=== PATIENT | male | born 1960 | race Caucasian/White ===

== ENCOUNTER 2024-06-28 21:35 | Emergency (ER) | payer MEDICARE, SELFPAY ==
--- NOTE | ~2024-06-28 | CT_ITS ---
EXAMINATION: CT brain wo con DATE: 06/28/2024 21:59 INDICATION: cva . TECHNIQUE: Computed tomography (CT) of the head was performed without intravenous contrast. The mA wa s adjusted according to patient size. Iterative reconstruction technique was employed. The dose-lengt h product was 681.00 mGy-cm. COMPARISON: 09/06/2015. FINDINGS: No acute intracranial hemorrhage or extra-axial fluid collection. No hydrocephalus, mass, or herniation. No acute ischemic infarct. Unremarkable dural venous sinus attenuation. No acute osseous abnormality. Old nasal bone fractures. Bilateral maxillary, frontal, and ethmoid mucosal thickening, small air-fluid level in the right sphe noid sinus, the remaining aerated spaces are clear. Mild atrophy and chronic white matter change. Atherosclerotic intracranial calcification. Focal calci fication in the right posterior frontal parenchyma. IMPRESSION: No acute intracranial process. Small air-fluid level in the right sphenoid sinus, may represent acute sinusitis in the appropriate c linical context. Results reported telephonically to Dr. De Leon by Dr. Cheng at 10:05 PM on 06/28/2024. Reviewed, dictated and finalized at location K. IMPRESSION: No acute intracranial process. Small air-fluid level in the right sphenoid sinus, may represent acute sinusiti s in the appropriate clinical context. Results reported telephonically to Dr. De Leon by Dr. Cheng at 10:05 PM on .
--- NOTE | ~2024-06-28 | CT_ITS ---
EXAMINATION: CTA brain carotid DATE: 06/28/2024 22:19 INDICATION: CVA TECHNIQUE: Computed tomographic angiography (CTA) of the head and neck was performed with 100 mL Omni paque-350 intravenous contrast. Automated exposure control and iterative reconstruction technique wer e employed. The dose-length product was 1313.87 mGy-cm. Maximum intensity projection and volume rend ered 3D-reconstructions were created by the technologist on a separate workstation. COMPARISON: CT brain, same date. FINDINGS: CTA HEAD: No large vessel occlusion, aneurysm, high flow vascular malformation, nidus or extravasation. Patent cerebral veins. Symmetric parenchymal enhancement. CTA NECK: Aortic arch and proximal great vessels: Mild arch calcification. Normal arch anatomy. Right common carotid, carotid bifurcation, and internal carotid artery: Moderate calcified and noncal cified plaque at the bifurcation.There is 30% stenosis of the proximal right internal carotid artery relative to normal distal artery lumen diameter (NASCET criteria). Left common carotid, carotid bifurcation, and internal carotid artery: Heavy calcified and noncalcifi ed plaque at the bifurcation.There is 32% stenosis of the proximal left internal carotid artery relat neisha to normal distal artery lumen diameter (NASCET criteria). Vertebral arteries: Severe left and moderate right short segment stenosis at the vertebral artery osbaldo gins with associated calcified plaque. Vertebral arteries co-dominant. Other findings: Focal scarring in the peripheral left lower lobe degenerative changes in the cervical spine. Multiple old rib fractures. IMPRESSION: No large vessel intracranial occlusion, high-grade intracranial stenosis, or aneurysm. No carotid or vertebral artery occlusion or dissection. Severe left and moderate right vertebral artery origin stenoses. Reviewed, dictated and finalized at location K. IMPRESSION: No large vessel intracranial occlusion, high-grade intracranial stenosis, or an eurysm. No carotid or vertebral artery occlusion or dissection. Severe left and moderate right vertebral artery origin stenoses.
--- NOTE | ~2024-06-28 | XR_ITS ---
EXAMINATION: XR chest 1V Exam Date/Time: 06/28/2024 22:03 CDT HISTORY: cva Comparison: 08/11/2016. RESULT: Lines, tubes, and devices: None. Lungs and pleura: Clear. Cardiomediastinal silhouette: Stable. Other: No acute osseous or upper abdominal finding. IMPRESSION: No acute cardiopulmonary process. Reviewed, dictated and finalized at location K.
[2024-06-28 21:44] LABS: Glucose Point of Care 174 mg/dl (65-105)
--- NOTE | 2024-06-28 21:53 | ECG_ITS ---
Test Date: 2024-06-28 22:24:53 Measurements Intervals [place] Rate: 76 P: 74 AR: 163 QRS: 68 QRSD: 112 T: 71 QT: 429 QTc: 484 Interpretive Statements SINUS RHYTHM INCOMPLETE LEFT BUNDLE BRANCH BLOCK BORDERLINE ST-T WAVE ABNORMALITY- HIGH LATERAL LEADS BASELINE ARTIFACT- I, II, III, AVR, AVL, AVF BORDERLINE ECG No previous ECG available for comparison Electronically Signed On 06-29-2024 09:07:05 CDT by Warren Faith D.O.
[2024-06-28 22:06] LABS: Basophils Absolute Auto 0.1 K/mm3 (0.0-0.1); Basophils Percent Auto 0.8 % (0.2-1.2); Eosinophils Absolute Auto 0.3 K/mm3 (0-0.3); Eosinophils Percent Auto 3.8 % (0-4.4); Hematocrit 41.4 % (42.0-52.0); Hemoglobin 13.8 g/dL (14.0-18.0); Immature Granulocyte Absolute 0.02 K/mm3 (0.00-0.031); Immature Granulocyte Percent A 0.3 % (0-0.5); Lymphocytes Absolute Auto 2.82 K/mm3 (0.9-3.2); Lymphocytes Percent Auto 38.7 % (18.3-44.2); Mean Corpuscular HGB Conc 33.3 g/dl (32-36); Mean Corpuscular Hemoglobin 30.6 pg (26-34); Mean Corpuscular Volume 91.8 fl (80-100); Monocytes Absolute Auto 0.4 K/mm3 (0.1-0.6); Monocytes Percent Auto 5.6 % (2.6-8.5); Neutrophils Absolute Auto 3.7 K/mm3 (1.3-6.7); Neutrophils Percent Auto 50.8 % (45.5-73.1); Platelet Count Result 202 k/mm3 (150-375); Red Blood Count 4.51 M/mm3 (4.6-6.20); Red Cell Distribution Width 13.2 % (11.5-14.5); White Blood Count 7.3 K/mm3 (4.5-10.0)
[2024-06-28 22:11] VITALS: BP 111/66; PULSE 80; RESP 19; TEMP 36.9; O2SAT 97
[2024-06-28 22:16] VITALS: BP 106/73; PULSE 79; RESP 18; O2SAT 96
[2024-06-28 22:16] LABS: INR 0.9; Prothrombin Time 13.1 Seconds (11.1-14.7)
[2024-06-28 22:18] LABS: Alanine Aminotransferase 19 U/L (6-50); Albumin Level 4.3 g/dL (3.5-5.1); Alkaline Phosphatase 58 U/L (38-126); Anion Gap 15 mmol/L (4-12); Aspartate Amino Transferase 28 U/L (17-59); Bilirubin,Total 0.3 mg/dL (0.2-1.3); Blood Urea Nitrogen 14 mg/dL (9-20); Calcium 8.3 mg/dL (8.4-10.2); Carbon Dioxide 18 mmol/L (22-30); Chloride 106 mmol/L (98-107); Estimated CRCL calculation 83 ml/min; Estimated Glomerular Filt Rate > 60; Glucose 155 mg/dL (65-110); Potassium 3.9 mmol/L (3.4-5.0); Sodium 139 mmol/L (137-145)
[2024-06-28 22:21] LABS: Partial Thromboplastin Time 26.8 Seconds (22.3-36.8)
[2024-06-28 22:22] VITALS: BP 106/73; PULSE 78; PULSE 79; RESP 20; O2SAT 98
[2024-06-28 22:27] LABS: Glucose Point of Care 177 mg/dl (65-105)
[2024-06-28 22:29] LABS: Troponin I 0.015 ng/mL (0.000-0.034)
[2024-06-28] MEDS: ASPIRIN 325 MG TABLET PO (23:06)
[2024-06-28] MEDS: CLOPIDOGREL BISULFATE 300 MG TABLET PO (23:07)
[2024-06-28] MEDS: MORPHINE SULFATE (*CRX) 4 MG/ML INJ IV PUSH (23:11)
[2024-06-28 23:12] VITALS: BP 116/59; PULSE 84; RESP 19; O2SAT 96
[2024-06-28 23:13] VITALS: BP 116/59; PULSE 80; PULSE 81; RESP 16; TEMP 36.6; O2SAT 96
[2024-06-28 23:18] LABS: Ethanol 106 mg/dL (<10)
--- NOTE | 2024-06-28 23:58 | ED.NEUROSD ---
HPI - Neuro Symptoms/Deficit General Chief Complaint: Suspected CVA Stated Complaint: Choking episode, drooling, possible L droop? Time Seen by Provider: 06/28/24 21:53 History of Present Illness HPI Narrative: 63-year-old male with a past medical history significant for diabetes, hypertension, obstructive sleep apnea, atrial fibrillation not on Eliquis. Presents today with left-sided facial symptoms including facial droop, slurring of speech and dropping food of his mouth and now onset left upper extremity left lower extremity weakness. EMS was initially called to scene at approximately noon for the patient's symptoms that were onset however he refused transport at that time. noted that he had worsening symptoms throughout the day and now developing profound left-sided dysarthria, facial droop, arm and leg weakness. She called EMS a 2nd time with transport him to the hospital. Patient is awake alert oriented able answer all my questions although he has severe speech deficits with dysarthria and left-sided facial droop. Left-sided arm drift is 4/5, leg drift 3/5 against gravity. No ataxia. Not any blood thinner medications aside from a baby aspirin confirmed by the at bedside. Was otherwise in his normal state of health without any trauma, accidents, injuries or infections. Related Data Allergies Allergy/AdvReac Type Severity Reaction Status Date / Time No Known Allergies Allergy Verified 10/31/16 09:03 Review of Systems Review of Systems: All systems reviewed & are unremarkable except as noted in HPI and below Exam Narrative: GENERAL: Slurring his speech, left-sided facial droop, not in any acute distress and answering questions to the best of his abilities HEAD: [Normocephalic, atraumatic.] EYES: [PERRLA and EOMI.] ENT: Nares clear, no rhinorrhea or epistaxis. Mucous membranes moist. NECK: Supple. CHEST: [Clear to auscultation. No respiratory distress.] HEART: [Regular rate and rhythm]. No murmur heard. [Normal peripheral pulses.] ABDOMEN: [Soft, nondistended], [nontender], [No rigidity or guarding] EXTREMITIES: Normal range of motion. [No edema.] SKIN: Warm, dry, no rash. NEURO: Left-sided arm and leg drift worsening left lower extremity. No ataxia, dysarthria and left-sided facial droop. Alert and oriented [x3.] PSYCH: [Normal mood and affect.] Course Vital Signs Vital signs: Vital Signs Temperature 36.9 C 06/28/24 22:11 Pulse Rate 80 06/28/24 22:11 Respiratory Rate 19 06/28/24 22:11 Blood Pressure 111/66 06/28/24 22:11 Pulse Oximetry 97 06/28/24 22:11 Oxygen Delivery Room Air 06/28/24 22:11 Temperature 36.6 C 06/28/24 23:13 Pulse Rate 80 06/28/24 23:13 Respiratory Rate 16 06/28/24 23:13 Blood Pressure 116/59 L 06/28/24 23:13 Pulse Oximetry 96 06/28/24 23:13 Oxygen Delivery Room Air 06/28/24 22:11 MDM - Neuro Symptoms/Deficit MDM Narrative Medical decision making narrative: 63-year-old male presenting for concerns of acute ischemic stroke. He has left-sided arm and leg drift worse in the left lower extremity. Left-sided facial droop and slurring of his speech with dysarthria. Onset of symptoms approximately noon according to the family members providing collateral. Patient of self is able to answer questions albeit difficult to understand given his level of dysarthria. He has normal reassuring vital signs with any significant blood pressure concerns, he is afebrile, saturating well on room air without any tachycardia. Left-sided arm and leg drift, left-sided facial droop and dysarthria without any ataxia or confusion. Stroke was activated given his symptoms onset within 24 hours and concerns for potential LVO. He is outside the window for TNK. CT head, CT head and neck angiography was ordered as well as a cardiac workup with troponin, EKG, chest x-ray, PT, PTT, CBC and CMP. Point of care glucose was normal. Workup revealed no leukocytosis or
[2024-06-29 01:04] VITALS: BP 122/68; PULSE 76; RESP 16; TEMP 36.6; O2SAT 96
[2024-06-29 01:24] VITALS: BP 124/76; PULSE 77; RESP 16; TEMP 36.6; O2SAT 99
[2024-06-29 02:00] VITALS: BP 124/76; PULSE 77; RESP 16; O2SAT 97
[2024-06-29 23:40] LABS: Estimated CRCL calculation 70 ml/min; Estimated Glomerular Filt Rate > 60
== END 2024-06-29 02:17 | disposition short-term general hospital (02) ==
PROVIDERS: Emergency Provider Student in an Organized Health Care Education/Training Program; PCP Physician Assistant
DX: I63.213 Cerebral infarction due to unspecified occlusion or stenosis of bilateral vertebral arteries (principal); I10 Essential (primary) hypertension; I48.91 Unspecified atrial fibrillation; E11.9 Type 2 diabetes mellitus without complications; G47.33 Obstructive sleep apnea (adult) (pediatric); R29.702 NIHSS score 2; Z79.82 Long term (current) use of aspirin; I44.7 Left bundle-branch block, unspecified; R94.31 Abnormal electrocardiogram [ECG] [EKG]
CPT/HCPCS: 36415; 70450; 70496; 70498; 71045; 80053; 80307; 82948; 84484; 85025; 85610; 85730; 93005; 96374; 99285; A9270; J2270; Q9967

== ENCOUNTER 2024-08-13 19:48 | Emergency (ER) | payer MEDICARE, SELFPAY ==
--- NOTE | ~2024-08-13 | XR_ITS ---
CHEST RADIOGRAPH, PA AND LATERAL CLINICAL HISTORY: lightheaded . COMPARISON: 06/28/2024 TECHNIQUE: PA and lateral views of the chest. FINDINGS The cardiomediastinal silhouette is unremarkable. The lungs are clear. Visualized osseous structures and soft tissues are unremarkable. IMPRESSION: No focal infiltrate or effusion. Reviewed, dictated and finalized at location A. ORY FOCUS TECHNICIAN
[2024-08-13 19:50] VITALS: BP 140/77; PULSE 75; RESP 16; TEMP 36.4; O2SAT 99
--- NOTE | 2024-08-13 19:53 | ECG_ITS ---
Test Date: 2024-08-13 19:55:18 Measurements Intervals [place] Rate: 72 P: 57 VA: 170 QRS: 57 QRSD: 120 T: 73 QT: 418 QTc: 457 Interpretive Statements SINUS RHYTHM INCOMPLETE LEFT BUNDLE BRANCH BLOCK BORDERLINE ST-T WAVE ABNORMALITY- INF/HIGH LAT LEADS BASELINE ARTIFACT- V4-V6 BORDERLINE ECG Compared to ECG 06/28/2024 22:24:53 NO SIGNIFICANT CHANGE Electronically Signed On 08-13-2024 20:30:57 BUSINESS DEVELOPMENT EXECUTIVE by Warren Faith D.O.
--- NOTE | 2024-08-13 21:20 | ED.GENADULT ---
HPI - General Adult General Chief complaint: Recheck/Abnormal Lab/Rx <Phil Vela MD - Last Filed: 08/13/24 21:27> Stated complaint: DIABETIC ISSUES, RECENT HEART STENT <Phil Vela MD - Last Filed: 08/13/24 21:27> Time Seen by Provider: 08/13/24 20:03 <Phil Vela MD - Last Filed: 08/13/24 21:27> History of Present Illness HPI narrative: patient is a 63-year-old male who presents ER after having an episode of feeling lightheaded and diaphoretic. Sudden onset this evening about 45 minutes prior to arrival. He was at rest when it occurred. It was not associated with any chest pain or vomiting. Patient was dizzy and nauseous. EMS arrived and patient's blood sugar was 60. After receiving D10 IV symptoms abated. He is resting comfortably at this time. Reports he recently had a CVA. He then underwent additional testing at [facility] where they performed a PAULA which showed a hole in his heart. He also underwent a stress test that was abnormal. He then had a stent placed in a blood vessel. He reports since then he has had some achiness to his right side that is been unchanged. He also reports since the stroke he has had some drooling from his left mouth but that his face is less droopy than had been before. He is supposed to start speech therapy here. <Phil Vela MD - Last Filed: 08/13/24 21:27> Related Data Allergies/adverse reactions: Allergies Allergy/AdvReac Type Severity Reaction Status Date / Time No Known Allergies Allergy Verified 08/13/24 19:57 <Phil Vela MD - Last Filed: 08/13/24 21:27> Review of Systems Review of Systems: All systems reviewed & are unremarkable except as noted in HPI and below <Phil Vela MD - Last Filed: 08/13/24 21:27> Constitutional: Constitutional: Reports no additional constitutional complaints <Phil Vela MD - Last Filed: 08/13/24 21:27> ENT: Reports dizziness, Denies nasal congestion and Denies sore throat <Phil Vela MD - Last Filed: 08/13/24 21:27> Cardiovascular: Cardiovascular: Reports no additional cardiovascular complaints <Phil Vela MD - Last Filed: 08/13/24 21:27> Respiratory: Respiratory: Reports no additional respiratory complaints <Phil Vela MD - Last Filed: 08/13/24 21:27> Gastrointestinal: Gastrointestinal: Reports no additional gastrointestinal complaints <Phil Vela MD - Last Filed: 08/13/24 21:27> Integumentary/Breasts: Skin/Breast: Reports system reviewed and no additional complaints, except as docu <Phil Vela MD - Last Filed: 08/13/24 21:27> PMFSH Past Medical History Medical History: Medical History (Updated 08/13/24 @ 21:27 by Phil Vela MD) CAD (coronary atherosclerotic disease) COPD (chronic obstructive pulmonary disease) CVA (cerebral vascular accident) Diabetes Hyperlipidemia <Phil Vela MD - Last Filed: 08/13/24 21:27> Surgical History Surgical History: Surgical History (Updated 08/13/24 @ 21:24 by Phil Vela MD) History of percutaneous coronary intervention <Phil Vela MD - Last Filed: 08/13/24 21:27> Exam Narrative: GENERAL: Well-appearing, well-nourished, and in no acute distress. HEAD: Normocephalic, atraumatic. ENT: Mucous membranes moist. CHEST: Clear to auscultation. No respiratory distress. HEART: Regular rate and rhythm. Normal peripheral pulses. ABDOMEN: Soft, nontender, nondistended. EXTREMITIES: Normal range of motion. No edema. SKIN: Warm, dry, no rash. NEURO: Alert and oriented x3. PSYCH: Normal mood and affect. <Phil Vela MD - Last Filed: 08/13/24 21:27> Course Course Emergency Course: Patient signed out to me pending 2nd troponin. He did successfully p.o. challenge without incident and his repeat blood sugar was 200 mg/dL. 2nd troponin within normal limits. Stable for discharge and advised follow up with PCP as well as his specialists given his history and recent history. <Carole Hensley MD - Last Filed: 08/14/24 17:45> Vital Signs Vital signs: Vital Signs Temperature 97.5 F L 08/13/24 19:50 Pulse Rate 75 08/13/24 19:50 Respiratory Rate 16 08/13/24 19:50 Blood Pressure 140/77 08/13/24 19:50 Pulse Oximetry 99 08/13/24 19:50 Oxygen Delivery Room Air 08/13/24 19:50 Temperature 97.5 F L 08/13/24 19:50 Pulse Rate 81 08/14/24 01:30 Respiratory Rate 18 08/14/24 01:30 Blood Pressure 151/83 H 08/14/24 01:30 Pulse Oximetry 97 08/14/24 01:30 Oxygen Delivery Room Air 08/13/24 19:50 <Phil Vela MD - Last Filed: 08/13/24 21:27> Vital Signs Temperature 97.5 F L 08/13/24 19:50 Pulse Rate 75 08/13/24 19:50 Respiratory Rate 16 08/13/24 19:50 Blood Pressure 140/77 08/13/24 19:50 Pulse Oximetry 99 08/13/24 19:50 Oxygen Delivery Room Air 08/13/24 19:50 Temperature 97.5 F L 08/13/24 19:50 Pulse Rate 81 08/14/24 01:30 Respiratory Rate 18 08/14/24 01:30 Blood Pressure 151/83 H 08/14/24 01:30 Pulse Oximetry 97 08/14/24 01:30 Oxygen Delivery Room Air 08/13/24 19:50 <Carole Hensley MD - Last Filed: 08/14/24 17:45> Medical Decision Making Vital Signs Vital Signs: Vital Signs Temperature 97.5 F L 08/13/24 19:50 Pulse Rate 75 08/13/24 19:50 Respiratory Rate 16 08/13/24 19:50 Blood Pressure 140/77 08/13/24 19:50 Pulse Oximetry 99 08/13/24 19:50 Oxygen Delivery Room Air 08/13/24 19:50 Temperature 97.5 F L 08/13/24 19:50 Pulse Rate 81 08/14/24 01:30 Respiratory Rate 18 08/14/24 01:30 Blood Pressure 151/83 H 08/14/24 01:30 Pulse Oximetry 97 08/14/24 01:30 Oxygen Delivery Room Air 08/13/24 19:50 <Phil Vela MD - Last Filed: 08/13/24 21:27> Vital Signs Temperature 97.5 F L 08/13/24 19:50 Pulse Rate 75 08/13/24 19:50 Respiratory Rate 16 08/13/24 19:50 Blood Pressure 140/77 08/13/24 19:50 Pulse Oximetry 99 08/13/24 19:50 Oxygen Delivery Room Air 08/13/24 19:50 Temperature 97.5 F L 08/13/24 19:50 Pulse Rate 81 08/14/24 01:30 Respiratory Rate 18 08/14/24 01:30 Blood Pressure 151/83 H 08/14/24 01:30 Pulse Oximetry 97 08/14/24 01:30 Oxygen Delivery Room Air 08/13/24 19:50 <Carole Hensley MD - Last Filed: 08/14/24 17:45> Lab Data Result diagrams: 08/13/24 21:26 08/13/24 21:26 <Phil Vela MD - Last Filed: 08/13/24 21:27> Labs: Lab Results 08/13/24 08/13/24 08/14/24 Range/Units 21:26 22:01 00:23 WBC 10.0 (4.5-10.0) K/mm3 RBC 4.34 L (4.6-6.20) M/mm3 Hgb 13.2 L (14.0-18.0) g/dL Hct 39.0 L (42.0-52.0) % MCV 89.9 (80-100) fl MCH 30.4 (26-34) pg MCHC 33.8 (32-36) g/dl RDW 12.7 (11.5-14.5) % Plt Count 187 (150-375) k/mm3 MPV 10.0 (7.4-10.4) fl Immature Gran % (Auto) 0.3 (0-0.5) % Neut % (Auto) 68.5 (45.5-73.1) % Lymph % (Auto) 20.8 (18.3-44.2) % [place] % (Auto) 7.0 (2.6-8.5) % Eos % (Auto) 2.6 (0-4.4) % Baso % (Auto) 0.8 (0.2-1.2) % Lymph # (Auto) 2.07 (0.9-3.2) K/mm3 [place] # (Auto) 0.7 H (0.1-0.6) K/mm3 Eos # (Auto) 0.3 (0-0.3) K/mm3 Baso # (Auto) 0.1 (0.0-0.1) K/mm3 Abs Immat Gran (auto) 0.03 (0.00-0.031) K/mm3 Absolute Neuts (auto) 6.8 H (1.3-6.7) K/mm3 Absolute Nucleated RBC 0.000 (0.0-0.012) K/mm3 Nucleated RBC % 0.0 (0.0-0.2) % PT 15.9 H (11.1-14.7) Seconds INR 1.2 APTT 30.9 (22.3-36.8) Seconds Sodium 137 (137-145) mmol/L Potassium 3.6 (3.4-5.0) mmol/L Chloride 105 (98-107) mmol/L Carbon Dioxide 22 (22-30) mmol/L Anion Gap 10 (4-12) mmol/L BUN 15 (9-20) mg/dL Creatinine 0.70 (0.7-1.3) mg/dL Estim Creat Clear Calc 116 ml/min Estimated GFR > 60 (59 - ) Glucose 140 H (65-110) mg/dL POC Capillary Glucose 272 H (65-105) mg/dl Calcium 8.6 (8.4-10.2) mg/dL Total Bilirubin 0.5 (0.2-1.3) mg/dL AST 24 (17-59) U/L ALT 21 (6-50) U/L Alkaline Phosphatase 46 (38-126) U/L Troponin I < 0.012 (0.000-0.034) ng/mL Total Protein 7.0 (6.3-8.2) g/dL Albumin 4.3 (3.5-5.1) g/dL Urine Color Yellow (Yellow) Urine Appearance Clear (Clear) Urine pH 5.5 (5.0-9.0) Ur Specific [place] 1.039 H (1.001-1.035) Urine Protein Negative (Negative) mg/dL Urine Glucose (UA) 3+ H (Negative) mg/dL Urine Ketones Negative (Negative) mg/dL Ur Blood (Man) Negative (Negative) Urine Nitrate Negative (Negative) Urine Bilirubin Negative (Negative) Urine Urobilinogen 1.0 (<2.0) mg/dL Leukocyte Esterase Rfl Negative (Negative) KARON/UL 08/14/24 Range/Units 00:25 WBC (4.5-10.0) K/mm3 RBC (4.6-6.20) M/mm3 Hgb (14.0-18.0) g/dL Hct (42.0-52.0) % MCV (80-100) fl MCH (26-34) pg MCHC (32-36) g/dl RDW (11.5-14.5) % Plt Count (150-375) k/mm3 MPV (7.4-10.4) fl Immature Gran % (Auto) (0-0.5) % Neut % (Auto) (45.5-73.1) % Lymph % (Auto) (18.3-44.2) % [place] % (Auto) (2.6-8.5) % Eos % (Auto) (0-4.4) % Baso % (Auto) (0.2-1.2) % Lymph # (Auto) (0.9-3.2) K/mm3 [place] # (Auto) (0.1-0.6) K/mm3 Eos # (Auto) (0-0.3) K/mm3 Baso # (Auto) (0.0-0.1) K/mm3 Abs Immat Gran (auto) (0.00-0.031) K/mm3 Absolute Neuts (auto) (1.3-6.7) K/mm3 Absolute Nucleated RBC (0.0-0.012) K/mm3 Nucleated RBC % (0.0-0.2) % PT (11.1-14.7) Seconds INR APTT (22.3-36.8) Seconds Sodium (137-145) mmol/L Potassium (3.4-5.0) mmol/L Chloride (98-107) mmol/L Carbon Dioxide (22-30) mmol/L Anion Gap (4-12) mmol/L BUN (9-20) mg/dL Creatinine (0.7-1.3) mg/dL Estim Creat Clear Calc ml/min Estimated GFR (59 - ) Glucose (65-110) mg/dL POC Capillary Glucose (65-105) mg/dl Calcium (8.4-10.2) mg/dL Total Bilirubin (0.2-1.3) mg/dL AST (17-59) U/L ALT (6-50) U/L Alkaline Phosphatase (38-126) U/L Troponin I < 0.012 (0.000-0.034) ng/mL Total Protein (6.3-8.2) g/dL Albumin (3.5-5.1) g/dL Urine Color (Yellow) Urine Appearance (Clear) Urine pH (5.0-9.0) Ur Specific [place] (1.001-1.035) Urine Protein (Negative) mg/dL Urine Glucose (UA) (Negative) mg/dL Urine Ketones (Negative) mg/dL Ur Blood (Man) (Negative) Urine Nitrate (Negative) Urine Bilirubin (Negative) Urine Urobilinogen (<2.0) mg/dL Leukocyte Esterase Rfl (Negative) KARON/UL <Phil Vela MD - Last Filed: 08/13/24 21:27> Lab Results 08/13/24 08/13/24 08/14/24 Range/Units 21:26 22:01 00:23 WBC 10.0 (4.5-10.0) K/mm3 RBC 4.34 L (4.6-6.20) M/mm3 Hgb 13.2 L (14.0-18.0) g/dL Hct 39.0 L (42.0-52.0) % MCV 89.9 (80-100) fl MCH 30.4 (26-34) pg MCHC 33.8 (32-36) g/dl RDW 12.7 (11.5-14.5) % Plt Count 187 (150-375) k/mm3 MPV 10.0 (7.4-10.4) fl Immature Gran % (Auto) 0.3 (0-0.5) % Neut % (Auto) 68.5 (45.5-73.1) % Lymph % (Auto) 20.8 (18.3-44.2) % [place] % (Auto) 7.0 (2.6-8.5) % Eos % (Auto) 2.6 (0-4.4) % Baso % (Auto) 0.8 (0.2-1.2) % Lymph # (Auto) 2.07 (0.9-3.2) K/mm3 [place] # (Auto) 0.7 H (0.1-0.6) K/mm3 Eos # (Auto) 0.3 (0-0.3) K/mm3 Baso # (Auto) 0.1 (0.0-0.1) K/mm3 Abs Immat Gran (auto) 0.03 (0.00-0.031) K/mm3 Absolute Neuts (auto) 6.8 H (1.3-6.7) K/mm3 Absolute Nucleated RBC 0.000 (0.0-0.012) K/mm3 Nucleated RBC % 0.0 (0.0-0.2) % PT 15.9 H (11.1-14.7) Seconds INR 1.2 APTT 30.9 (22.3-36.8) Seconds Sodium 137 (137-145) mmol/L Potassium 3.6 (3.4-5.0) mmol/L Chloride 105 (98-107) mmol/L Carbon Dioxide 22 (22-30) mmol/L Anion Gap 10 (4-12) mmol/L BUN 15 (9-20) mg/dL Creatinine 0.70 (0.7-1.3) mg/dL Estim Creat Clear Calc 116 ml/min Estimated GFR > 60 (59 - ) Glucose 140 H (65-110) mg/dL POC Capillary Glucose 272 H (65-105) mg/dl Calcium 8.6 (8.4-10.2) mg/dL Total Bilirubin 0.5 (0.2-1.3) mg/dL AST 24 (17-59) U/L ALT 21 (6-50) U/L Alkaline Phosphatase 46 (38-126) U/L Troponin I < 0.012 (0.000-0.034) ng/mL Total Protein 7.0 (6.3-8.2) g/dL Albumin 4.3 (3.5-5.1) g/dL Urine Color Yellow (Yellow) Urine Appearance Clear (Clear) Urine pH 5.5 (5.0-9.0) Ur Specific [place] 1.039 H (1.001-1.035) Urine Protein Negative (Negative) mg/dL Urine Glucose (UA) 3+ H (Negative) mg/dL Urine Ketones Negative (Negative) mg/dL Ur Blood (Man) Negative (Negative) Urine Nitrate Negative (Negative) Urine Bilirubin Negative (Negative) Urine Urobilinogen 1.0 (<2.0) mg/dL Leukocyte Esterase Rfl Negative (Negative) KARON/UL 08/14/24 Range/Units 00:25 WBC (4.5-10.0) K/mm3 RBC (4.6-6.20) M/mm3 Hgb (14.0-18.0) g/dL Hct (42.0-52.0) % MCV (80-100) fl MCH (26-34) pg MCHC (32-36) g/dl RDW (11.5-14.5) % Plt Count (150-375) k/mm3 MPV (7.4-10.4) fl Immature Gran % (Auto) (0-0.5) % Neut % (Auto) (45.5-73.1) % Lymph % (Auto) (18.3-44.2) % [place] % (Auto) (2.6-8.5) % Eos % (Auto) (0-4.4) % Baso % (Auto) (0.2-1.2) % Lymph # (Auto) (0.9-3.2) K/mm3 [place] # (Auto) (0.1-0.6) K/mm3 Eos # (Auto) (0-0.3) K/mm3 Baso # (Auto) (0.0-0.1) K/mm3 Abs Immat Gran (auto) (0.00-0.031) K/mm3 Absolute Neuts (auto) (1.3-6.7) K/mm3 Absolute Nucleated RBC (0.0-0.012) K/mm3 Nucleated RBC % (0.0-0.2) % PT (11.1-14.7) Seconds INR APTT (22.3-36.8) Seconds Sodium (137-145) mmol/L Potassium (3.4-5.0) mmol/L Chloride (98-107) mmol/L Carbon Dioxide (22-30) mmol/L Anion Gap (4-12) mmol/L BUN (9-20) mg/dL Creatinine (0.7-1.3) mg/dL Estim Creat Clear Calc ml/min Estimated GFR (59 - ) Glucose (65-110) mg/dL POC Capillary Glucose (65-105) mg/dl Calcium (8.4-10.2) mg/dL Total Bilirubin (0.2-1.3) mg/dL AST (17-59) U/L ALT (6-50) U/L Alkaline Phosphatase (38-126) U/L Troponin I < 0.012 (0.000-0.034) ng/mL Total Protein (6.3-8.2) g/dL Albumin (3.5-5.1) g/dL Urine Color (Yellow) Urine Appearance (Clear) Urine pH (5.0-9.0) Ur Specific [place] (1.001-1.035) Urine Protein (Negative) mg/dL Urine Glucose (UA) (Negative) mg/dL Urine Ketones (Negative) mg/dL Ur Blood (Man) (Negative) Urine Nitrate (Negative) Urine Bilirubin (Negative) Urine Urobilinogen (<2.0) mg/dL Leukocyte Esterase Rfl (Negative) KARON/UL <Carole Hensley MD - Last Filed: 08/14/24 17:45> Imaging Data Radiologist's impression: ITS Impressions Chest X-Ray 08/13/24 20:35 IMPRESSION: No focal infiltrate or effusion. <Phil Vela MD - Last Filed: 08/13/24 21:27> ECG Data EKG #1: ECG completion date: 08/13/24 <Phil Vela MD - Last Filed: 08/13/24 21:27> ECG completion time: 19:55 <Phil Vela MD - Last Filed: 08/13/24 21:27> EKG Interpretation: normal rate (72), sinus rhythm, non-specific ST changes, widened QRS, normal QT and NL axis <Phil Vela MD - Last Filed: 08/13/24 21:27> Discharge Plan Discharge Clinical Impression: Hypoglycemia <Phil Vela MD - Last Filed: 08/13/24 21:27> Patient Disposition: Home, Self-Care <Phil Vela MD - Last Filed: 08/13/24 21:27> Condition: Stable <Phil Vela MD - Last Filed: 08/13/24 21:27> Instructions: Antibiotic Form, Hypoglycemia in a Person with Diabetes (DC) <Phil Vela MD - Last Filed: 08/13/24 21:27> Additional Instructions: Continue taking your medications as prescribed. Follow-up with your primary care physician as well as the rest of your care team/specialists. Return to the emergency department with any new or worsening symptoms. <Phil Vela MD - Last Filed: 08/13/24 21:27> Follow-up/Referrals: Lee,MIC Zamora [Primary Care Provider] - <Phil Vela MD - Last Filed: 08/13/24 21:27> Stand Alone Forms: Work/School Release IP <Phil Vela MD - Last Filed: 08/13/24 21:27> Time of Disposition: 01:11 <Phil Vela MD - Last Filed: 08/13/24 21:27> 01:11 <Carole Hensley MD - Last Filed: 08/14/24 17:45>
[2024-08-13 21:30] LABS: Basophils Absolute Auto 0.1 K/mm3 (0.0-0.1); Basophils Percent Auto 0.8 % (0.2-1.2); Eosinophils Absolute Auto 0.3 K/mm3 (0-0.3); Eosinophils Percent Auto 2.6 % (0-4.4); Hemoglobin 13.2 g/dL (14.0-18.0); Immature Granulocyte Absolute 0.03 K/mm3 (0.00-0.031); Immature Granulocyte Percent A 0.3 % (0-0.5); Lymphocytes Absolute Auto 2.07 K/mm3 (0.9-3.2); Lymphocytes Percent Auto 20.8 % (18.3-44.2); Mean Corpuscular HGB Conc 33.8 g/dl (32-36); Mean Corpuscular Hemoglobin 30.4 pg (26-34); Mean Corpuscular Volume 89.9 fl (80-100); Monocytes Absolute Auto 0.7 K/mm3 (0.1-0.6); Neutrophils Absolute Auto 6.8 K/mm3 (1.3-6.7); Neutrophils Percent Auto 68.5 % (45.5-73.1); Platelet Count Result 187 k/mm3 (150-375); Red Blood Count 4.34 M/mm3 (4.6-6.20); Red Cell Distribution Width 12.7 % (11.5-14.5)
[2024-08-13 21:42] LABS: Alanine Aminotransferase 21 U/L (6-50); Albumin Level 4.3 g/dL (3.5-5.1); Alkaline Phosphatase 46 U/L (38-126); Anion Gap 10 mmol/L (4-12); Aspartate Amino Transferase 24 U/L (17-59); Bilirubin,Total 0.5 mg/dL (0.2-1.3); Blood Urea Nitrogen 15 mg/dL (9-20); Calcium 8.6 mg/dL (8.4-10.2); Carbon Dioxide 22 mmol/L (22-30); Chloride 105 mmol/L (98-107); Estimated CRCL calculation 116 ml/min; Estimated Glomerular Filt Rate > 60; Glucose 140 mg/dL (65-110); Potassium 3.6 mmol/L (3.4-5.0); Sodium 137 mmol/L (137-145)
[2024-08-13 21:45] LABS: INR 1.2; Prothrombin Time 15.9 Seconds (11.1-14.7)
[2024-08-13 21:46] LABS: Partial Thromboplastin Time 30.9 Seconds (22.3-36.8)
--- NOTE | 2024-08-13 21:51 | PC.NURSE ---
- Luisa - leaving to go home. She can be phone if pt. is d/c or for any update [phone].
[2024-08-13 21:54] LABS: Troponin I < 0.012 ng/mL (0.000-0.034)
--- NOTE | 2024-08-13 21:59 | PC.NURSE ---
Pt able to stand at bedside independently with no difficulty.
[2024-08-13 22:04] VITALS: BP 138/70; PULSE 78; RESP 16; O2SAT 98
[2024-08-13 22:14] LABS: Add Urine Microscopic? NO; Appearance Urine Clear (Clear); Bilirubin Urine Negative (Negative); Blood Urine Negative (Negative); Color Urine Yellow (Yellow); Glucose Urine UA 3+ mg/dL (Negative); Ketones Urine Negative (Negative); Leukocyte Esterase Ur Negative LEU/UL (Negative); Nitrate Urine Negative (Negative); Protein Urine Negative (Negative); Specific Grav Ur 1.039 (1.001-1.035); pH Urine 5.5 (5.0-9.0)
--- NOTE | 2024-08-13 22:18 | PC.NURSE ---
Pt c/o of a 03/11 headache and requesting medication. Md Vela notified. verbal order given for tylenol.
[2024-08-13] MEDS: ACETAMINOPHEN 325 MG TABLET 650 MG PO (22:40)
--- NOTE | 2024-08-14 00:19 | ECG_ITS ---
Test Date: 2024-08-14 00:19:25 Measurements Intervals [place] Rate: 81 P: 54 LA: 170 QRS: 54 QRSD: 114 T: 59 QT: 395 QTc: 460 Interpretive Statements SINUS RHYTHM INCOMPLETE LEFT BUNDLE BRANCH BLOCK DELAYED PRECORDIAL R/S TRANSITION ABNORMAL ECG Compared to ECG 08/13/2024 19:55:18 NO SIGNIFICANT CHANGE Electronically Signed On 08-14-2024 08:05:17 STEVEDORING SUPERVISOR by Warren Faith D.O.
[2024-08-14 00:27] LABS: Glucose Point of Care 272 mg/dl (65-105)
[2024-08-14 00:34] VITALS: RESP 16; O2SAT 97
--- NOTE | 2024-08-14 00:35 | PC.NURSE ---
pt states he feels fine after eating
[2024-08-14 00:51] LABS: Troponin I < 0.012 ng/mL (0.000-0.034)
[2024-08-14 01:03] VITALS: BP 173/66; PULSE 77; RESP 16; O2SAT 96
[2024-08-14 01:30] VITALS: BP 151/83; PULSE 81; RESP 18; O2SAT 97
== END 2024-08-14 01:32 | disposition home or self-care (01) ==
PROVIDERS: Emergency Medicine; Emergency Provider Student in an Organized Health Care Education/Training Program; PCP Physician Assistant
DX: E11.649 Type 2 diabetes mellitus with hypoglycemia without coma (principal); I25.10 Atherosclerotic heart disease of native coronary artery without angina pectoris; J44.9 Chronic obstructive pulmonary disease, unspecified; E78.5 Hyperlipidemia, unspecified; Z86.73 Personal history of transient ischemic attack (TIA), and cerebral infarction without residual deficits; I44.7 Left bundle-branch block, unspecified
CPT/HCPCS: 36415; 71046; 80053; 81003; 82948; 84484; 85025; 85610; 85730; 93005; 99284; A9270

== ENCOUNTER 2024-08-18 11:30 | Emergency (ER) | payer MEDICARE, SELFPAY ==
[2024-08-18 11:34] VITALS: BP 136/81; PULSE 85; RESP 20; TEMP 36.6; O2SAT 99
[2024-08-18] MEDS: TETANUS,DIPHTHERIA,AC PERTUSSIS ADULT (0.5 ML) BOOSTRIX IM (12:31)
--- NOTE | 2024-08-18 12:32 | ED_ITS ---
HPI - General Adult General Chief complaint: Wound/Laceration Stated complaint: leg lac Time Seen by Provider: 08/18/24 11:51 History of Present Illness HPI narrative: 63-year-old male presenting with a laceration to his left leg. Patient dropped a carbon fiber cutting device on his left leg sustaining a shallow 4 cm laceration. They were unable to control the bleeding at home he has been losing for the last 1 hour. Patient is on aspirin Plavix and Eliquis. No other injuries. Unknown last tetanus. Related Data Allergies Allergy/AdvReac Type Severity Reaction Status Date / Time No Known Allergies Allergy Verified 08/13/24 19:57 [facility] Past Medical History Medical History CAD (coronary atherosclerotic disease) COPD (chronic obstructive pulmonary disease) CVA (cerebral vascular accident) Diabetes Hyperlipidemia Surgical History Surgical History History of percutaneous coronary intervention Exam Narrative: APPEARANCE: No apparent distress. Head: atraumatic. EYES: EOMI, NOSE: Atraumatic NECK: Trachea midline RESPIRATORY: No increased rate of breathing CARDIOVASCULAR: RRR, ABDOMINAL: Non-distended MUSCULOSKELETAl: No obvious deformities NEURO: Alert. Moving 4/4 extremities SKIN:: 4 cm linear laceration to the inside of the left thigh, minor oozing PSYCHIATRIC: Normal affect Course Vital Signs Vital signs: Vital Signs Temperature 97.8 F 08/18/24 11:34 Pulse Rate 85 08/18/24 11:34 Respiratory Rate 20 08/18/24 11:34 Blood Pressure 136/81 08/18/24 11:34 Pulse Oximetry 99 08/18/24 11:34 Temperature 97.8 F 08/18/24 11:34 Pulse Rate 85 08/18/24 11:34 Respiratory Rate 20 08/18/24 11:34 Blood Pressure 136/81 08/18/24 11:34 Pulse Oximetry 99 08/18/24 11:34 Medical Decision Making [facility] Narrative Medical decision making narrative: -Course: 63-year-old male presenting with a leg laceration minor bleeding. Bleeding was controlled with direct pressure. Wound was explored with no foreign bodies and irrigated profusely. Wound was repaired using x5 4-0 Prolene sutures in a simple interrupted pattern. Bleeding was controlled. Patient placed on Keflex as he is high risk for infection (DM.) Given return precautions. Suture removal in 14 days. -Procedures: 4 cm simple laceration repair to the left thigh using Prolene sutures times -Interventions: Tdap -Shared decision making / Disposition: Discharge -RX Keflex 5 mg b.i.d. Vital Signs Vital Signs: Vital Signs Temperature 97.8 F 08/18/24 11:34 Pulse Rate 85 08/18/24 11:34 Respiratory Rate 20 08/18/24 11:34 Blood Pressure 136/81 08/18/24 11:34 Pulse Oximetry 99 08/18/24 11:34 Temperature 97.8 F 08/18/24 11:34 Pulse Rate 85 08/18/24 11:34 Respiratory Rate 20 08/18/24 11:34 Blood Pressure 136/81 08/18/24 11:34 Pulse Oximetry 99 08/18/24 11:34 Discharge Plan Discharge Clinical Impression: Laceration Patient Disposition: Home, Self-Care Condition: Stable Instructions: Antibiotic Form, Care For Your Stitches (ED) Additional Instructions: You wereseen in the emergency department for a laceration to her leg. Please complete the antibiotics as instructed. Please see medical professional in 14 days for suture removal. If you develop signs of infection such as redness, swelling, increased pain, or purulent discharge please return emergency department immediately. Prescriptions: New cephalexin 500 mg capsule 500 mg PO Q12H Qty: 10 0RF Follow-up/Referrals: Lee,MIC Zamora [Primary Care Provider] -
== END 2024-08-18 13:50 | disposition home or self-care (01) ==
PROVIDERS: Emergency Provider Emergency Medicine; PCP Physician Assistant
DX: S71.112A Laceration without foreign body, left thigh, initial encounter (principal); W45.8XXA Other foreign body or object entering through skin, initial encounter; I25.10 Atherosclerotic heart disease of native coronary artery without angina pectoris; J44.9 Chronic obstructive pulmonary disease, unspecified; E11.9 Type 2 diabetes mellitus without complications; E78.5 Hyperlipidemia, unspecified; Z86.73 Personal history of transient ischemic attack (TIA), and cerebral infarction without residual deficits; Z23 Encounter for immunization
CPT/HCPCS: 12001; 90471; 90715; 99283

== ENCOUNTER 2025-02-16 14:21 | Emergency (ER) | payer MEDICARE, SELFPAY ==
[2025-02-16 14:25] VITALS: BP 143/95; PULSE 69; RESP 20; TEMP 36.6; O2SAT 100
--- OUTSIDE RECORDS SUMMARY | 2025-02-16 14:36 | XMS_ITS | Encounter Summary ---
Author Organization [facility] Address [address] [place] [address] Care Team Providers Care Relief Manager Name Role Phone Sera Howard Primary Care Provider [phone] Rikki Romero MD Unavailable [phone] Sultan Maria Luisa Teran MD Unavailable [phone] Keenan Mckoy RN Unavailable Emmy Barragan [facility] Unavailable Cary Pena MD Unavailable [phone] Shyann Mijares MA Unavailable Rigoberto Rodriguez MD Unavailable [phone] Ching Chun LPN Unavailable [phone] Encounter Details Date Type Department Care Team (Late st Contact Info) Description 07/06/2015 Orders Only [facility] Health Information Management [address] [place] [address] Scanning, Provider Social History Tobacco Use Types Packs/Day Years Used Date Smoking Tobacco: Never Assessed Sex and Gender Information Value Date Recorded Sex Assigned at Not on file Legal Sex Male 6:48 AM SUPERVISOR 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 difficile Comment:2012 01/08/2015 01/06/2015 04/18/2022 7:55 AM C DT COVID: Suspected 10/25/2021 10/27/2021 10/27/2021 8:01 PM SUPERVISOR FIREWORKS ASSEMBLY COVID: Suspected 04/15/2022 04/15/2022 04/15/2022 4:54 PM CDT COVID: Suspected 11/05/2024 11/05/2024 11/05/2024 9:48 AM SUPERVISOR FIREWORKS ASSEMBLY COVID: Suspected 12/23/2024 12/23/2024 12/23/2024 9:13 AM CDT documented as of this encounter Care Teams Relief Manager Relationship Specialty Start Date End Date Sera Howard PA [address] [facility] [address] [facility] [address] [place] [address] PCP - General Internal Medicine 01/03/19 Rikki Romero MD [address] [facility] [address] [place] [address] Consulting Physician Pulmonary Disease 01/30/19 Sultan Maria Luisa Teran MD [address] [facility] [address] [address] Line Service Person Cardiovascular Disease 01/30/19 Keenan Mckoy, GABO [address] [facility] [address] [place] [address] Outpatient Dietitian 07/04/24 09/12/24 Emmy Barragan RPh [address] [facility] [address] [place] [address] Pharmacist Pharmacy 07/31/24 08/01/24 [place] [address] [address] [facility] [address] [place] [address] Consulting Physician Cardiovascular Disease 08/27/24 Shyann Mijares MA [address] [place] [address] [address] [place] [address] ACO Care Heating Worker 11/06/24 11/07/24 Rigoberto Rodriguez MD [address] [place] [address] [address] [place] [address] Surgeon Thoracic Surgery 01/06/25 Ching Chun LPN [address] [place] [address] [address] [place] [address] Outpatient Dietitian 01/07/25 01/07/25 documented as of this encounter
--- OUTSIDE RECORDS SUMMARY | 2025-02-16 14:37 | XMS_ITS | Clinical Summary ---
Author Organization [facility] Address [address] [place] [address] Care Team Providers Care Railroad Repairer Name Role Phone Unavailable Primary Care Provider Unavailabl e Social History Tobacco Use Types Packs/Day Years Used Date Smoking Tobacco: Never Assessed Sex and Gender Information Value Date Recorded Sex Assigned at Not on file Legal Sex Male 6:39 PM CDT Gender Identity Not on file Sexual Orientation Not on file Plan of Treatment Health Maintenance Due Date Last Done Comments Colorectal Cancer Screening Colonoscopy (10 Years) 1962 Annual Physical 1965 Hepatitis C 1980 DTaP, Tdap and Td Vaccines ( 1 - Tdap) 1981 Pneumococcal Vaccine: 50+ Ye ars (1 of 1 - PCV) 2012 Zoster Vaccines (1 of 2) 2012 COVID-19 Vaccine ( - 2023-2 5 season) 2024 RSV Immunization or 60+ Years (1 - 1-dose 75+ series) 2037 Meningococcal B Vaccine Aged Out No l onger eligible based on patient's age to complete this topic Meningococcal Vaccine Aged Out No vinicius cindy eligible based on patient's age to complete this topic RSV Immunizations Under 20 Months Aged Out No longer eligible based on patient's age to complete this topic
--- OUTSIDE RECORDS SUMMARY | 2025-02-16 14:37 | XMS_ITS | Encounter Summary ---
Author Organization [facility] Care Team Providers Care Academic Support Assistant Name Role Phone Sera Howard Primary Care Provider [phone]- [phone] Rikki Romero MD Unavailable [phone] Sultan Maria Luisa Teran MD Unavailable [phone] Keenan Mckoy RN Unavailable [phone] Emmy Barragan [facility] Unavailable Cary Pena MD Unavailable [phone] Shyann Mijares MA Unavailable Rigoberto Rodriguez MD Unavailable [phone] Ching Chun LPN Unavailable [phone] Encounter Details Date Type Department Care Team (Latest Contact Info) Description 01/08/2015 Orders Only [facility] ProviderKumar MD [address] [place] [address] Social History Tobacco Use Types Packs/Day Years Used Date Smoking Tobacco: Never Assessed Sex and Gender Information Value Date Recorded Sex Assigned at Not on file Legal Sex Male 6:48 AM INTAKE SPECIALIST Gender Identity Not on file Sexual Orientation Not on file documented as of this encounter Plan of Treatment Not on file documented as of this encounter Procedures Procedure Name Priority Date/Time Associated Diagnosis Comments SCAN - LABS 10/28/2016 12:00 AM INTAKE SPECIALIST CARDIOLOGY REPORT 10/26/2016 12: 00 AM INTAKE SPECIALIST CARDIOLOGY REPORT 10/26/2016 12: 00 AM INTAKE SPECIALIST CARDIOLOGY REPORT 10/26/2016 12: 00 AM INTAKE SPECIALIST documented in this encounter Results * SCAN - LABS (10/28/2016 12:00 AM INTAKE SPECIALIST) Narrative 10/28/2016 12:00 AM INTAKE SPECIALIST Ordered by an unspecified provider. [facility] Provider Final Res ult * CARDIOLOGY REPORT (10/26/2016 12:00 AM INTAKE SPECIALIST) Anatomical Region Laterality Modality Other Narrative 10/26/2016 12:00 AM INTAKE SPECIALIST Ordered by an unspecified provider. [facility] Provider CV CARDIAC SERVICES PROCE DURES Final Result * CARDIOLOGY REPORT (10/26/2016 12:00 AM INTAKE SPECIALIST) Anatomical Region Laterality Modality Other Narrative 10/26/2016 12:00 AM INTAKE SPECIALIST Ordered by an unspecified provider. [facility] Provider CV CARDIAC SERVICES PROCE DURES Final Result * CARDIOLOGY REPORT (10/26/2016 12:00 AM INTAKE SPECIALIST) Anatomical Region Laterality Modality Other Narrative 10/26/2016 12:00 AM INTAKE SPECIALIST Ordered by an unspecified provider. [facility] Provider CV CARDIAC SERVICES PROCE DURES Final Result documented in this encounter Visit Diagnoses Not on filedocumented in this encounter Additional Health Concerns Infection Onset Date Last Indicated Resolved Time C. difficile Comment:2012 01/08/2015 01/06/2015 04/18/2022 7:55 AM C DT COVID: Suspected 10/25/2021 10/27/2021 10/27/2021 8:01 PM INTAKE SPECIALIST COVID: Suspected 04/15/2022 04/15/2022 04/15/2022 4:54 PM CDT COVID: Suspected 11/05/2024 11/05/2024 11/05/2024 9:48 AM INTAKE SPECIALIST COVID: Suspected 12/23/2024 12/23/2024 12/23/2024 9:13 AM CDT documented as of this encounter Care Teams Academic Support Assistant Relationship Specialty Start Date End Date Sera Howard PA [address] [facility] [address] [facility] [address] [place] [address] PCP - General Internal Medicine 01/03/19 Rikki Romero MD [address] [facility] [address] [facility] [address] [place] [address] Consulting Physician Pulmonary Disease 01/30/19 Sultan Maria Luisa Teran MD [address] [facility] [facility] [address] [place] [address] Supervisor [place] Cardiovascular Disease 01/30/19 Keenan Mckoy, GABO [address] [place] [address] [address] [place] [address] Trencher Driver 07/04/24 09/12/24 Emmy Barragan, [address] [place] [address] Pharmacist Pharmacy 07/31/24 08/01/24 [place] [address] [address] [facility] [address] [place] [address] Consulting Physician Cardiovascular Disease 08/27/24 Shyann Mijares MA [address] [place] [address] [address] [place] [address] ACO Care Academic Advising Director 11/06/24 11/07/24 Rigoberto Rodriguez MD [address] [place] [address] [address] [place] [address] Surgeon Thoracic Surgery 01/06/25 Ching Chun LPN [address] [place] [address] [address] [place] [address] Trencher Driver 01/07/25 01/07/25 documented as of this encounter
--- OUTSIDE RECORDS SUMMARY | 2025-02-16 14:37 | XMS_ITS | Encounter Summary ---
Author Organization [facility] Healthcare Address [address] [place] [address] Care Team Providers Care Mass Spectrometry Manager Name Role Phone eSra Howard Primary Care Provider [phone]- [phone] Rikki Romero MD Unavailable [phone] Sultan Maria Luisa Teran MD Unavailable [phone] Keenan Mckoy RN Unavailable Emmy Barragan [facility] Unavailable Cary Pena MD Unavailable Shyann Mijares MA Unavailable Rigoberto Rodriguez MD Unavailable [phone] Ching Chun LPN Unavailable [phone] Encounter Details Date Type Department Care Team (Late st Contact Info) Description 06/28/2024 Orders Only [facility] Health Information Management [address] [place] [address] Scanning, Provider Social History Tobacco Use Types Packs/Day Years Used Date Smoking Tobacco: Former Cigarettes 0.2 42 0 01/30/1979 - 01/30/2021 Cigars Smokeless Tobacco: Never Alcohol Use Standard Drinks/Week Comments Yes 0 (1 standard drink = 0.6 oz pur e alcohol) AUDIT-C Answer Date Recorded Q1: How often do you have a drink containing alcohol? Never 06/13/2024 Q2: How many drinks containi ng alcohol do you have on a typical day when you are drinking? Patient does not drink Q3: How often do you have si x or more drinks on one occasion? Never 06/13/2024 PHQ-2 Answer Date Recorded PHQ-2 Total Score 0 11/02/2023 Personal Safety Answer Date Recorded Have you ever been in or are you currently in a harmful physical or emotional relationship or is someone making you feel afraid or unsafe? 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 DIRECTOR Gender Identity Not on file Sexual Orientation Not on file Occupation Industry Job Start Date Job End Date Disablilty Not on file Not on file Not on file documented as of this encounter Plan of Treatment Not on file documented as of this encounter Procedures Procedure Name Priority Date/Time Associated Diagnosis Comments SCAN - RADIOLOGY/IMAGING 06/28/2024 documented in this encounter Results * SCAN - RADIOLOGY/IMAGING (06/28/2024) Anatomical Region Laterality Modality Other Provider Scanning Final Result documented in this encounter Visit Diagnoses Not on filedocumented in this encounter Additional Health Concerns Infection Onset Date Last Indicated Resolved Time COVID: Suspected 11/05/2024 11/05/2024 11/05/2024 9:48 AM WORKDAY DIRECTOR COVID: Suspected 12/23/2024 12/23/2024 12/23/2024 9:13 AM CDT documented as of this encounter Care Teams Mass Spectrometry Manager Relationship Specialty Start Date End Date Sera Howard PA [address] [facility] [address] [place] [address] PCP - General Internal Medicine 01/03/19 Rikki Romero MD [address] [facility] [address] [place] [address] Consulting Physician Pulmonary Disease 01/30/19 Sultan Maria Luisa Teran MD [address] [facility] [address] [address] Railroad Operator Cardiovascular Disease 01/30/19 Keenan Mckoy, RN [address] [place] [address] [address] [place] [address] Hereditary Cancer Program Coordinator 07/04/24 09/12/24 Emmy Barragan, [address] [place] [address] Pharmacist Pharmacy 07/31/24 08/01/24 [place] [address] [address] [facility] [address] [place] [address] Consulting Physician Cardiovascular Disease 08/27/24 Shyann Mijares MA [address] [place] [address] [address] [place] [address] ACO Care Planting Supervisor 11/06/24 11/07/24 Rigoberto Rodriguez MD [address] [place] [address] [address] [place] [address] Surgeon Thoracic Surgery 01/06/25 Ching Chun LPN [address] [place] [address] [address] [place] [address] Hereditary Cancer Program Coordinator 01/07/25 01/07/25 documented as of this encounter
--- OUTSIDE RECORDS SUMMARY | 2025-02-16 14:37 | XMS_ITS | Clinical Summary ---
[place] [facility] [place] [address] [facility] Address [address] [place] [address] Care Team Providers Care Design Printing Machine Setter Name Role Phone Sera Howard Primary Care Provider [phone] Rikki Romero MD Unavailable [phone] Sultan Maria Luisa Teran MD Unavailable [phone] Cary Pena MD Unavailable [phone] Rigoberto Rodriguez MD Unavailable [phone] Allergies No known active allergies Medications empagliflozin (Jardiance) 25 mg tabletIndication s:type 2 diabetes mellitus Take 1 tablet (25 mg total) by mouth daily E11.65 90 tablet 4 02/07/20 24 Active acetaminophen (TYLENOL) 325 mg tablet Take 2 tablets (650 mg total) by mouth every 8 (eight) hours as needed 07/02/20 24 Active OneTouch Delica Plus Lancet 33 gauge misc USE 1 LANCETS TO CHECK GLUCOSE TWICE DAILY BEFORE BREAKFAST AND DINNER 05/14/20 24 Active pen needle, diabetic 32 gauge x 5/32 needleIndication s:Type 2 diabetes mellitus with diabetic polyneuropathy, without long-term current use of insulin (HCC) Use to inject insulin up to 4times/day. E11.65 100 each 3 07/08/20 24 Active lancets misc 1 each by other route daily Use to monitor blood sugar daily. E11.65 100 each 3 07/08/20 24 Active blood-glucose meter kit Use daily as directed for monitoring of blood sugar for diabetes. E11.65 1 kit 1 07/08/20 24 Active blood glucose diagnostic (glucose blood) strip Check blood sugar daily or as directed. E11.65 100 each 4 07/08/20 24 Active buPROPion XL (WELLBUTRIN XL) 300 mg 24 hr tablet Take 1 tablet (300 mg total) by mouth every morning 90 tablet 1 08/27/20 24 Active Brilinta 90 mg tablet Take 1 tablet (90 mg total) by mouth 2 (two) times a day Active melatonin tablet Take 1 tablet (3 mg total) by mouth nightly as needed for sleep Active UNABLE TO FIND Take 1 each by mouth nightly as needed (sleep) Med Name: Jayden PM Active apixaban (Eliquis) 5 mg tablet Take 1 tablet by mouth twice daily 200 tablet 1 11/15/19 25 Active losartan (COZAAR) 100 mg tablet Take 1 tablet by mouth once daily 90 tablet 11/15/19 25 Active nitroglycerin (NITROSTAT) 0.4 mg SL tablet DISSOLVE ONE TABLET UNDER THE TONGUE EVERY 5 MINUTES NEEDED FOR CHEST PAIN. DO NOT EXCEED A TOTAL OF 3 DOSES IN 15 MINUTES 12/05/19 25 Active albuterol 2.5 mg /3 mL (0.083 %) nebulizer solutionIndicati ons:Moderate persistent asthma without complication,Chr onic obstructive pulmonary disease, unspecified COPD type (HCC),Seasonal allergic rhinitis due to pollen Take 3 mL (2.5 mg total) by nebulization 3 (three) times a day For treatment of COPD, J44.9 270 mL 3 12/11/19 25 Active tiotropium bromide (Spiriva Respimat) 2.5 mcg/actuation inhaler Inhale 2 puffs daily 1 each 12/11/19 25 Active fluticasone propion-salmeter oL (Advair Diskus) 500-50 mcg/dose diskus inhalerIndicatio ns:Moderate persistent asthma without complication Inhale 1 puff 2 (two) times a day Rinse mouth with water after use. Do not swallow. 3 each 12/11/19 25 025 Active dupilumab (Dupixent Pen) pen injector Inject 2 mL (300 mg total) under the skin every 14 (fourteen) days 2 mL 12/19/19 25 Active benzonatate (TESSALON) 200 mg capsuleIndicatio ns:Cough Take 1 capsule (200 mg total) by mouth 3 (three) times a day as needed for cough 45 capsule 1 01/07/20 25 Active busPIRone (BUSPAR) 15 mg tabletIndication s:Generalized Anxiety Disorder Take 1 tablet (15 mg total) by mouth 3 (three) times a day 90 tablet 3 01/07/20 25 025 Active polyethylene glycol (MIRALAX) 17 gram/dose bulk powderIndication s:constipation Take 17 g by mouth daily as needed (Constipation) 01/07/20 25 Active senna-docusate (PERICOLACE) 8.6-50 mgIndications:co nstipation Take 1 tablet by mouth 2 (two) times a day as needed for constipation 01/07/20 25 Active gabapentin (NEURONTIN) 300 mg capsuleIndicatio ns:Postoperative Acute Pain Take 1 capsule (300 mg total) by mouth 3 (three) times a day 90 capsule 01/16/20 25 Active albuterol HFA (PROVENTIL HFA,VENTOLIN HFA,PROAIR HFA) 90 mcg/actuation inhalerIndicatio ns:Chronic obstructive pulmonary disease, unspecified COPD type (HCC),Seasonal allergic rhinitis due to pollen Inhale 2 puffs every 6 (six) hours as needed for wheezing or shortness of breath 8.5 g 2 01/21/[address] (CYMBALTA) 60 mg capsuleIndicatio ns:Moderate episode of recurrent major depressive disorder (HCC) Take 1 capsule (60 mg total) by mouth 2 (two) times a day 180 capsule 1 01/21/20 25 Active rosuvastatin (CRESTOR) 40 mg tabletIndication s:Hypercholester emia Take 1 tablet (40 mg total) by mouth daily 90 tablet 01/28/20 25 Active isosorbide mononitrate ER (IMDUR) 30 mg 24 hr tablet Take 1 tablet (30 mg total) by mouth daily Active Soliqua 100/33 100 unit-33 mcg/mL insulin penIndications:t ype 2 diabetes mellitus Inject 50 Units under the skin daily Take 50 units daily. E11.65 45 mL 4 01/30/20 25 Active acetone, urine, test strip Test first AM urine and as directed 100 strip 11 01/30/20 25 Active insulin lispro (HumaLOG, ADMELOG) 100 unit/mL pen for injectionIndicat ions:type 2 diabetes mellitus Use lispro insulin only for sliding scale before meals. No sliding scale at bedtime. Do not take any insulin if blood sugar less than 200, - take 5 units between 201-250, take 7 units between 251-300, take 9 units between 301-350, take 11 units between 351-400, take 14 units between 401-450. Maximum 42 units daily as needed e11.65 15 mL 2 01/30/20 25 Active aspirin 81 mg enteric coated tablet Take 1 tablet (81 mg total) by mouth nightly Discontinu ed(Therapy completed) rosuvastatin (CRESTOR) 40 mg tablet Take 1 tablet by mouth once daily 90 tablet 10/25/19 Discontinu ed(Reorder ) albuterol HFA (PROVENTIL HFA,VENTOLIN HFA,PROAIR HFA) 90 mcg/actuation inhalerIndicatio ns:Moderate persistent asthma without complication,Chr onic obstructive pulmonary disease, unspecified COPD type (HCC),Seasonal allergic rhinitis due to pollen Inhale 2 puffs every 6 (six) hours as needed for wheezing or shortness of breath 8.5 g 12/11/19 Discontinu ed(Reorder ) montelukast (SINGULAIR) 10 mg tabletIndication s:Moderate persistent asthma without complication,Chr onic obstructive pulmonary disease, unspecified COPD type (HCC),Seasonal allergic rhinitis due to pollen Take 1 tablet (10 mg total) by mouth nightly 90 tablet 12/11/19 Discontinu ed(Therapy completed) DULoxetine DR (CYMBALTA) 60 mg capsuleIndicatio ns:Moderate episode of recurrent major depressive disorder (HCC) Take 1 capsule by mouth once daily 90 capsule 12/28/19 025 Discontinu ed(Reorder ) Soliqua 100/33 100 unit-33 mcg/mL insulin penIndications:t ype 2 diabetes mellitus Take 25 units twice a day 9:00 a.m. and 9:00 p.m. 30 mL 2 01/07/20 25 025 Discontinu ed(Reorder ) oxyCODONE (ROXICODONE) 15 mg immediate release tabletIndication s:Pain,Left lateral chest wall pain at the site of chest tube Take 1 tablet (15 mg total) by mouth every 8 (eight) hours as needed for pain 20 tablet 01/07/20 25 025 Discontinu ed(Therapy completed) insulin lispro (HumaLOG, ADMELOG) 100 unit/mL pen for injectionIndicat ions:type 2 diabetes mellitus Use lispro insulin only for sliding scale before meals. No sliding scale at bedtime. Do not take any insulin if blood sugar less than 140, take 2 units between 141-160, take 3 units between 161-200, take 5 units between 201-250, take 7 units between 251-300, take 9 units between 301-350, take 11 units between 351-400, take 14 units between 401-450. Maximum 42 units daily as needed 15 mL 2 01/07/20 25 025 Discontinu ed(Reorder ) traMADoL (ULTRAM) 50 mg tabletIndication s:Acute post-operative pain Take 1 tablet (50 mg total) by mouth every 6 (six) hours as needed for pain (For severe pain not relieved by over the counter medications) for up to 7 days 24 tablet 01/16/20 25 025 Discontinu ed(Therapy completed) levoFLOXacin (LEVAQUIN) 500 mg tabletIndication s:Respiratory tract infection Take 1 tablet (500 mg total) by mouth daily for 7 days 7 tablet 01/18/20 25 025 Active Problems Patient Care Coordination No te Formatting of this note migh t be different from the original. CAD for BIC Problem Noted Date Diagnosed Date Obesity (BMI 30.0-34.9) 02/02/2025 Assessment & Plan (02/02/2025 3:49 PM CDT): Discussed the patient's BMI. The BMI is above average. BMI management plan is completed. BMI Follow-up includes: nutrition counseling, exercise counseling and education provided. Anemia 01/20/2025 Assessment & Plan (01/20/2025 5:11 PM CDT): Hgb has been around 9-10 (baseline is 14) since June of 2024. Colonoscopy in June revealed 2 polyps which were removed, diverticulosis and non-bleeding internal hemorrhoids. Patient denies melena, bloody stools, easy bleeding/bruising or hematuria. Blood loss is less likely to be the cause of his anemia. Will obtain iron panel, CMP and B12 level to evaluate other etiologies. Chronic obstructive pulmonary disease 01/20/2025 Assessment & Plan (01/20/2025 5:27 PM CDT): Shortness of breath is worsening recently. PE ruled out. Patient admits to not having filled his inhalers from Dr. Romero after discharge from hospital. He is currently trying to get Dupixent approved by patient's insurance for his fibrinous pleuritis diagnosis. Has PFTs scheduled next month and follow up with pulm in March. - Keep your scheduled appointments with Dr. Romero - Use your inhalers as prescribed by pulmonology - Wixela is your maintenance inhaler that you use daily and albuterol is your rescue inhaler to use only as needed for extra improvement in breathing - You do not need to continue using your nebulizer since you have an albuterol inhaler - Continue using your incentive spirometer - Continue taking Mucinex or and OTC allergy pill to help with mucus production Seasonal allergic rhinitis due to pollen 025 Assessment & Plan (01/20/2025 5:20 PM CDT): Patient endorses sputum production that he has been taking Mucinex for with some improvement. Seasonal rhinitis is likely contributing to his chronic bronchitis/COPD and sputum production. May continue taking Mucinex as needed to thin out the mucus. Avoid allergy triggers like pollen, pet dander, lint and dust Use a dehumidifier in the home Nasal corticosteroids (Flonase) work best when used daily; may take up to 2 weeks to reach full effect Use OTC antihistamines like Claritin or Krissy Do not use Afrin for longer than 3 days for congestion relief Hypoglycemia due to insulin 01/06/2025 Acute postoperative pain 01/02/2025 Moderate persistent asthma with acute exacerbati on 01/01/2025 Type 2 diabetes mellitus wit h hyperglycemia, with long-term current use of insulin 01/01/2025 Assessment & Plan (01/20/2025 5:18 PM CDT): Keep your appointment with Dr. Boyle. Continue taking your Soliqua twice daily and using your Humalog on a sliding scale until you see endocrinology. - Will have to get your A1c checked every 3-6 months - Reasonable A1c of <7 - Always take your insulin, especially when you are sick - Check the bottoms of your feet - See your eye doctor yearly - Sweating, shaking, hunger and anxiety can indicate hypoglycemia - Weight management - Monitoring carb intake Mixed diabetic hyperlipidemi a associated with type 2 diabetes mellitus 01/01/2025 Hyponatremia 01/01/2025 Hypocalcemia 01/01/2025 Normocytic hypochromic anemia 01/01/2025 Diabetic ketoacidosis withou t coma associated with type 2 diabetes mellitus 12/23/2024 Multifocal pneumonia 12/23/2024 Pleural effusion on left 12/23/2024 Empyema of lung 12/23/2024 History of cardioembolic cerebrovascular acciden t (CVA) 07/21/2024 Overview (07/21/2024): 07/2024: CT showed area in the right frontoparietal lobe suggestive of subacute infarct. Assessment & Plan (07/21/2024 4:09 PM CDT): 07/2024: CT showed area in the right frontoparietal lobe suggestive of subacute infarct. Continue with aspirin Eliquis and statin. Continue tight control of blood pressure. Follow-up with cardiology and vascular surgery. Continue tight control of his diabetes with Chelsie Boyle nurse practitioner. Will plan evaluation by speech Physical therapy and Occupational therapy outpatient at [facility]. Referral given. Await their recommendation Freestyle Yvrose 3 continuous glucose monitoring device 07/08/2024 Assessment & Plan (01/29/2025 8:26 AM CDT): Continuous glucose monitor (cgm) applied from 01/16/2025 to 01/29/2025 This device was placed for monitor and treatment of blood sugar. Interpretation of data- 87% time in range. Average glucose 141. 13% hyperglycemia. 0% hypoglycemia. GMI at 6.7% Assessment & Plan (07/08/2024 9:42 AM CDT): Continuous glucose monitor (cgm) applied from 06/25/2024 to 07/08/2024 This device was placed for monitor and treatment of blood sugar. Interpretation of data- 78% time in range. Average glucose 153. 22% hyperglycemia. 0% hypoglycemia. Increase Soliqua to 34 units daily. Encouraged to call for hypoglycemia Prostate cancer screening 01/09/2023 Assessment & Plan (01/09/2023 9:45 PM CDT): Check PSA Chronic pain syndrome 01/09/2023 Coronary artery disease 04/15/2022 Assessment & Plan (01/20/2025 5:31 PM CDT): Patient has not seen cardiology for follow-up on his possible PFO, afib and carotid stenosis. 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 He says he will make an appointment with cards once his breathing has resolved. Fatigue 06/22/2021 Assessment & Plan (01/09/2023 9:44 PM CDT): Probably multifactorial. Check labs and followup to re-evaluate Assessment & Plan (11/25/2021 10:04 PM PIPING SUPERVISOR): Probably multifactorial. Check labs and followup to re-evaluate Assessment & Plan (06/22/2021 10:25 AM CDT): Probably multifactorial. Check labs and followup to re-evaluate Moderate persistent asthma without complication 08/23/2019 Assessment & Plan (11/25/2023 10:14 PM PIPING SUPERVISOR): Continue per pulmonology. See COPD Assessment & Plan (08/28/2021 12:53 PM PIPING SUPERVISOR): Stop smoking. Continue per Pulmonary Assessment & Plan (06/22/2021 10:24 AM CDT): Continue per Pulmonary He has stopped smoking Cigar smoker 02/01/2019 Overview (02/01/2019): Assessment & Plan (08/28/2021 12:53 PM PIPING SUPERVISOR): Encouraged smoking cessation. Discussed 3 minutes. Reviewed options for assistance with cessation. Reviewed residential sequela associated with smoking. Pt declines assistance at this time but may contact the office at anytime for further help as they desire. Assessment & Plan (02/26/2021 12:02 AM CDT): Stop smoking. Encouraged smoking cessation. Discussed 3 minutes. Reviewed options for assistance with cessation. Reviewed continuous churn buttermaker sequela associated with smoking. Pt declines assistance at this time but may contact the office at anytime for further help as they desire. Assessment & Plan (11/24/2020 11:01 AM PIPING SUPERVISOR): He was strongly advised to stop smoking. Assessment & Plan (11/18/2020 1:49 PM PIPING SUPERVISOR): Stop smoking. Assessment & Plan (10/25/2020 6:31 PM PIPING SUPERVISOR): Encouraged smoking cessation. Discussed 3 minutes. Reviewed options for assistance with cessation. Reviewed residential sequela associated with smoking. Pt declines assistance at this time but may contact the office at anytime for further help as they desire. Assessment & Plan (02/27/2019 8:01 PM CDT): Encouraged smoking cessation. Discussed approx 3 minutes. No desire to stop Assessment & Plan (02/01/2019 12:59 PM CDT): Encouraged smoking cessation. Discussed approx 3 minutes. Not interested in cessation History of DC (myocardial infarction) 02/01/2019 Overview (02/01/2019): 01/2018 . Assessment & Plan (11/24/2020 11:03 AM PIPING SUPERVISOR): No definite history of an DC. . Though he thinks that he had an DC. Assessment & Plan (02/27/2019 8:01 PM CDT): Will probably return to a BB. Encouraged to start ASA Encouraged statin, start today Reviewed with patient that uncontrolled chronic conditions like his afib, dm and alcoholism and smoking all increase his risk of repeat event. Assessment & Plan (02/01/2019 1:29 PM CDT): Non-compliant to followup. Not currently on BB or MARY or statin. Encouraged to followup with Cardio. PIERRE on CPAP 01/30/2019 Assessment & Plan (07/21/2024 4:10 PM CDT): Encouraged to follow-up with sleep medicine. Does see Dr. Romero pulmonary Assessment & Plan (10/25/2020 5:17 PM PIPING SUPERVISOR): Patient has needed supplies but has not been using. Encouraged to restart and followup with Pulmonary. He will set the appointment Assessment & Plan (02/27/2019 8:07 PM CDT): Encoruaged to use qnight. Has needed supplies Assessment & Plan (02/01/2019 12:50 PM CDT): Encoaurged to use to avoid continuous churn buttermaker sequela from untreated PIERRE not limited to , progression of afib/heart damage, pulm HTN etc. A-fib 01/30/2019 Assessment & Plan (07/21/2024 4:09 PM CDT): Continue per Cardiology. He is on Eliquis and currently rate seems well control Assessment & Plan (01/09/2023 9:39 PM CDT): History of AFib. Patient has not followed with cardio in a couple of years. Would prefer to see Dr. Dover as he saw him in the hospital last time he was in. Encouraged him to call the office set the appointment so that he can address his cardiovascular concerns. Assessment & Plan (08/28/2021 12:50 PM PIPING SUPERVISOR): Continue per cardio. He still has not called Dr. dalton it is office to reschedule. Strongly encouraged an appointment. Assessment & Plan (02/26/2021 12:02 AM CDT): Continue per Cardio. Assessment & Plan (11/24/2020 11:01 AM PIPING SUPERVISOR): History of paroxysmal atrial fibrillation. Was on Multaq and Xarelto at 1 time. No more. The EKG today shows a normal sinus rhythm, normal QRS morphology. Assessment & Plan (11/18/2020 1:47 PM PIPING SUPERVISOR): Has followup with Cardio Dr. Teran. Will discuss AC with him. Assessment & Plan (10/25/2020 6:21 PM PIPING SUPERVISOR): This is a significant, separately identifiable problem that was evaluated and managed on the same day as the wellness exam Needs to re-establish with Dr. Watts. Encouraged ASA at this point since he has chosen to be off AC. Will encourage revisiting this as he has stopped drinking. Assessment & Plan (02/27/2019 8:05 PM CDT): Pt choosing to not treat or be on AC> Encouraged ASA. Encouraged him to followup with Cardio He verbalizes risks Assessment & Plan (02/01/2019 1:18 PM CDT): Untreated/Non-compliance. He verbalizes risk of stroke from deciding not to be on AC. Encouraged followup with Cardio to discuss treatment/options. He will set his own appt as he is an established patient Non compliance w medication regimen 01/30/2019 Assessment & Plan (06/22/2021 10:21 AM CDT): Stressed importance of taking his medications daily to manage his conditions and prevent residential sequela Assessment & Plan (10/25/2020 6:28 PM PIPING SUPERVISOR): Stressed importance of taking medication as instructed. He states he is motivated to care for himself now that he is off alcohol. Assessment & Plan (02/01/2019 1:35 PM CDT): Non-compliance continues which increases the complexity of his multiple co-morbidities. Have discussed with him and his multiple times and again today that his choice to not take medication as directed, followup with appointments as instructed and continue to smoke and drink excessive alcohol he is increasing his chance for continued poor outcomes/sequela not limited to , stroke, another DC, renal failure, debility, etc. He voices full understanding. Essential (primary) hypertension 01/30/2019 Assessment & Plan (07/21/2024 4:10 PM CDT): Bp is stable/in acceptable range for any co-morbidities. Encouraged to limit sodium intake and exercise for weight control. Continue per Cardiology. Continue losartan 100 Assessment & Plan (07/08/2024 9:39 AM CDT): This is a chronic condition which is not at goal upon arrival. At goal after rest. Goal is less than 140/90 Continue losartan Encouraged to monitor weight and B/P at home. Assessment & Plan (02/08/2024 5:52 AM CDT): This is a chronic condition which is at goal. Goal is less than 140/90 Personally reviewed labs. Continue losartan Encouraged to monitor weight and B/P at home Encouraged to take medications as prescribed. Assessment & Plan (01/09/2023 9:40 PM CDT): Bp is stable/in acceptable range for any co-morbidities. Encouraged to limit sodium intake and exercise for weight control. Continue losartan 100 hydrochlorothiazide amlodipine. Assessment & Plan (10/28/2022 3:15 PM PIPING SUPERVISOR): This is a chronic condition which is at goal of less than 140/90 Personally reviewed labs. Continue losartan, HCTZ, amlodipine Encouraged to void caffeine and excessive alcohol consumption as this will elevate B/P Encouraged to monitor weight and B/P at home Explained correct way to take blood pressure. - After 5 minutes of sitting calmly with arm supported. Encouraged to take medications as prescribed. Assessment & Plan (12/20/2021 8:23 AM CDT): Bp is stable/in acceptable range for any co-morbidities. Encouraged to limit sodium intake and exercise for weight control. Improved with the addition of amlodipine 5 mg. Continue losartan 100 mg. Encouraged to monitor readings at home and if continue elevate above 140/90 he is to contact the office. Assessment & Plan (11/23/2021 8:12 AM PIPING SUPERVISOR): Bp is stable/in acceptable range for any co-morbidities. Encouraged to limit sodium intake and exercise for weight control. Assessment & Plan (08/28/2021 12:52 PM PIPING SUPERVISOR): Bp is stable/in acceptable range for any co-morbidities. Encouraged to limit sodium intake and exercise for weight control. Continue losartan. Reviewed the importance of taking medication as prescribed. He has missed about a week of his medications which is probably why his blood pressure is so high. Assessment & Plan (06/22/2021 10:22 AM CDT): Bp is stable/in acceptable range for any co-morbidities. Encouraged to limit sodium intake and exercise for weight control. Stressed importance of continued A1c control to minimize the residential effects of diabetes. Bring accuchecks to office when instructed to do so. Check A1c about every 3-6 months. Take medication as prescribed. Get annual eye exam. Encouraged MARY/Statin if able to tolerate. Encouraged weight control and encouraged diabetic diet and exercise. Continue losartan 100 and metformin 1gm bid Assessment & Plan (02/26/2021 12:02 AM CDT): Bp is stable/in acceptable range for any co-morbidities. Encouraged to limit sodium intake and exercise for weight control. Continue per cardio Assessment & Plan (11/24/2020 11:03 AM PIPING SUPERVISOR): Salt restriction. Losartan. Blood pressure 120/80. Assessment & Plan (11/18/2020 1:48 PM PIPING SUPERVISOR): Bp is still elevated acceptable range for any co-morbidities. Encouraged to limit sodium intake and exercise for weight control. Increase the losartan to 100mg daily. Will reassess in 3 months. Has appt with Cardio who will also check his bp. Assessment & Plan (10/25/2020 6:22 PM PIPING SUPERVISOR): This is a significant, separately identifiable problem that was evaluated and managed on the same day as the wellness exam Bp is stable/in acceptable range for any co-morbidities. Encouraged to limit sodium intake and exercise for weight control. Restart losartan 50mg. Will probably have to titrate up. F.u in 2 weeks to reassess with labs prior to visit. Assessment & Plan (02/27/2019 8:05 PM CDT): This is a significant, separately identifiable problem that was evaluated and managed on the same day as the wellness exam Not controlled. Encouraged to limit sodium intake and exercise for weight control. Losartan 100mg. Followup in 1-2 weeks. Will be cautious adding BB due to respiratory issues. May consider Amlodipine next if needed. Assessment & Plan (02/01/2019 12:55 PM CDT): Bp is stable/in acceptable range for any co-morbidities. Encouraged to limit sodium intake and exercise for weight control. He is currently not on any medications and bp is close to normal. Will allow cardio to start up meds. Will add at least Lisinopril 2.5mg at next visit for renal protection with DM COPD exacerbation 01/30/2019 Assessment & Plan (11/25/2023 10:13 PM PIPING SUPERVISOR): Patient has quit smoking. Continue per pulmonology Dr. Romero. Continue Singulair albuterol and Trelegy Assessment & Plan (01/09/2023 9:40 PM CDT): Continue per pulmonology. 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 Romero. Stressed the importance of regular care Assessment & Plan (11/25/2021 10:02 PM PIPING SUPERVISOR): Significant disease. Continue per Dr. Romero. Assessment & Plan (08/28/2021 12:53 PM PIPING SUPERVISOR): Stop smoking. Continue per Pulmonary. Stressed importance of setting follow-up plan keeping them. Assessment & Plan (02/26/2021 12:01 AM CDT): Stop smoking. Continue per pulmonary Assessment & Plan (11/24/2020 11:02 AM PIPING SUPERVISOR): Was told to stop smoking. He has an appointment to see Dr. Romero in pulmonary consultation. Assessment & Plan (11/18/2020 1:47 PM PIPING SUPERVISOR): Restarted inhalers and singulair. Encouraged to make followup appt with Dr. Romero Stop cigars. Assessment & Plan (10/25/2020 5:18 PM PIPING SUPERVISOR): This is a significant, separately identifiable problem that was evaluated and managed on the same day as the wellness exam Restart Symbicort and Albuterol. Encouraged to followup with Pulmonary to re-establish care and complete the ordered tests. Assessment & Plan (02/27/2019 8:06 PM CDT): COPD not well controlled. Continue Symbicort and Albuterol and Sinculair. Await recommendations from Pulmonary Assessment & Plan (02/01/2019 1:17 PM CDT): Untreated. Restart Symbicort and Singulair. proair sent. Pt to followup with Pulmonary for his persistent sxs. He will set his own appt as he is an established patient Moderate episode of recurrent major depressive d isorder 01/30/2019 Assessment & Plan (01/20/2025 5:23 PM CDT): Reports increased stress due to recent hospitalization and worsening shortness of breath. Has trouble staying asleep at night, but this is likely due to long- standing pulmonary issues that are poorly controlled currently. He needs to start using his inhalers regularly for better sleep hygiene. He is already taking duloxetine, bupropion and buspirone with relief in anxiety. We can increase dose of duloxetine to see if there is any improvement. - Take 60 mg of your duloxetine two times a day Assessment & Plan (09/08/2024 10:24 PM PIPING SUPERVISOR): Depression symptoms have been stable with Cymbalta 60 and Wellbutrin XL 300. Refills sent to pharmacy Assessment & Plan (07/21/2024 4:09 PM CDT): Continue Cymbalta and Wellbutrin Assessment & Plan (11/25/2023 10:13 PM PIPING SUPERVISOR): Depression symptoms are stable with Cymbalta 60 and Wellbutrin XL 150 Assessment & Plan (01/09/2023 9:41 PM CDT): This is a significant, separately identifiable problem that was evaluated and managed on the same day as the wellness exam Tolerating Cymbalta is 60 well. States he still having breakthrough depression anxiety symptoms. Just adopted grandson and will have full-time care. Has done well on Wellbutrin in the past with smoking cessation and felt like it did help his mood. Restart Wellbutrin XL 150 q.a.m.. Reviewed risks benefits alternatives side effects and proper use. No history of seizures. Follow-up in 6-8 weeks to reassess Assessment & Plan (05/01/2022 11:25 PM CDT): Continue Cymbalta 60 Assessment & Plan (11/25/2021 10:03 PM PIPING SUPERVISOR): Continue Cymbalta Assessment & Plan (06/22/2021 10:23 AM CDT): Continue cymbalta Assessment & Plan (02/26/2021 12:02 AM CDT): Continue cymbalta Assessment & Plan (11/18/2020 1:50 PM PIPING SUPERVISOR): Increase Cymbalta to 60mg daily. Assessment & Plan (10/25/2020 6:31 PM PIPING SUPERVISOR): This is a significant, separately identifiable problem that was evaluated and managed on the same day as the wellness exam Restart Cymblata 30mg one dialy. Reviewed risks, benefit, alternatives, side effects and proper use. Assessment & Plan (02/27/2019 8:02 PM CDT): This is a significant, separately identifiable problem that was evaluated and managed on the same day as the wellness exam Not fully controlled. Increase the Cymbalta to 60mg. Assessment & Plan (02/01/2019 1:31 PM CDT): Significant depression sxs. Can be secondary to alcohol abuse. Start Cymbalta. Reviewed risks, benefit, alternatives, side effects and proper use. Seasonal allergies 01/30/2019 Assessment & Plan (10/25/2020 6:31 PM PIPING SUPERVISOR): Managed currently without medicatoin Assessment & Plan (02/27/2019 8:02 PM CDT): Continue current regimen Assessment & Plan (02/01/2019 1:08 PM CDT): Restart singulair/otc antihistamines. Gastroesophageal reflux disease without esophagi tis 01/30/2019 Assessment & Plan (08/28/2021 12:53 PM PIPING SUPERVISOR): Continue PPI Assessment & Plan (10/25/2020 6:23 PM PIPING SUPERVISOR): Stable without medication. Sxs are better with stopping alcohol Assessment & Plan (02/27/2019 8:04 PM CDT): Managed without medication. Decrease triggers including tobacco and alcohol. Assessment & Plan (02/01/2019 12:56 PM CDT): Not complaining of sxs. Today. Recommend to stop alcohol as can be a trigger. Recovering alcoholic 01/30/2019 Overview (11/18/2020): Last drink summer 2019 Assessment & Plan (11/25/2023 10:13 PM PIPING SUPERVISOR): Patient states he has not been drinking for quite a few years. He is adopted his grandson and is very motivated to remain off alcohol Assessment & Plan (01/09/2023 9:42 PM CDT): Patient states he continues to refrain from alcohol use Assessment & Plan (11/25/2021 10:04 PM PIPING SUPERVISOR): Patient had gone during free for quite a while but states he has returned to drinking some alcohol at times. States it is difficult to not drink when friends come over. Strongly encouraged him to have full cessation and to join AA or other support group so that he can remain off the alcohol. Assessment & Plan (08/28/2021 12:53 PM PIPING SUPERVISOR): Continue cessation. Assessment & Plan (06/22/2021 10:23 AM CDT): Continue full alcohol cessation Assessment & Plan (02/26/2021 12:00 AM CDT): Continue abstienence. Assessment & Plan (11/24/2020 11:05 AM PIPING SUPERVISOR): Last during summer 2019. Assessment & Plan (11/18/2020 1:46 PM PIPING SUPERVISOR): Still no alcohol use. Assessment & Plan (10/25/2020 5:07 PM PIPING SUPERVISOR): Encouraged to consider abstinence. Discussed AA but he feels like he has enough support. Assessment & Plan (02/27/2019 7:56 PM CDT): Still drinking. Pt with no desire to stop. Offered assistance when he is ready. Assessment & Plan (02/01/2019 12:46 PM CDT): Still drinking at least 3-4 days a week but per more. Encouraged cessation as he is an alcoholic but he is not interested in stopping. Diabetic peripheral neuropat hy associated with type 2 diabetes mellitus 01/30/2019 Assessment & Plan (07/08/2024 9:38 AM CDT): This is a chronic condition which is improving but not at goal . Goal is less than 7-8%. Personally reviewed most recent A1c - labs reviewed from Care everywhere Contains abnormal data HEMOGLOBIN A1C Specimen: Blood Component Ref Range & Units 9 d ago HEMOGLOBIN A1C <=5.6 % 8.7 High EST. AVG GLUCOSE, A1C mg/dL [facility] Lab Results Component Value Date HGBA1C 10.7 02/07/2024 Personally reviewed POC blood sugar- at goal of 80-180 Lab Results Component Value Date POCGLU 133 07/08/2024 Medication- Continues Metformin 1000mg twice daily, continue Jardiance 10mg daily, increase Soliqua 34 units daily at dinner Monitor blood sugar continuously with Yvrose cgm. Monofilament foot exam completed. Protective senses not intact Continue Gabapentin eGFR- greater than 90 Kidney function-normal Urine microalbumin/creatinine ratio - at goal. Goal is <30 Continue losartan Assessment & Plan (02/08/2024 5:51 AM CDT): This is a chronic condition which is not at goal . Goal is less than 7%. Personally reviewed most recent A1c - Lab Results Component Value Date HGBA1C 10.7 02/07/2024 Personally reviewed POC blood sugar- not at goal of 80-180 Lab Results Component Value Date POCGLU 292 02/07/2024 Medication- restart Metformin 1000mg twice daily, Jardiance 10mg daily, Soliqua 30 units daily at dinner and call blood sugars in 4 days for further adjustments Monitor blood sugar 3 times a day or Continuously with cgm. Encouraged annual eye exam. Monofilament foot exam completed. Loss of protective senses Treated with Gabapentin Personally reviewed CMP eGFR- >90 Kidney function-normal Urine microalbumin/creatinine ratio - at goal. Goal is <30 Continue losartan Assessment & Plan (11/25/2023 10:14 PM PIPING SUPERVISOR): Stressed importance of continued A1c control to minimize the continuous churn buttermaker effects of diabetes. Bring accuchecks to office when instructed to do so. Check A1c about every 3-6 months. Take medication as prescribed. Get annual eye exam. Encouraged MARY/Statin if able to tolerate. Encouraged weight control and encouraged diabetic diet and exercise. Was seen nurse practitioner Chelsie Boyle. Has been out of insulin since early 2022. Has been taking metformin 100 b.i.d. and Jardiance 25 daily. Strongly recommend to reestablish with Chelsie Boyle so we can get his diabetes tightly controlled to avoid long-term sequela Assessment & Plan (01/09/2023 9:43 PM CDT): This is a significant, separately identifiable problem that was evaluated and managed on the same day as the wellness exam Stressed importance of continued A1c control to minimize the continuous churn buttermaker effects of diabetes. Bring accuchecks to office when instructed to do so. Check A1c about every [id number]|2025-02-16 14:38:00|2025-02-16 14:37:00|XMS_ITS|BKG DALORON|External Medical Summaries|[id number]|" Referral Summary Created on: February 16, 2025 Daniele Vu Lavern : 1960 Sex: Male Author Organization [facility] [place] [address] [facility] Address [facility] [place] [address] Care Team Providers Care Design Printing Machine Setter Name Role Phone Sera Howard Primary Care Provider [phone] Rikki Romero MD Unavailable [phone] Sultan Maria Luisa Teran MD Unavailable [phone] Cary Pena MD Unavailable [phone] Rigoberto Rodriguez MD Unavailable Encounters Date Type Department Care Team Description 01/31/2025 Results Follow-Up [place] [id number] Sera Howard PA Vitamin B12, Iron profile w/ IBC, Ferritin, Additional followed-up results: 2 01/29/2025 Results Follow-Up [facility] [place] [address] Chelsie Boyle, MARIELA Albumin Creatinine Ratio, Urine 01/29/2025 9:00 AM CDT Lab [facility] at [place] [id number] Type 2 diabetes mellitus with diabetic polyneuropathy, without long-term current use of insulin (HCC) 01/29/2025 8:00 AM CDT Office Visit [facility] at [address] [phone] Chelsie Boyle, MARIELA Type 2 diabetes mellitus with hyperglycemia, with long-term current use of insulin (HCC) (Primary Dx); Diabetic peripheral neuropathy associated with type 2 diabetes mellitus (HCC); Mixed diabetic hyperlipidemia associated with type 2 diabetes mellitus (HCC); Freestyle Yvrose 3 continuous glucose monitoring device; Essential (primary) hypertension; Class 1 obesity due to excess calories with serious comorbidity and body mass index (BMI) of 32.0 to 32.9 in adult; Type 2 diabetes mellitus with diabetic polyneuropathy, without long-term current use of insulin (HCC) 01/28/2025 Orders Only [address] [phone] Kumar Whelan MD 01/27/[address] [place] [phone] Sera Howard PA 01/22/2025 8:50 AM CDT Lab [facility] Lab [address] [place] [address] Anemia, unspecified type 01/22/2025 10:00 AM CDT Office Visit [facility] Surgery [address] [facility] Medical Office [address], [address] [place] [address] Ila Irving NP Follow-up examination following surgery (Primary Dx) 01/20/2025 1:00 PM CDT Office Visit [facility] Family Medicine [address] [facility] [address] [place] [address] Sera Howard PA Chronic obstructive pulmonary disease, unspecified COPD type (HCC) (Primary Dx); Anemia, unspecified type; Seasonal allergic rhinitis due to pollen; Type 2 diabetes mellitus with hyperglycemia, with long-term current use of insulin (HCC); Moderate episode of recurrent major depressive disorder (HCC); Coronary artery disease involving te-moak coronary artery of te-moak heart without angina pectoris; BMI 32.0-32.9,adult; Obesity (BMI 30.0-34.9) 01/17/2025 4:26 PM CDT - 01/17/2025 5:52 PM CDT Emergency [facility] [address] [facility] [place] [address] Clarissa Huber MD Anemia, unspecified type (Primary Dx); Dyspnea, unspecified type Discharge Disposition: Discharge to home or self care 01/17/2025 12:00 PM CDT Office Visit [facility] Pulmonology [address] [facility] [address] [place] [address] Rikki Romero MD Moderate persistent asthma without complication (Primary Dx); Chronic obstructive pulmonary disease, unspecified COPD type (HCC); Seasonal allergic rhinitis due to pollen; Nicotine dependence, cigarettes, in remission; Abnormal CT of the chest; Dyspnea on exertion; Shortness of breath 01/17/2025 7:59 AM CDT - 01/17/2025 11:59 PM CDT Hospital Encounter [facility] [address] [place] [address] Chest x-ray abnormality Discharge Disposition: Discharge to home or self care 01/15/2025 Telephone [facility] Surgery [address] [facility] 8[address] [place] [address] [place] [address] Rigoberto Rodriguez MD 01/15/2025 Orders Only [facility] Surgery [address] [place] [address] [address] [place] [address] Ila Irving, SHIPPING AND RECEIVING ASSISTANT Acute postoperative pain (Primary Dx) 01/15/2025 Telephone [facility] Surgery [address] [place] [address] [address] [place] [address] Ila Irving, SHIPPING AND RECEIVING ASSISTANT Test Results 01/13/2025 Results Follow-Up [facility] Medicine [address] [place] [address] [address] [place] [address] Sera Howard PA Basic metabolic panel, CBC without differential, eGFR 01/13/2025 9:15 AM CDT - 01/13/2025 11:59 PM CDT Hospital Encounter [facility] Diagnostic Imaging [facility] [place] [address] Pleural effusion on left Discharge Disposition: Discharge to home or self care 01/13/2025 9:00 AM CDT Lab [facility] Lab [address] [place] [address] Essential (primary) hypertension; Hyponatremia; Hypocalcemia; Type 2 diabetes mellitus with diabetic polyneuropathy, without long-term current use of insulin (HCC); Normocytic hypochromic anemia 01/07/2025 REX IP Outreach [facility] Accountable Care Organization [address] [place] [id number] Ching Chun LPN 01/07/[address] [place] [address] Sera Howard PA Medical Question/Miscellane ous 01/06/2025 Orders Only [facility] Surgery [address] [facility] 8[address] [place] [address] [place] [address] Ila Irving, SHIPPING AND RECEIVING ASSISTANT Pleural effusion on left (Primary Dx) 12/23/2024 8:31 AM CDT - 01/06/2025 3:23 PM CDT Hospital Encounter [address] [address] Emiliano Osborne DO Ofoma, Uchenna Raphael, MD Shaukat, Bushra, MD Yaganti, Srinivasarao C., MD Diabetic ketoacidosis without coma associated with type 2 diabetes mellitus (HCC) (Primary Dx); Pneumonia of left lower lobe due to infectious organism; Pleural effusion on left; Empyema of lung (HCC); Multifocal pneumonia; COPD exacerbation (HCC); Moderate persistent asthma with acute exacerbation; Type 2 diabetes mellitus with hyperglycemia, with long-term current use of insulin (HCC); Diabetic peripheral neuropathy associated with type 2 diabetes mellitus (HCC); Paroxysmal atrial fibrillation (HCC); Essential (primary) hypertension; Hypercholesteremia; Hyponatremia; Hypocalcemia; Normocytic hypochromic anemia; Acute postoperative pain; Type 2 diabetes mellitus with diabetic polyneuropathy, without long-term current use of insulin (HCC); Hypoglycemia due to insulin Discharge Disposition: Discharge to home, home health skilled care 01/01/2025 12:45 PM CDT - 01/01/2025 3:00 PM CDT Surgery [address] [address] Rigoberto Rodriguez MD VIDEO-ASSISTED THORACIC SURGERY WITH DECORTICATION 01/01/2025 12:48 PM CDT Anesthesia Event [address] [address] Jocelin Melgar MD Sauerwein, Kimberly K., CRNA 12/18/2024 Telephone [facility] Pulmonology [address] [place] [address] [place] [phone] Vesta Cruz, GABO 12/10/2024 4:00 PM CDT Office Visit [facility] Pulmonology [address] [place] [address] [place] [phone] Rikki Romero MD Moderate persistent asthma without complication; Chronic obstructive pulmonary disease, unspecified COPD type (HCC); Seasonal allergic rhinitis due to pollen 12/08/2024 Results Follow-Up [address] [place] [address] Sera Howard PA Comprehensive metabolic panel, Hemoglobin A1c, Albumin Creatinine Ratio, Urine, Additional followed-up results: 3 11/21/2024 Orders Only [address] [address] Sera Howard PA Hypertension associated with diabetes (HCC) (Primary Dx); Type 2 diabetes mellitus with hyperlipidemia (HCC); Prostate cancer screening; Annual physical exam; Other fatigue 11/20/[address] [address] Sera Howard PA Reminder to get labs/urine done prior to Nov visit from Last 3 Months Allergies No known active allergies Medications empagliflozin (Jardiance) 25 mg tabletIndication s:type 2 diabetes mellitus Take 1 tablet (25 mg total) by mouth daily E11.65 90 tablet 4 02/07/20 24 Active acetaminophen (TYLENOL) 325 mg tablet Take 2 tablets (650 mg total) by mouth every 8 (eight) hours as needed 07/02/20 24 Active OneTouch Delica Plus Lancet 33 gauge misc USE 1 LANCETS TO CHECK GLUCOSE TWICE DAILY BEFORE BREAKFAST AND DINNER 05/14/20 24 Active pen needle, diabetic 32 gauge x 5/32 needleIndication s:Type 2 diabetes mellitus with diabetic polyneuropathy, without long-term current use of insulin (HCC) Use to inject insulin up to 4times/day. E11.65 100 each 3 07/08/20 24 Active lancets misc 1 each by other route daily Use to monitor blood sugar daily. E11.65 100 each 3 07/08/20 24 Active blood-glucose meter kit Use daily as directed for monitoring of blood sugar for diabetes. E11.65 1 kit 1 07/08/20 24 Active blood glucose diagnostic (glucose blood) strip Check blood sugar daily or as directed. E11.65 100 each 4 07/08/20 24 Active buPROPion XL (WELLBUTRIN XL) 300 mg 24 hr tablet Take 1 tablet (300 mg total) by mouth every morning 90 tablet 1 08/27/20 24 Active Brilinta 90 mg tablet Take 1 tablet (90 mg total) by mouth 2 (two) times a day Active melatonin tablet Take 1 tablet (3 mg total) by mouth nightly as needed for sleep Active UNABLE TO FIND Take 1 each by mouth nightly as needed (sleep) Med Name: Jayden PM Active apixaban (Eliquis) 5 mg tablet Take 1 tablet by mouth twice daily 200 tablet 1 11/15/19 25 Active losartan (COZAAR) 100 mg tablet Take 1 tablet by mouth once daily 90 tablet 11/15/19 25 Active nitroglycerin (NITROSTAT) 0.4 mg SL tablet DISSOLVE ONE TABLET UNDER THE TONGUE EVERY 5 MINUTES NEEDED FOR CHEST PAIN. DO NOT EXCEED A TOTAL OF 3 DOSES IN 15 MINUTES 12/05/19 25 Active albuterol 2.5 mg /3 mL (0.083 %) nebulizer solutionIndicati ons:Moderate persistent asthma without complication,Chr onic obstructive pulmonary disease, unspecified COPD type (HCC),Seasonal allergic rhinitis due to pollen Take 3 mL (2.5 mg total) by nebulization 3 (three) times a day For treatment of COPD, J44.9 270 mL 3 12/11/19 25 Active tiotropium bromide (Spiriva Respimat) 2.5 mcg/actuation inhaler Inhale 2 puffs daily 1 each 3 12/11/19 25 Active fluticasone propion-salmeter oL (Advair Diskus) 500-50 mcg/dose diskus inhalerIndicatio ns:Moderate persistent asthma without complication Inhale 1 puff 2 (two) times a day Rinse mouth with water after use. Do not swallow. 3 each 12/11/19 25 025 Active dupilumab (Dupixent Pen) pen injector Inject 2 mL (300 mg total) under the skin every 14 (fourteen) days 2 mL 12/19/19 25 Active benzonatate (TESSALON) 200 mg capsuleIndicatio ns:Cough Take 1 capsule (200 mg total) by mouth 3 (three) times a day as needed for cough 45 capsule 1 01/07/20 25 Active busPIRone (BUSPAR) 15 mg tabletIndication s:Generalized Anxiety Disorder Take 1 tablet (15 mg total) by mouth 3 (three) times a day 90 tablet 3 01/07/20 25 025 Active polyethylene glycol (MIRALAX) 17 gram/dose bulk powderIndication s:constipation Take 17 g by mouth daily as needed (Constipation) 01/07/20 25 Active senna-docusate (PERICOLACE) 8.6-50 mgIndications:co nstipation Take 1 tablet by mouth 2 (two) times a day as needed for constipation 01/07/20 25 Active gabapentin (NEURONTIN) 300 mg capsuleIndicatio ns:Postoperative Acute Pain Take 1 capsule (300 mg total) by mouth 3 (three) times a day 90 capsule 01/16/20 25 Active albuterol HFA (PROVENTIL HFA,VENTOLIN HFA,PROAIR HFA) 90 mcg/actuation inhalerIndicatio ns:Chronic obstructive pulmonary disease, unspecified COPD type (HCC),Seasonal allergic rhinitis due to pollen Inhale 2 puffs every 6 (six) hours as needed for wheezing or shortness of breath 8.5 g 2 01/21/[address] (CYMBALTA) 60 mg capsuleIndicatio ns:Moderate episode of recurrent major depressive disorder (HCC) Take 1 capsule (60 mg total) by mouth 2 (two) times a day 180 capsule 1 01/21/20 25 Active rosuvastatin (CRESTOR) 40 mg tabletIndication s:Hypercholester emia Take 1 tablet (40 mg total) by mouth daily 90 tablet 01/28/20 25 Active isosorbide mononitrate ER (IMDUR) 30 mg 24 hr tablet Take 1 tablet (30 mg total) by mouth daily Active Soliqua 100/33 100 unit-33 mcg/mL insulin penIndications:t ype 2 diabetes mellitus Inject 50 Units under the skin daily Take 50 units daily. E11.65 45 mL 4 01/30/20 25 Active acetone, urine, test strip Test first AM urine and as directed 100 strip 11 01/30/20 25 Active insulin lispro (HumaLOG, ADMELOG) 100 unit/mL pen for injectionIndicat ions:type 2 diabetes mellitus Use lispro insulin only for sliding scale before meals. No sliding scale at bedtime. Do not take any insulin if blood sugar less than 200, - take 5 units between 201-250, take 7 units between 251-300, take 9 units between 301-350, take 11 units between 351-400, take 14 units between 401-450. Maximum 42 units daily as needed e11.65 15 mL 2 01/30/20 Active aspirin 81 mg enteric coated tablet Take 1 tablet (81 mg total) by mouth nightly Discontinu ed(Therapy completed) rosuvastatin (CRESTOR) 40 mg tablet Take 1 tablet by mouth once daily 90 tablet 10/25/19 Discontinu ed(Reorder ) albuterol HFA (PROVENTIL HFA,VENTOLIN HFA,PROAIR HFA) 90 mcg/actuation inhalerIndicatio ns:Moderate persistent asthma without complication,Chr onic obstructive pulmonary disease, unspecified COPD type (HCC),Seasonal allergic rhinitis due to pollen Inhale 2 puffs every 6 (six) hours as needed for wheezing or shortness of breath 8.5 g 11 12/11/19 Discontinu ed(Reorder ) montelukast (SINGULAIR) 10 mg tabletIndication s:Moderate persistent asthma without complication,Chr onic obstructive pulmonary disease, unspecified COPD type (HCC),Seasonal allergic rhinitis due to pollen Take 1 tablet (10 mg total) by mouth nightly 90 tablet 11 12/11/19 Discontinu ed(Therapy completed) DULoxetine DR (CYMBALTA) 60 mg capsuleIndicatio ns:Moderate episode of recurrent major depressive disorder (HCC) Take 1 capsule by mouth once daily 90 capsule 12/28/19 Discontinu ed(Reorder ) Soliqua 100/33 100 unit-33 mcg/mL insulin penIndications:t ype 2 diabetes mellitus Take 25 units twice a day 9:00 a.m. and 9:00 p.m. 30 mL 2 01/07/20 25 Discontinu ed(Reorder ) oxyCODONE (ROXICODONE) 15 mg immediate release tabletIndication s:Pain,Left lateral chest wall pain at the site of chest tube Take 1 tablet (15 mg total) by mouth every 8 (eight) hours as needed for pain 20 tablet 01/07/20 25 025 Discontinu ed(Therapy completed) insulin lispro (HumaLOG, ADMELOG) 100 unit/mL pen for injectionIndicat ions:type 2 diabetes mellitus Use lispro insulin only for sliding scale before meals. No sliding scale at bedtime. Do not take any insulin if blood sugar less than 140, take 2 units between 141-160, take 3 units between 161-200, take 5 units between 201-250, take 7 units between 251-300, take 9 units between 301-350, take 11 units between 351-400, take 14 units between 401-450. Maximum 42 units daily as needed 15 mL 2 01/07/20 25 025 Discontinu ed(Reorder ) traMADoL (ULTRAM) 50 mg tabletIndication s:Acute post-operative pain Take 1 tablet (50 mg total) by mouth every 6 (six) hours as needed for pain (For severe pain not relieved by over the counter medications) for up to 7 days 24 tablet 01/16/20 25 025 Discontinu ed(Therapy completed) levoFLOXacin (LEVAQUIN) 500 mg tabletIndication s:Respiratory tract infection Take 1 tablet (500 mg total) by mouth daily for 7 days 7 tablet 01/18/20 25 025 Active Problems Patient Care Coordination No te Formatting of this note migh t be different from the original. CAD for BIC Problem Noted Date Diagnosed Date Obesity (BMI 30.0-34.9) 02/02/2025 Assessment & Plan (02/02/2025 3:49 PM CDT): Discussed the patient's BMI. The BMI is above average. BMI management plan is completed. BMI Follow-up includes: nutrition counseling, exercise counseling and education provided. Anemia 01/20/2025 Assessment & Plan (01/20/2025 5:11 PM CDT): Hgb has been around 9-10 (baseline is 14) since June of 2024. Colonoscopy in June revealed 2 polyps which were removed, diverticulosis and non-bleeding internal hemorrhoids. Patient denies melena, bloody stools, easy bleeding/bruising or hematuria. Blood loss is less likely to be the cause of his anemia. Will obtain iron panel, CMP and B12 level to evaluate other etiologies. Chronic obstructive pulmonary disease 01/20/2025 Assessment & Plan (01/20/2025 5:27 PM CDT): Shortness of breath is worsening recently. PE ruled out. Patient admits to not having filled his inhalers from Dr. Romero after discharge from hospital. He is currently trying to get Dupixent approved by patient's insurance for his fibrinous pleuritis diagnosis. Has PFTs scheduled next month and follow up with pulm in March. - Keep your scheduled appointments with Dr. Romero - Use your inhalers as prescribed by pulmonology - Wixela is your maintenance inhaler that you use daily and albuterol is your rescue inhaler to use only as needed for extra improvement in breathing - You do not need to continue using your nebulizer since you have an albuterol inhaler - Continue using your incentive spirometer - Continue taking Mucinex or and OTC allergy pill to help with mucus production Seasonal allergic rhinitis due to pollen 025 Assessment & Plan (01/20/2025 5:20 PM CDT): Patient endorses sputum production that he has been taking Mucinex for with some improvement. Seasonal rhinitis is likely contributing to his chronic bronchitis/COPD and sputum production. May continue taking Mucinex as needed to thin out the mucus. Avoid allergy triggers like pollen, pet dander, lint and dust Use a dehumidifier in the home Nasal corticosteroids (Flonase) work best when used daily; may take up to 2 weeks to reach full effect Use OTC antihistamines like Claritin or Krissy Do not use Afrin for longer than 3 days for congestion relief Hypoglycemia due to insulin 01/06/2025 Acute postoperative pain 01/02/2025 Moderate persistent asthma with acute exacerbati on 01/01/2025 Type 2 diabetes mellitus wit h hyperglycemia, with long-term current use of insulin 01/01/2025 Assessment & Plan (01/20/2025 5:18 PM CDT): Keep your appointment with Dr. Boyle. Continue taking your Soliqua twice daily and using your Humalog on a sliding scale until you see endocrinology. - Will have to get your A1c checked every 3-6 months - Reasonable A1c of <7 - Always take your insulin, especially when you are sick - Check the bottoms of your feet - See your eye doctor yearly - Sweating, shaking, hunger and anxiety can indicate hypoglycemia - Weight management - Monitoring carb intake Mixed diabetic hyperlipidemi a associated with type 2 diabetes mellitus 01/01/2025 Hyponatremia 01/01/2025 Hypocalcemia 01/01/2025 Normocytic hypochromic anemia 01/01/2025 Diabetic ketoacidosis withou t coma associated with type 2 diabetes mellitus 12/23/2024 Multifocal pneumonia 12/23/2024 Pleural effusion on left 12/23/2024 Empyema of lung 12/23/2024 History of cardioembolic cerebrovascular acciden t (CVA) 07/21/2024 Overview (07/21/2024): 07/2024: CT showed area in the right frontoparietal lobe suggestive of subacute infarct. Assessment & Plan (07/21/2024 4:09 PM CDT): 07/2024: CT showed area in the right frontoparietal lobe suggestive of subacute infarct. Continue with aspirin Eliquis and statin. Continue tight control of blood pressure. Follow-up with cardiology and vascular surgery. Continue tight control of his diabetes with Chelsie Boyle nurse practitioner. Will plan evaluation by speech Physical therapy and Occupational therapy outpatient at [facility]. Referral given. Await their recommendation Freestyle Yvrose 3 continuous glucose monitoring device 07/08/2024 Assessment & Plan (01/29/2025 8:26 AM CDT): Continuous glucose monitor (cgm) applied from 01/16/2025 to 01/29/2025 This device was placed for monitor and treatment of blood sugar. Interpretation of data- 87% time in range. Average glucose 141. 13% hyperglycemia. 0% hypoglycemia. GMI at 6.7% Assessment & Plan (07/08/2024 9:42 AM CDT): Continuous glucose monitor (cgm) applied from 06/25/2024 to 07/08/2024 This device was placed for monitor and treatment of blood sugar. Interpretation of data- 78% time in range. Average glucose 153. 22% hyperglycemia. 0% hypoglycemia. Increase Soliqua to 34 units daily. Encouraged to call for hypoglycemia Prostate cancer screening 01/09/2023 Assessment & Plan (01/09/2023 9:45 PM CDT): Check PSA Chronic pain syndrome 01/09/2023 Coronary artery disease 04/15/2022 Assessment & Plan (01/20/2025 5:31 PM CDT): Patient has not seen cardiology for follow-up on his possible PFO, afib and carotid stenosis. 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 He says he will make an appointment with cards once his breathing has resolved. Fatigue 06/22/2021 Assessment & Plan (01/09/2023 9:44 PM CDT): Probably multifactorial. Check labs and followup to re-evaluate Assessment & Plan (11/25/2021 10:04 PM PIPING SUPERVISOR): Probably multifactorial. Check labs and followup to re-evaluate Assessment & Plan (06/22/2021 10:25 AM CDT): Probably multifactorial. Check labs and followup to re-evaluate Moderate persistent asthma without complication 08/23/2019 Assessment & Plan (11/25/2023 10:14 PM PIPING SUPERVISOR): Continue per pulmonology. See COPD Assessment & Plan (08/28/2021 12:53 PM PIPING SUPERVISOR): Stop smoking. Continue per Pulmonary Assessment & Plan (06/22/2021 10:24 AM CDT): Continue per Pulmonary He has stopped smoking Cigar smoker 02/01/2019 Overview (02/01/2019): Assessment & Plan (08/28/2021 12:53 PM PIPING SUPERVISOR): Encouraged smoking cessation. Discussed 3 minutes. Reviewed options for assistance with cessation. Reviewed residential sequela associated with smoking. Pt declines assistance at this time but may contact the office at anytime for further help as they desire. Assessment & Plan (02/26/2021 12:02 AM CDT): Stop smoking. Encouraged smoking cessation. Discussed 3 minutes. Reviewed options for assistance with cessation. Reviewed residential sequela associated with smoking. Pt declines assistance at this time but may contact the office at anytime for further help as they desire. Assessment & Plan (11/24/2020 11:01 AM PIPING SUPERVISOR): He was strongly advised to stop smoking. Assessment & Plan (11/18/2020 1:49 PM PIPING SUPERVISOR): Stop smoking. Assessment & Plan (10/25/2020 6:31 PM PIPING SUPERVISOR): Encouraged smoking cessation. Discussed 3 minutes. Reviewed options for assistance with cessation. Reviewed residential sequela associated with smoking. Pt declines assistance at this time but may contact the office at anytime for further help as they desire. Assessment & Plan (02/27/2019 8:01 PM CDT): Encouraged smoking cessation. Discussed approx 3 minutes. No desire to stop Assessment & Plan (02/01/2019 12:59 PM CDT): Encouraged smoking cessation. Discussed approx 3 minutes. Not interested in cessation History of DC (myocardial infarction) 02/01/2019 Overview (02/01/2019): 01/2018 . Assessment & Plan (11/24/2020 11:03 AM PIPING SUPERVISOR): No definite history of an DC. . Though he thinks that he had an DC. Assessment & Plan (02/27/2019 8:01 PM CDT): Will probably return to a BB. Encouraged to start ASA Encouraged statin, start today Reviewed with patient that uncontrolled chronic conditions like his afib, dm and alcoholism and smoking all increase his risk of repeat event. Assessment & Plan (02/01/2019 1:29 PM CDT): Non-compliant to followup. Not currently on BB or MARY or statin. Encouraged to followup with Cardio. PIERRE on CPAP 01/30/2019 Assessment & Plan (07/21/2024 4:10 PM CDT): Encouraged to follow-up with sleep medicine. Does see Dr. Romero pulmonary Assessment & Plan (10/25/2020 5:17 PM PIPING SUPERVISOR): Patient has needed supplies but has not been using. Encouraged to restart and followup with Pulmonary. He will set the appointment Assessment & Plan (02/27/2019 8:07 PM CDT): Encoruaged to use qnight. Has needed supplies Assessment & Plan (02/01/2019 12:50 PM CDT): Encoaurged to use to avoid residential sequela from untreated PIERRE not limited to , progression of afib/heart damage, pulm HTN etc. A-fib 01/30/2019 Assessment & Plan (07/21/2024 4:09 PM CDT): Continue per Cardiology. He is on Eliquis and currently rate seems well control Assessment & Plan (01/09/2023 9:39 PM CDT): History of AFib. Patient has not followed with cardio in a couple of years. Would prefer to see Dr. Dover as he saw him in the hospital last time he was in. Encouraged him to call the office set the appointment so that he can address his cardiovascular concerns. Assessment & Plan (08/28/2021 12:50 PM PIPING SUPERVISOR): Continue per cardio. He still has not called Dr. dalton it is office to reschedule. Strongly encouraged an appointment. Assessment & Plan (02/26/2021 12:02 AM CDT): Continue per Cardio. Assessment & Plan (11/24/2020 11:01 AM PIPING SUPERVISOR): History of paroxysmal atrial fibrillation. Was on Multaq and Xarelto at 1 time. No more. The EKG today shows a normal sinus rhythm, normal QRS morphology. Assessment & Plan (11/18/2020 1:47 PM PIPING SUPERVISOR): Has followup with Cardio Dr. Teran. Will discuss AC with him. Assessment & Plan (10/25/2020 6:21 PM PIPING SUPERVISOR): This is a significant, separately identifiable problem that was evaluated and managed on the same day as the wellness exam Needs to re-establish with Dr. Watts. Encouraged ASA at this point since he has chosen to be off AC. Will encourage revisiting this as he has stopped drinking. Assessment & Plan (02/27/2019 8:05 PM CDT): Pt choosing to not treat or be on AC> Encouraged ASA. Encouraged him to followup with Cardio He verbalizes risks Assessment & Plan (02/01/2019 1:18 PM CDT): Untreated/Non-compliance. He verbalizes risk of stroke from deciding not to be on AC. Encouraged followup with Cardio to discuss treatment/options. He will set his own appt as he is an established patient Non compliance w medication regimen 01/30/2019 Assessment & Plan (06/22/2021 10:21 AM CDT): Stressed importance of taking his medications daily to manage his conditions and prevent continuous churn buttermaker sequela Assessment & Plan (10/25/2020 6:28 PM PIPING SUPERVISOR): Stressed importance of taking medication as instructed. He states he is motivated to care for himself now that he is off alcohol. Assessment & Plan (02/01/2019 1:35 PM CDT): Non-compliance continues which increases the complexity of his multiple co-morbidities. Have discussed with him and his multiple times and again today that his choice to not take medication as directed, followup with appointments as instructed and continue to smoke and drink excessive alcohol he is increasing his chance for continued poor outcomes/sequela not limited to , stroke, another DC, renal failure, debility, etc. He voices full understanding. Essential (primary) hypertension 01/30/2019 Assessment & Plan (07/21/2024 4:10 PM CDT): Bp is stable/in acceptable range for any co-morbidities. Encouraged to limit sodium intake and exercise for weight control. Continue per Cardiology. Continue losartan 100 Assessment & Plan (07/08/2024 9:39 AM CDT): This is a chronic condition which is not at goal upon arrival. At goal after rest. Goal is less than 140/90 Continue losartan Encouraged to monitor weight and B/P at home. Assessment & Plan (02/08/2024 5:52 AM CDT): This is a chronic condition which is at goal. Goal is less than 140/90 Personally reviewed labs. Continue losartan Encouraged to monitor weight and B/P at home Encouraged to take medications as prescribed. Assessment & Plan (01/09/2023 9:40 PM CDT): Bp is stable/in acceptable range for any co-morbidities. Encouraged to limit sodium intake and exercise for weight control. Continue losartan 100 hydrochlorothiazide amlodipine. Assessment & Plan (10/28/2022 3:15 PM PIPING SUPERVISOR): This is a chronic condition which is at goal of less than 140/90 Personally reviewed labs. Continue losartan, HCTZ, amlodipine Encouraged to void caffeine and excessive alcohol consumption as this will elevate B/P Encouraged to monitor weight and B/P at home Explained correct way to take blood pressure. - After 5 minutes of sitting calmly with arm supported. Encouraged to take medications as prescribed. Assessment & Plan (12/20/2021 8:23 AM CDT): Bp is stable/in acceptable range for any co-morbidities. Encouraged to limit sodium intake and exercise for weight control. Improved with the addition of amlodipine 5 mg. Continue losartan 100 mg. Encouraged to monitor readings at home and if continue elevate above 140/90 he is to contact the office. Assessment & Plan (11/23/2021 8:12 AM PIPING SUPERVISOR): Bp is stable/in acceptable range for any co-morbidities. Encouraged to limit sodium intake and exercise for weight control. Assessment & Plan (08/28/2021 12:52 PM PIPING SUPERVISOR): Bp is stable/in acceptable range for any co-morbidities. Encouraged to limit sodium intake and exercise for weight control. Continue losartan. Reviewed the importance of taking medication as prescribed. He has missed about a week of his medications which is probably why his blood pressure is so high. Assessment & Plan (06/22/2021 10:22 AM CDT): Bp is stable/in acceptable range for any co-morbidities. Encouraged to limit sodium intake and exercise for weight control. Stressed importance of continued A1c control to minimize the residential effects of diabetes. Bring accuchecks to office when instructed to do so. Check A1c about every 3-6 months. Take medication as prescribed. Get annual eye exam. Encouraged MARY/Statin if able to tolerate. Encouraged weight control and encouraged diabetic diet and exercise. Continue losartan 100 and metformin 1gm bid Assessment & Plan (02/26/2021 12:02 AM CDT): Bp is stable/in acceptable range for any co-morbidities. Encouraged to limit sodium intake and exercise for weight control. Continue per cardio Assessment & Plan (11/24/2020 11:03 AM PIPING SUPERVISOR): Salt restriction. Losartan. Blood pressure 120/80. Assessment & Plan (11/18/2020 1:48 PM PIPING SUPERVISOR): Bp is still elevated acceptable range for any co-morbidities. Encouraged to limit sodium intake and exercise for weight control. Increase the losartan to 100mg daily. Will reassess in 3 months. Has appt with Cardio who will also check his bp. Assessment & Plan (10/25/2020 6:22 PM PIPING SUPERVISOR): This is a significant, separately identifiable problem that was evaluated and managed on the same day as the wellness exam Bp is stable/in acceptable range for any co-morbidities. Encouraged to limit sodium intake and exercise for weight control. Restart losartan 50mg. Will probably have to titrate up. F.u in 2 weeks to reassess with labs prior to visit. Assessment & Plan (02/27/2019 8:05 PM CDT): This is a significant, separately identifiable problem that was evaluated and managed on the same day as the wellness exam Not controlled. Encouraged to limit sodium intake and exercise for weight control. Losartan 100mg. Followup in 1-2 weeks. Will be cautious adding BB due to respiratory issues. May consider Amlodipine next if needed. Assessment & Plan (02/01/2019 12:55 PM CDT): Bp is stable/in acceptable range for any co-morbidities. Encouraged to limit sodium intake and exercise for weight control. He is currently not on any medications and bp is close to normal. Will allow cardio to start up meds. Will add at least Lisinopril 2.5mg at next visit for renal protection with DM COPD exacerbation 01/30/2019 Assessment & Plan (11/25/2023 10:13 PM PIPING SUPERVISOR): Patient has quit smoking. Continue per pulmonology Dr. Romero. Continue Singulair albuterol and Trelegy Assessment & Plan (01/09/2023 9:40 PM CDT): Continue per pulmonology. 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 Romero. Stressed the importance of regular care Assessment & Plan (11/25/2021 10:02 PM PIPING SUPERVISOR): Significant disease. Continue per Dr. Romero. Assessment & Plan (08/28/2021 12:53 PM PIPING SUPERVISOR): Stop smoking. Continue per Pulmonary. Stressed importance of setting follow-up plan verito
--- OUTSIDE RECORDS SUMMARY | 2025-02-16 14:37 | XMS_ITS | Encounter Summary ---
Author Organization [facility] Address [address] [place] [address] Care Team Providers Care Space Control Agent Name Role Phone Unavailable Primary Care Provider Unavailabl e Reason for Visit * Reason Onset Date Comments Acute CVA, small PFO 07/01/2024 SPOKE cara/ [email or web address] Encounter Details Date Type Department Care Team (Late Contact Info) Description 07/01/2024 Telephone [facility] Admitting [address] [place] [address] [place] [id number] [facility] [address] [place] [address] Acute CVA, small PFO (SPOKE [email or web address]) Social History Tobacco Use Types Packs/Day Years Used Date Smoking Tobacco: Every Day Cigarettes Smokeless Tobacco: Never Alcohol Use Standard Drinks/Week Comments Yes 0 (1 standard drink = 0.6 oz pur e alcohol) occasional Feeling Safe Answer Date Recorded Are you in a relationship wi th someone who hurts you emotionally and/or physically? No 06/29/2024 Food Insecurity Answer Date Recorded Social/Environmental Concerns No concerns Transportation Needs Answer Date Record ed Social/Environmental Concerns No concerns Housing Stability Answer Date Recorded Social/Environmental Concerns No concerns Utility Needs Answer Date Recorded Social/Environmental Concerns No concerns Sex and Gender Information Value Date Recorded Sex Assigned at Not on file Legal Sex Male 11:06 PM CDT Gender Identity Not on file Sexual Orientation Not on file documented as of this encounter Plan of Treatment Upcoming Encounters Date Type Department Care Team (Late st Contact Info) Description 08/07/2025 10:15 AM WASTE RECYCLER Appointment [facility] Heart and Vascular Testing [address] [place] [address] Nikki Spence FNP [address] [place] [address] 08/07/2025 11:00 AM WASTE RECYCLER Office Visit [facility] Heart and Vascular Surgery [id number] [facility] [place] [address] [place] [address] Nikki Spence FNP [address] [place] [address] documented as of this encounter Visit Diagnoses Not on filedocumented in this encounter
--- OUTSIDE RECORDS SUMMARY | 2025-02-16 14:37 | XMS_ITS | Encounter Summary ---
Author Organization [facility] Address 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 e xchange Encounter Details Date Type Department Care Team ([facility] Contact Info) Description 06/29/2024 Telephone [facility] Emergency [address] [place] [address] [place] [id number] [address] Severe stenosis in rt & lf side vertebral artery (Spoke cara/Chelsie @ Dr. Arnold's exchange) Social History Tobacco Use Types Packs/Day Years [...] Encounters Date Type Department Care Team (Late Contact Info) Description 08/07/2025 10:15 AM STEWARD/STEWARDESS Appointment [facility] Heart and Vascular Testing [address] [place] [address] Nikki Spence FNP [address] [facility] [address] [place] [address] 08/07/2025 11:00 AM STEWARD/STEWARDESS Office Visit [facility] Heart and Vascular Surgery [address] [address] [facility] [address] [address] [address] [facility] [address] [place] [address] Nikki Spence FNP [address] [facility] [address] [place] [address] documented as of this encounter Visit Diagnoses Not on filedocumented in this encounter
--- OUTSIDE RECORDS SUMMARY | 2025-02-16 14:37 | XMS_ITS | Clinical Summary ---
Author Organization [facility] Address [address] [place] [address] Phone Care Team Providers Care Shoe Patternmaker Name Role Phone Unavailable Primary Care Provider Unavailabl e Allergies No known active allergies Medications albuterol (PROVENTIL,SHEMAR RENATA) 2.5 mg /3 mL (0.083 %) Solution for Nebulization Take 2.5 mg by inhalation every 8 hours as needed for Shortness of Breath. 04/06/20 23 Active albuterol sulfate HFA 90 mcg/actuation aerosol inhaler Take 2 Puffs by inhalation every 6 hours as needed for Shortness of Breath. 11/02/19 24 Active buPROPion HCL (WELLBUTRIN XL) 150 mg Extended Release 24 hour tablet Take 1 Tablet by mouth daily in the morning. 06/24/20 24 Active empagliflozin (JARDIANCE) 25 mg tablet Take 25 mg by mouth daily. 02/07/20 24 Active insulin glargine-lixisen atide (Soliqua 100/33) 100 unit-33 mcg/mL Insulin Pen Inject 30 Units by subcutaneous injection daily with supper. 02/07/20 24 Active losartan (COZAAR) 100 mg tablet Take 100 mg by mouth daily. 06/24/20 24 Active montelukast (SINGULAIR) 10 mg tablet Take 10 mg by mouth daily at bedtime. 12/30/19 23 Active fluticasone-umec lidinium-vilante rol (Trelegy Ellipta) 200-62.5-25 mcg Disk with Device Take 1 Puff by inhalation daily. 11/02/19 24 Active apixaban (ELIQUIS) 5 mg tablet Take 1 Tablet (5 mg) by mouth 2 times daily. 60 Tablet 4 12:57 PM CDT 07/02/20 Active rosuvastatin (CRESTOR) 40 mg tablet Starting 07/03/24, Take 1 Tablet (40 mg) by mouth daily. 30 Tablet 4 12:57 PM CDT 07/03/20 Active traMADol-acetami nophen (ULTRACET) 37.5-325 mg tabletIndication s:Neck pain Take 1 Tablet by mouth every 6 hours as needed for Severe Pain. 20 Tablet 4 12:57 PM CDT 07/02/20 Active DULoxetine (CYMBALTA) 60 mg Capsule, Delayed Release(E.C.) Take 60 mg by mouth 2 times daily. 07/23/20 Active insulin lispro (HumaLOG,ADMELOG ) 100 unit/mL pen syringe USE LISPRO INSULIN ONLY FOR SLIDING SCALE BEFORE MEALS, NO SLIDING SCALE AT BEDTIME. NO INSULIN IF BLOOD SUGAR IS LESS THAN 200. 201-250: 5 UNITS, 251-300: 7 UNITS, 301-350: 9 UNITS, 351-400: 11 UNITS, 401-450: 14 UNITS. MAX 42 UNITS DAILY NEEDED Active aspirin (ECOTRIN EC) 81 mg Tablet, Delayed Release (E.C.) Take 81 mg by mouth daily at bedtime. Discontinu ed(Patient choice) DULoxetine (CYMBALTA) 60 mg Capsule, Delayed Release(E.C.) Take 1 Capsule by mouth daily. 06/24/20 Discontinu ed(Patient choice) gabapentin (NEURONTIN) 100 mg capsule Take 100 mg by mouth daily. 01/02/20 Discontinu ed(Patient choice) metFORMIN (GLUCOPHAGE) 1,000 mg tablet Take 1,000 mg by mouth 2 times daily. 06/24/20 Discontinu ed(Patient choice) acetaminophen (TYLENOL) 325 mg tablet Take 2 Tablets (650 mg) by mouth every 8 hours as needed for Pain, Mild. 07/02/20 24 Discontinu ed(Patient choice) gabapentin (NEURONTIN) 300 mg capsule Take 300 mg by mouth 2 times daily. 09/10/20 Active Problems Problem Noted Date Diagnosed Date PFO (patent foramen ovale) 07/02/2024 Cerebrovascular accident (CV A) due to embolism of right middle cerebral artery 07/02/2024 Bilateral carotid artery stenosis 07/01/2024 Acute CVA (cerebrovascular accident) 06/29/2024 Uncontrolled type 2 diabetes mellitus with hyper glycemia 06/29/2024 Benign hypertension 06/29/2024 Obstructive sleep apnea 06/29/2024 Paroxysmal atrial fibrillation 06/29/2024 Tobacco use disorder 06/29/2024 Hyperlipidemia 06/29/2024 Resolved Problems Problem Noted Date Diagnosed Date Resolved Date Infrarenal abdominal aortic aneurysm (AAA) without rupture 07/01/2024 02/06/2025 Encounters Date Type Department Care Team Description 02/11/2025 External Device Data STL ABSTRACTION Provider, Abstract 02/11/2025 External Device Data STL ABSTRACTION Provider, Abstract 02/11/2025 External Device Data STL ABSTRACTION Provider, Abstract 02/07/2025 Abstract [facility] [address] [facility] 101 [address] [facility] [address] [place] [phone] Nikki Spence FNP 02/06/2025 9:00 AM CDT Office Visit [facility] [address] [facility] 101 [address] [facility] [address] [place] [phone] Nikki Spence FNP Bilateral carotid artery stenosis (Primary Dx); Pure hypercholesterolemia; Paroxysmal atrial fibrillation (CMS/HCC); Cerebrovascular accident (CVA) due to embolism of right middle cerebral artery (CMS/HCC); Uncontrolled type 2 diabetes mellitus with hyperglycemia (CMS/HCC) 02/05/2025 8:15 AM CDT - 02/05/2025 11:59 PM CDT Hospital Encounter [facility] [address] [facility] [address] [place] [address] Nikki Spence FNP Discharge Disposition: Home or Self Care 01/23/2025 Telephone [facility] [address] [facility] 101 [address] [facility] [address] [place] [address] Nikki Spence FNP Needs Appointment 01/14/2025 External Device Data STL ABSTRACTION Provider, Abstract 12/18/2024 External Device Data STL ABSTRACTION Provider, Abstract 12/07/2024 External Device Data STL ABSTRACTION Provider, Abstract 12/07/2024 External Device Data STL ABSTRACTION Provider, Abstract 11/20/2024 External Device Data STL ABSTRACTION Provider, Abstract 11/19/2024 External Device Data STL ABSTRACTION Provider, Abstract from Last 3 Months Family History Medical History Relation Name Comments Other Father black lung dise ase Diabetes Mother Relation Name Status Comments Father Mother Social History Tobacco Use Types Packs/Day Years Used Date Smoking Tobacco: Former Cigarettes Q uit: 2021 Smokeless Tobacco: Never Alcohol Use Standard Drinks/Week Comments Not Currently 0 (1 standard drink = 0.6 oz pur e alcohol) former occasional Feeling Safe Answer Date Recorded Are you in a relationship wi th someone who hurts you emotionally and/or physically? No 06/29/2024 Food Insecurity Answer Date Recorded Patient needs follow up regardin 01/23/2025 Transportation Needs Answer Date Record ed Patient needs follow up regardin 01/23/2025 Housing Stability Answer Date Recorded Social/Environmental Concerns No concerns Utility Needs Answer Date Recorded Patient needs follow up regardin 01/23/2025 Sex and Gender Information Value Date Recorded Sex Assigned at Not on file Legal Sex Male 11:06 PM CDT Gender Identity Not on file Sexual Orientation Not on file Last Filed Vital Signs Vital Sign Reading Time Taken Comments Blood Pressure 142/79 02/06/2025 8:56 AM CDT Pulse 73 02/06/2025 8:56 AM CDT Temperature 36.6 C (97.9 F) 07/02/2024 8:26 AM CDT Respiratory Rate 18 07/02/2024 8:26 AM CDT Oxygen Saturation 97% 02/06/2025 8:56 AM CDT Inhaled Oxygen Concentration - - Weight 105.2 kg (232 lb) 02/06/2025 8:56 AM CDT Height 177.8 cm (5' 10 ) 02/06/2025 8:56 AM CDT Body Mass Index 33.29 02/06/2025 8:56 AM CDT Plan of Treatment Upcoming Encounters Date Type Department Care Team (Late st Contact Info) Description 08/07/2025 10:15 AM THERMAL ENGINEER Appointment [facility] [address] [place] [address] Nikki Spence, JERI [address] [place] [address] 08/07/2025 11:00 AM THERMAL ENGINEER Office Visit [facility] [address] [facility] 101 [address] [address] [place] [address] Nikki Spence, JERI [address] [address] [place] [address] Health Maintenance Due Date Last Done Comments DIABETES ANNUAL RETINAL EXAM 1980 DIABETES MICROALBUMIN ANNUAL SCREEN 1980 ZOSTER VACCINE (1 of 2) 1981 FIT-DNA Q 3 years 2007 FIT/FOBT Q 1 year 2007 Flex Sig/CT Colonography Q 5 years 2007 RSV VACCINE (60+ or ) (1 - Risk 60-74 years 1-dose series) 2022 INFLUENZA VACCINE (#1) 2024 , 07/24/2019, 08/03/2017, Additional history exists COVID-19 Vaccine ( - 2023-2 5 season) 2024 09/21/2021, 01/16/2021, 12/19/2020 DTAP/TDAP/TD VACCINES (3 - T d or Tdap) 02/09/2025 02/09/2015, 02/09/2015 DIABETES HBA1C Q 6 MONTHS 06/25/20252024, 12/06/2024, 06/29/2024, Additional history exists LDL CHOLESTEROL ANNUAL 06/30/2025 06/30/2024 DIABETES ANNUAL FOOT EXAM 07/08/2025 07/08/2024 COLORECTAL SCREENING 06/13/2034 06/13/2024, 06/13/20 Colorectal Cancer Screening 06/13/2034 Abdominal Aortic Aneurysm (A AA) Screening Completed 07/01/2024, 03/05/2018 Procedures Procedure Name Priority Date/Time Associated Diagnosis Comments US CAROTID DOPPLER Routine 02/05/2025 9: 16 AM CDT Bilateral carotid artery stenosis US AORTA Routine 07/01/2024 10:47 AM CDT LIPID PANEL Routine 06/30/2024 2:35 AM CDT HEMOGLOBIN A1C Routine 06/29/2024 5:22 AM CDT from Last 3 Months or Most Recently Relevant to Health Maintenance Results * US CAROTID DOPPLER (02/05/2025 9:16 AM CDT) Anatomical Region Laterality Modality Neck Ultrasound 02/05/2025 8:54 AM CDT Narrative 02/06/2025 4:11 PM CDT [facility] Cerebrovascular Exam Carotid Duplex Patient: Daniele Vu Study ID: [id number] Gender: M : 1960 Age: 64 Race: CAU Height Study Date: 02/05/2025 Weight: 107.8kg Access. #: [id number] *Referring Physician:* Nikki Spence Lesley Maria *Ordering Physician:* Nikki Spence *Automotive Parts Advisor:* Gabbie Pearson RVT, JL Indications: Carotid stenosis. History: PM: Prior study from is available for comparison. Risk factors: The patient is a current tobacco user. Hypertension. Diabetes mellitus. Hyperlipidemia. Study data: Study status: Routine. Procedure: A vascular evaluation was performed. Image quality was adequate. Carotid duplex study was performed using real-time imaging coupled with Doppler flow analysis. Carotid duplex study. Complete study and Doppler flow study including spectral analysis, color and zavala scale imaging. Birthdate: Patient birthdate: 1960. Age: Patient is 64year(s) old. Sex: gender: male. Weight: 107.8kg. : 237.7lb. Study date: Study date: 02/05/2025. Study time: 08:54 AM. Location: Vascular laboratory. Patient status: Outpatient. Impressions 1. The bilateral vertebral arteries are patent with normal antegrade flow. 2. Study suggests mild atherosclerosis involving the right common carotid artery. 3. Study suggests moderate atherosclerosis involving the right carotid artery bifurcation and the right internal carotid artery consistent with a 0-49% stenosis. 4. Appearance of >=50% stenosis involving the right external carotid artery. 5. Study suggests mild atherosclerosis involving the left common carotid artery. 6. Study suggests moderate atherosclerosis involving the left carotid artery bifurcation and the left internal carotid artery consistent with a 50-79% stenosis. 7. Appearance of >=50% stenosis involving the left external carotid artery. Tables: Arterial flow: + +-----+----+ !Location !V sys!V ed! + +-----+----+ !Right CCA - proximal!119 !19.9! + +-----+----+ !Right CCA - distal !80.6 !18.2! + +-----+----+ !Right ICA - proximal!80.7 !24.3! + +-----+----+ !Right ICA - mid !112 !39.2! + +-----+----+ !Right ICA - distal !108 !29 ! + +-----+----+ !Right ECA !-367 !----! + +-----+----+ !Right vertebral !75.5 !----! + +-----+----+ !Left CCA - proximal !126 !24.2! + +-----+----+ !Left CCA - distal !80.7 !22 ! + +-----+----+ !Left ICA - proximal !252 !62.7! + +-----+----+ !Left ICA - mid !94.9 !29.1! + +-----+----+ !Left ICA - distal !93.9 !32 ! + +-----+----+ !Left ECA !151 !----! + +-----+----+ !Left vertebral !41 !----! + +-----+----+ *Velocities are expressed in cm/s, Diameters are expressed in cm Velocity ratios: + +-----+-----+ ! !R PSV!L PSV! + +-----+-----+ !Max ICA/distal CCA!1.39 !3.12 ! + +-----+-----+ Prepared and Electronically Authenticated Louie Arnold [id number] Procedure Note Louie Arnold MD - 02/06/2025 [facility] Cerebrovascular Exam Carotid Duplex Patient: Daniele Vu Study ID: [id number] Gender: M : 1960 Age: 64 Race: [facility] Height Study Date: 02/05/2025 Weight: 107.8kg Access. #: [id number] *Referring Physician:* Nikki Sepnce Lesley Maria *Ordering Physician:* Nikki Spence *Automotive Parts Advisor:* Gabbie Pearson RVT, JL Indications: Carotid stenosis. History: PM: Prior study from is available for comparison.Risk factors: The patient is a current tobacco user. Hypertension. Diabetes mellitus. Hyperlipidemia. Study data: Study status: Routine. Procedure: A vascular evaluationwas performed. Image quality was adequate. Carotid duplex study wasperformed using real-time imaging coupled with Doppler flow analysis. Carotidduplex study. Complete study and Doppler flow study including spectralanalysis, color and zavala scale imaging. Birthdate: Patient birthdate:1960. Age: Patient is 64year(s) old. Sex: gender: male. Weight:107.8kg. : 237.7lb. Study date: Study date: 02/05/2025. Study time: 08:54 AM. Location: Vascular laboratory. Patient status: Outpatient. Impressions 1. The bilateral vertebral arteries are patent with normal antegradeflow. 2. Study suggests mild atherosclerosis involving the right commoncarotid artery. 3. Study suggests moderate atherosclerosis involving the right carotidartery bifurcation and the right internal carotid artery consistent with a0-49% stenosis. 4. Appearance of >=50% stenosis involving the right external carotidartery. 5. Study suggests mild atherosclerosis involving the left common carotid artery. 6. Study suggests moderate atherosclerosis involving the left carotidartery bifurcation and the left internal carotid artery consistent with a50-79% stenosis. 7. Appearance of >=50% stenosis involving the left external carotidartery. Tables: Arterial flow: + +-----+----+ !Location !V sys!V ed! + +-----+----+ !Right CCA - proximal!119 !19.9! + +-----+----+ !Right CCA - distal !80.6 !18.2! + +-----+----+ !Right ICA - proximal!80.7 !24.3! + +-----+----+ !Right ICA - mid !112 !39.2! + +-----+----+ !Right ICA - distal !108 !29 ! + +-----+----+ !Right ECA !-367 !----! + +-----+----+ !Right vertebral !75.5 !----! + +-----+----+ !Left CCA - proximal !126 !24.2! + +-----+----+ !Left CCA - distal !80.7 !22 ! + +-----+----+ !Left ICA - proximal !252 !62.7! + +-----+----+ !Left ICA - mid !94.9 !29.1! + +-----+----+ !Left ICA - distal !93.9 !32 ! + +-----+----+ !Left ECA !151 !----! + +-----+----+ !Left vertebral !41 !----! + +-----+----+ *Velocities are expressed in cm/s, Diameters are expressed in cm Velocity ratios: + +-----+-----+ ! !R PSV!L PSV! + +-----+-----+ !Max ICA/distal CCA!1.39 !3.12 ! + +-----+-----+ Prepared and Electronically Authenticated Louie Arnold [id number]:11:06 us Nikki Spence FILTERATION OPERATOR US ORDERABLES Alison kelly Result * US AORTA (07/01/2024 10:47 AM CDT) Anatomical Region Laterality Modality Abdomen Ultrasound 07/01/2024 10:4 8 AM CDT Impressions 07/01/2024 1:20 PM CDT IMPRESSION: 1. No abdominal aortic aneurysm. DICTATION LOCATION: [facility] Garcia 07/01/2024 1:20 PM CDT Examination: Aorta ultrasound. HISTORY: Abdominal aortic aneurysm. FINDINGS: The proximal aorta measures 2.7 x 2.9 cm. The mid aorta measures 2.5 x 2.4 cm. The distal aorta measures 2.0 x 2.0 cm. The iliac arteries measure up to 1.8 cm on the right and 1.8 cm on the left. Atherosclerotic changes are noted. Procedure Note Zeynep Quesada MD - 07/01/2024 Examination: Aorta ultrasound. HISTORY: Abdominal aortic aneurysm. FINDINGS: The proximal aorta measures 2.7 x 2.9 cm. The mid aorta measures 2.5 x 2.4 cm. The distal aorta measures 2.0 x 2.0 cm. The iliac arteries measure up to 1.8 cm on the right and 1.8 cm on the left. Atherosclerotic changes are noted. IMPRESSION: 1. No abdominal aortic aneurysm. DICTATION LOCATION: [facility] Louie Arnold MD ORDERABLES Final Result * LIPID PANEL (06/30/2024 2:35 AM CDT) [facility] CHOLESTEROL 132 <200 mg/dL 06/30/2024 3:27 AM CDT [facility] TRIGLYCERIDE 133 <150 mg/dL 06/30/2024 3:27 AM CDT [facility] HDL 47 40 - 59 mg/dL 06/30/2024 3:27 AM CDT [facility] LDL CALCULATED 58 <100 mg/dL 06/30/2024 3:27 AM CDT [facility] NON-HDL CHOLESTEROL 85 <130 mg/dL 06/30/2024 3:27 AM CDT [facility] Blood Venipuncture / Unknown 06/30/2024 2:35 AM CDT 06/30/2024 2:57 AM CDT [facility] - 06/30/2024 3:27 AM CDT TOTAL CHOLESTEROL mg/dL Desirable <200 Borderline high 200-239 High >=240 TRIGLYCERIDES mg/dL Normal <150 Borderline high 150-199 High 200-499 Very high >=500 HDL CHOLESTEROL mg/dL Low <40 Normal 40-59 Desirable >=60 NON HDL CHOLESTEROL mg/dL Optimal <130 Near Optimal 130-159 Borderline High 160-189 Very High >=190 CALCULATED LDL mg/dL LDL <70, OPTIMAL if have Atherosclerotic cardiovascular disease (ASCVD) or intermediate or higher (>7.5%) 10 year risk of ASCVD including most adults with diabetes. LDL <100, Optimal in adult patients with low (<7.5%) 10 year ASCVD risk LDL 100-160, Suboptimal LDL >160, High LDL >190, Very high ATPIII Guidelines Reference Ranges for Lipid Panels (NCEP/AMA) . Gina Santiago MD CHEMISTRY ORDERABL ES Final Result [facility] [id number] [place] [address] * (ABNORMAL) HEMOGLOBIN A1C (06/29/2024 5:22 AM CDT) HEMOGLOBIN A1C 8.7(H) <=5.6 % 06/29/2024 5:53 AM CDT [facility] [employer] [facility] EST. AVG GLUCOSE, A1C 203 mg/dL 06/29/2024 5:53 AM CDT [facility] [employer] [facility] Blood Venipuncture / Unknown 06/29/2024 5:22 AM CDT 06/29/2024 5:30 AM CDT Narrative [facility] [employer] [facility] - 06/29/2024 5:53 AM CDT HGB A1C INTERPRETATION NORMAL: <5.7% PRE-DIABETES: 5.7 - 6.4% DIABETES: 6.5% OR GREATER Gina Santiago MD CHEMISTRY ORDERABL ES Final Result [facility] [employer] [facility] [id number] [address] [place] [address] from Last 3 Months or Most Recently Relevant to Health Maintenance Insurance [facility] [id number] RX [employer] RX Member Subscriber Plan / Payer (Ef fective 2024-Present) Name:Daniele Vu Relation to Subscriber:Self Name:Daniele Vu Payer ID:Not on file Group ID:[id number] Type:RX Medicare Part D Address: [address] Advance Directives For more information, please contact: [phone] * Full Code (Latest Code Status on File) Date Activated Date Inactivated Comments 06/29/2024 4:40 AM 07/02/2024 3:34 PM
--- OUTSIDE RECORDS SUMMARY | 2025-02-16 14:37 | XMS_ITS | Encounter Summary ---
Author Organization [facility] Facility Care Team Providers Care Loom Changeover Operator Name Role Phone Sera Howard Primary Care Provider [phone] Rikki Romero MD Unavailable +[phone] Sultan Maria Luisa Teran MD Unavailable [phone] Keenan Mckoy RN Unavailable [phone] Emmy Barragan [facility] Unavailable Cary Pena MD Unavailable [phone] Shyann Mijares MA Unavailable Rigoberto Rodriguez MD Unavailable +[phone] Ching Chun LPN Unavailable +[phone] Encounter Details Date Type Department Care Team (Latest Contact Info) Description 01/16/2015 Orders Only [facility] CLINCON[facility] ProviderKumar MD [address] [place] [id number] Social History Tobacco Use Types Packs/Day Years Used Date Smoking Tobacco: Never Assessed Sex and Gender Information Value Date Recorded Sex Assigned at Not on file Legal Sex Male 6:48 AM HOUSING DIRECTOR Gender Identity Not on file Sexual Orientation Not on file documented as of this encounter Plan of Treatment Not on file documented as of this encounter Procedures Procedure Name Priority Date/Time Associated Diagnosis Comments CARDIOLOGY REPORT 10/26/2016 12: 00 AM HOUSING DIRECTOR documented in this encounter Results * CARDIOLOGY REPORT (10/26/2016 12:00 AM HOUSING DIRECTOR) Anatomical Region Laterality Modality Other Narrative 10/26/2016 12:00 AM HOUSING DIRECTOR Ordered by an unspecified provider. us Historical Provider [facility] Final Result documented in this encounter Visit Diagnoses Not on filedocumented in this encounter Additional Health Concerns Infection Onset Date Last Indicated Resolved Time C. difficile Comment:2012 01/08/2015 01/06/2015 04/18/2022 7:55 AM C DT COVID: Suspected 10/25/2021 10/27/2021 10/27/2021 8:01 PM HOUSING DIRECTOR COVID: Suspected 04/15/2022 04/15/2022 04/15/2022 4:54 PM CDT COVID: Suspected 11/05/2024 11/05/2024 11/05/2024 9:48 AM HOUSING DIRECTOR COVID: Suspected 12/23/2024 12/23/2024 12/23/2024 9:13 AM CDT documented as of this encounter Care Teams Loom Changeover Operator Relationship Specialty Start Date End Date Sera Howard PA [address] [place] [address] PCP - General Internal Medicine 01/03/19 Rikki Romero MD [address] [facility] [address] [place] [address] Consulting Physician Pulmonary Disease 01/30/19 Sultan Maria Luisa Teran MD [address] [facility] [address] [place] [address] Motorcycle Subassembler Cardiovascular Disease 01/30/19 Keenan Mckoy, GABO [address] [facility] [facility] [address] [place] [address] Fermenting Cellars Receiver 07/04/24 09/12/24 Emmy Barragan RPh [address] [facility] [address] [place] [address] Pharmacist Pharmacy 07/31/24 08/01/24 [place] [address] [place] [address] Consulting Physician Cardiovascular Disease 08/27/24 Shyann Mijares MA [address] [place] [address] [address] [place] [address] ACO Care Arch Pad Cementer 11/06/24 11/07/24 Rigoberto Rodriguez MD [address] [place] [address] [address] [place] [address] Surgeon Thoracic Surgery 01/06/25 Ching Chun LPN [address] [place] [address] [address] [place] [address] Fermenting Cellars Receiver 01/07/25 01/07/25 documented as of this encounter
[2025-02-16 14:38] VITALS: O2SAT 100
--- OUTSIDE RECORDS SUMMARY | 2025-02-16 14:38 | XMS_ITS | Encounter Summary ---
Author Organization [facility] Address [address] [place] [address] Phone Care Team Providers Care Assistant Professor Of Philosophy Name Role Phone Sera Howard Primary Care Provider [phone]- [phone] Rikki Romero MD Unavailable [phone] Sultan Maria Luisa Teran MD Unavailable [phone] Cary Pena MD Unavailable Rigoberto Rodriguez MD Unavailable [phone] Encounter Details Date Type Department Care Team (Late st Contact Info) Description 01/15/2025 Orders Only [facility] [address] [place] [address] Ila Irving, MEAT AND SEAFOOD MANAGER [address] [facility] [address] [place] [address] Acute postoperative pain (Primary Dx) Social History Tobacco Use Types Packs/Day Years Used Date Smoking Tobacco: Former Cigarettes 0.2 42 0 01/30/1979 - 01/30/2021 Cigars Smokeless Tobacco: Never Alcohol Use Standard Drinks/Week Comments Yes 0 (1 standard drink = 0.6 oz pur e alcohol) [facility] Utilities Answer Date Recorded In the past 12 months has [employer] electric, gas, oil, or water company threatened to shut off services in your home? No 12/24/2024 Social Connection and Isolation Panel [NHANES] A nswer Date Recorded In a typical week, how many times do you talk on the phone with family, friends, or neighbors? Three times a week 12/24/2024 How often do you get togethe r with friends or relatives? Three times a week 12/24/2024 How often do you attend chur ch or holiness services? Never 12/24/2024 Do you belong to any clubs o r organizations such as buddhist groups, unions, fraternal or athletic groups, or school groups? No 12/24/2024 How often do you attend meet ings of the clubs or organizations you belong to? Never 12/24/2024 Are you , , di vorced, , never , or living with a partner? 12/24/2024 AUDIT-C Answer Date Recorded Q1: How often do you have a drink containing alcohol? Never 06/13/2024 Q2: How many drinks containi ng alcohol do you have on a typical day when you are drinking? Patient does not drink Q3: How often do you have si x or more drinks on one occasion? Never 06/13/2024 Overall Financial Resource Strain (CARDIA) Answe r Date Recorded How hard is it for you to pa y for the very basics like food, housing, medical care, and heating? Somewhat hard 12/24/2024 PHQ-2 Answer Date Recorded PHQ-2 Total Score (If total score is 3 or more points, staff should administer the PHQ-9) 1 08/27/2024 Hunger Vital Sign Answer Date Recorded Within the past 12 months, y ou worried that your food would run out before you got the money to buy more. Never true 12/25/19 Within the past 12 months, t he food you bought just didn't last and you didn't have money to get more. Never true 12/24/2024 PRAPARE - Transportation Answer Date Re corded In the past 12 months, has l ack of transportation kept you from medical appointments or from getting medications? No 12/01 In the past 12 months, has l ack of transportation kept you from meetings, work, or from getting things needed for daily living? No 12/24/2024 Housing Stability Vital Sign Answer Fortino e Recorded In the last 12 months, was t here a time when you were not able to pay the mortgage or rent on time? No 12/24/2024 In the past 12 months, how m any times have you moved where you were living? 0 12/24/2024 At any time in the past 12 m ont, were you homeless or living in a correction (including now)? No 12/24/2024 Personal Safety Answer Date Recorded Have you ever been in or are you currently in a harmful physical or emotional relationship or is someone making you feel afraid or unsafe? Denies 01/17/2025 Sex and Gender Information Value Date Recorded Sex Assigned at Not on file Legal Sex Male 6:48 AM ADDICTION SPECIALIST Gender Identity Not on file Sexual Orientation Not on file Occupation Industry Job Start Date Job End Date Disablilty Not on file Not on file Not on file documented as of this encounter Plan of Treatment Not on file documented as of this encounter Goals Goal Patient Goal Type Associated Problems Recent Progress Patient-Stated? Author REX General Goal - Patient is knowledgeable about condition when worsening and how to respond ACO Care Management On track(2023 4:22 PM ADDICTION SPECIALIST) Keenan Acevedo, GABO Note: Problem: Knowledge deficit related to signs and symptoms of worsening condition Interventions: - Assess patient's level of understanding related to their condition(s), specific medications and self-management of their chronic conditions. - Send educational materials to patient related to their chronic condition, including signs and symptoms, self-management actions, and serious symptoms that require urgent medical intervention. - Assist patient/provider in developing an action plan for symptom management. - Review with patient weekly: s/s worsening condition, self-management actions to take, when to call CM or provider. documented as of this encounter Visit Diagnoses Diagnosis Acute postoperative pain- Primary Other acute postoperative pain documented in this encounter Discontinued Medications Medication Sig Discontinue Reason Start Date End Da te gabapentin (NEURONTIN) 300 mg capsule Take 1 capsule (300 mg total) by mouth 2 (two) times a day Duplicate order 08/27/2024 01/15/2025 documented as of this encounter Care Teams Assistant Professor Of Philosophy Relationship Specialty Start Date End Date Sera Howard PA [address] [facility] [address] [place] [address] PCP - General Internal Medicine 01/03/19 Rikki Romero MD [address] [facility] [address] [place] [address] Consulting Physician Pulmonary Disease 01/30/19 Sultan Maria Luisa Teran MD [address] [facility] [address] [address] Dietetic Tech Cardiovascular Disease 01/30/19 [place] [address] [address] Consulting Physician Cardiovascular Disease 08/27/24 [place] [address] [address] Surgeon Thoracic Surgery 01/06/25 documented as of this encounter
--- OUTSIDE RECORDS SUMMARY | 2025-02-16 14:38 | XMS_ITS | Encounter Summary ---
Author Organization [facility] Address [address] [place] [address] Care Team Providers Care Acetylene Torch Solderer Name Role Phone Sera Howard Primary Care Provider [phone]- [phone] Rikki Romero MD Unavailable [phone] Sultan Maria Luisa Teran MD Unavailable [phone] Cary Pena MD Unavailable [phone] Rigoberto Rodriguez MD Unavailable [phone] Encounter Details Date Type Department Care Team (Late st Contact Info) Description 01/13/2025 Results Follow-Up [facility] Family Medicine [address] [place] [address] Sera Howard PA [address] [place] [address] Basic metabolic panel, CBC without differential, eGFR Social History Tobacco Use Types Packs/Day Years Used Date Smoking Tobacco: Former Cigarettes 0.2 42 0 01/30/1979 - 01/30/2021 Cigars Smokeless Tobacco: Never Alcohol Use Standard Drinks/Week Comments Yes 0 (1 standard drink = 0.6 oz pur e alcohol) [facility] Utilities Answer Date Recorded In the past 12 months has th e electric, gas, oil, or water company threatened [...] any clubs o r organizations such as gnosticism groups, unions, fraternal or athletic groups, or [...] any time in the past 12 m [facility], were you homeless or living in a long-term (including now)? No 12/24/2024 Personal Safety Answer Date Recorded Have you ever been in or are you currently in a harmful physical or emotional relationship or is someone making you feel afraid or unsafe? Denies 01/17/2025 Sex and Gender Information Value Date Recorded Sex Assigned at Not on file Legal Sex Male 6:48 AM INSURANCE INVESTIGATOR Gender Identity Not on file Sexual Orientation [...] ACO Care Management On track(2023 4:22 PM INSURANCE INVESTIGATOR) No Keenan Mckoy, GABO Note: Problem: Knowledge deficit related to [...] Diagnoses Not on filedocumented in this encounter Care Teams Acetylene Torch Solderer Relationship Specialty Start Date End Date Sera Howard PA [address] [facility] [address] [place] [address] PCP - General Internal Medicine 01/03/19 Rikki Romero MD [address] [place] [address] Consulting Physician Pulmonary Disease 01/30/19 Sultan Maria Luisa Teran MD [address] [address] Debeaker Cardiovascular Disease 01/30/19 [place] [address] [address] Consulting Physician Cardiovascular Disease 08/27/24 [place] [address] [address] Surgeon Thoracic Surgery 01/06/25 documented as of this encounter
--- OUTSIDE RECORDS SUMMARY | 2025-02-16 14:38 | XMS_ITS | Encounter Summary ---
Author Organization [facility] Address [address] [facility] [address] [place] [address] Phone Care Team Providers Care Chemical Radiation Technician Name Role Phone Sera Howard Primary Care Provider [phone] Rikki Romero MD Unavailable [phone] Sultan Maria Luisa Teran MD Unavailable [phone] Cary Pena MD Unavailable Rigoberto Rodriguez MD Unavailable [phone] Encounter Details Date Type Department Care Team (Late st Contact Info) Description 01/15/2025 Telephone [facility] Surgery [facility] Advanced Medicine 8th [place] [address] [place] [address] Rigoberto Rodriguez MD [address] [facility] [address] [place] [address] Social History Tobacco Use Types Packs/Day Years Used Date Smoking Tobacco: Former Cigarettes 0.2 42 0 01/30/1979 - 01/30/2021 Cigars Smokeless Tobacco: Never Alcohol Use Standard Drinks/Week Comments Yes 0 (1 standard drink = 0.6 oz pur e alcohol) [facility] Utilities Answer Date Recorded In the past 12 months has e electric, gas, oil, or water company [...] often do you attend chur ch or jehovah's witness services? Never 12/24/2024 Do you belong to any clubs o r organizations such as synagogue groups, unions, fraternal or athletic groups, or school groups? No 12/24/2024 How often do you attend meet ings of the clubs or organizations you belong to? Never 12/24/2024 Are you , , di vorced, , never , or living with a partner? 12/24/2024 AUDIT-C Answer Date Recorded Q1: How often do you have a drink containing alcohol? Never 01/20/2025 Q2: How many drinks containi ng alcohol do you have on a typical day when you are drinking? Patient does not drink Q3: How often do you have si x or more drinks on one occasion? Never 01/20/2025 Overall Financial Resource Strain (CARDIA) Answe r Date Recorded How hard is it for you to pa y for the very basics like food, housing, medical care, and heating? Somewhat hard 12/24/2024 PHQ-2 Answer Date Recorded PHQ-2 Total Score (If total score is 3 or more points, staff should administer the PHQ-9) 2 01/20/2025 Hunger Vital Sign Answer Date Recorded Within [...] any time in the past 12 m [facility], were you homeless or living in a snf (including now)? No 12/24/2024 Personal Safety Answer Date Recorded Have you ever been in or are you currently in a harmful physical or emotional relationship or is someone making you feel afraid or unsafe? Denies 01/17/2025 Sex and Gender Information Value Date Recorded Sex Assigned at Not on file Legal Sex Male 6:48 AM DOOR SLINGER Gender Identity Not on file Sexual Orientation Not on file Occupation Industry Job Start Date Job End Date Disablilty Not on file Not on file Not on file documented as of this encounter Functional Status * Audit-C Score Answer Date of Assessment Author 0 01/20/2025 1:01 PM WALKERT Atul Flor MA * Question Answer Date of Assessment Author Q1: How often do you have a drink containing alcohol? Never 01/20/2025 1:01 PM WALKERT Lilibeth Flor M A Q2: How many drinks containing alcohol do you have on a typical day when you are drinking? Patient does not drink 01/20/2025 1:01 PM WALKERT Lilibeth Flor MA Q3: How often do you have six or more drinks on one occasion? Never 01/20/2025 1:01 PM WALKERT Lilibeth Flor M A documented as of this encounter Miscellaneous Notes * Telephone Encounter - Christie Mccracken CMA - 01/15/2025 11:36 AM CDT Called pt and left a vm to call me back - in regards to getting a ct scheduled and rescheduling hispostop documented in this encounter Plan of Treatment Not on file documented as of this encounter Goals Goal Patient Goal Type Associated Problems Recent Progress Patient-Stated? Author REX General Goal - Patient is knowledgeable about condition when worsening and how to respond ACO Care Management On track(2023 4:22 PM DOOR SLINGER) No Keenan Mckoy, RN Note: Problem: Knowledge deficit related to signs [...] on filedocumented in this encounter Care Teams Chemical Radiation Technician Relationship Specialty Start Date End Date Sera Howard PA [address] [facility] [address] [place] [address] PCP - General Internal Medicine 01/03/19 Rikki Romero MD [address] [facility] [address] [place] [address] Consulting Physician Pulmonary Disease 01/30/19 Sultan Maria Luisa Teran MD [address] [facility] [address] Water Softener Servicer Cardiovascular Disease 01/30/19 [place] [address] [address] Consulting Physician Cardiovascular Disease 08/27/24 [place] [address] [address] Surgeon Thoracic Surgery 01/06/25 documented as of this encounter
--- OUTSIDE RECORDS SUMMARY | 2025-02-16 14:38 | XMS_ITS | Encounter Summary ---
Author Organization [facility] Healthcare Address [address] [place] [address] Care Team Providers Care Medical Translator Name Role Phone Sera Howard Primary Care Provider [phone]- [phone] Rikki Romero MD Unavailable [phone] Sultan Maria Luisa Teran MD Unavailable [phone] Cary Pena MD Unavailable [phone] Rigoberto Rodriguez MD Unavailable [phone] Encounter Details Date Type Department Care Team (Late st Contact Info) Description 01/31/2025 Results Follow-Up [facility] Family Medicine [address] [place] [address] Sera Howard PA [address] [facility] [address] [address] [place] [address] Vitamin B12, Iron profile w/ IBC, Ferritin, Additional followed-up results: 2 Social History Tobacco Use Types Packs/Day Years Used Date Smoking Tobacco: Former Cigarettes 0.2 42 0 01/30/1979 - 01/30/2021 Cigars Smokeless Tobacco: Never Alcohol Use Standard Drinks/Week Comments Yes 0 (1 standard drink = 0.6 oz pur e alcohol) [facility] Utilities Answer Date Recorded In the past [...] often do you attend chur ch or shinto services? Never 12/24/2024 Do you belong to any clubs o r organizations such as evangelical groups, unions, fraternal or athletic groups, or [...] any time in the past 12 m [facility], were you homeless or living in a correction (including now)? No 12/24/2024 Personal Safety Answer Date Recorded Have you ever been in or are you currently in a harmful physical or emotional relationship or is someone making you feel afraid or unsafe? Denies 01/17/2025 Sex and Gender Information Value Date Recorded Sex Assigned at Not on file Legal Sex Male 6:48 AM JOSS HOUSE KEEPER Gender Identity Not on file Sexual Orientation [...] ACO Care Management On track(2023 4:22 PM JOSS HOUSE KEEPER) Keenan Acevedo, GABO Note: Problem: Knowledge deficit [...] on filedocumented in this encounter Care Teams Medical Translator Relationship Specialty Start Date End Date Sera Howard PA [address] [facility] [address] [place] [address] PCP - General Internal Medicine 01/03/19 Rikki Romero MD [address] [facility] [address] [place] [address] Consulting Physician Pulmonary Disease 01/30/19 Sultan Maria Luisa Teran MD [address] [facility] [address] [address] Religion Department Chair Cardiovascular Disease 01/30/19 [place] [address] [address] Consulting Physician Cardiovascular Disease 08/27/24 [place] [address] [address] Surgeon Thoracic Surgery 01/06/25 documented as of this encounter
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
[2025-02-16 14:51] LABS: Glucose Point of Care 218 mg/dl (65-105)
[2025-02-16 15:03] LABS: Alanine Aminotransferase 28 U/L (6-50); Albumin Level 4.5 g/dL (3.5-5.1); Alkaline Phosphatase 43 U/L (38-126); Anion Gap 9 mmol/L (4-12); Aspartate Amino Transferase 34 U/L (17-59); Bilirubin,Total 0.7 mg/dL (0.2-1.3); Blood Urea Nitrogen 14 mg/dL (9-20); Carbon Dioxide 24 mmol/L (22-30); Chloride 104 mmol/L (98-107); Estimated CRCL calculation 120 ml/min; Estimated Glomerular Filt Rate > 60; Glucose 180 mg/dL (65-110); Potassium 3.4 mmol/L (3.4-5.0); Sodium 137 mmol/L (137-145)
[2025-02-16 15:07] LABS: Basophils Absolute Auto 0.1 K/mm3 (0.0-0.1); Basophils Percent Auto 0.7 % (0.2-1.2); Eosinophils Absolute Auto 0.2 K/mm3 (0-0.3); Eosinophils Percent Auto 2.2 % (0-4.4); Hematocrit 42.2 % (42.0-52.0); Hemoglobin 13.1 g/dL (14.0-18.0); Immature Granulocyte Absolute 0.04 K/mm3 (0.00-0.031); Immature Granulocyte Percent A 0.5 % (0-0.5); Lymphocytes Absolute Auto 1.39 K/mm3 (0.9-3.2); Lymphocytes Percent Auto 18.1 % (18.3-44.2); Mean Corpuscular Hemoglobin 28.1 pg (26-34); Mean Corpuscular Volume 90.4 fl (80-100); Monocytes Absolute Auto 0.4 K/mm3 (0.1-0.6); Monocytes Percent Auto 4.8 % (2.6-8.5); Neutrophils Absolute Auto 5.7 K/mm3 (1.3-6.7); Neutrophils Percent Auto 73.7 % (45.5-73.1); Platelet Count Result 183 k/mm3 (150-375); Red Blood Count 4.67 M/mm3 (4.6-6.20); Red Cell Distribution Width 15.9 % (11.5-14.5); White Blood Count 7.7 K/mm3 (4.5-10.0)
--- NOTE | 2025-02-16 15:42 | ED_ITS ---
HPI - General Adult General Chief complaint: Recheck/Abnormal Lab/Rx Stated complaint: low BG Time Seen by Provider: 02/16/25 14:32 History of Present Illness HPI narrative: Patient is a 64-year-old male who presents ER with low blood sugar. He accidentally gave himself 50 units of his short-acting insulin because he has trouble with his eyesight. His blood sugar got down into the 40s. He had consumed multiple cool leads with extra sugar as well as Lauren's without extra sugar in them without being able to get his blood glucose to go up. EMS provided with intramuscular glucagon. Patient now around 250. Related Data Allergies Allergy/AdvReac Type Severity Reaction Status Date / Time No Known Allergies Allergy Verified 02/16/25 14:37 Review of Systems 2 Review of Systems: All systems reviewed & are unremarkable except as noted in HPI and below Constitutional: Constitutional: Reports no additional constitutional complaints ENT: Reports system reviewed and no additional complaints, except as documented Cardiovascular: Cardiovascular: Reports no additional cardiovascular complaints Respiratory: Respiratory: Reports no additional respiratory complaints Gastrointestinal: Gastrointestinal: Reports no additional gastrointestinal complaints [facility] Past Medical History Medical History COPD (chronic obstructive pulmonary disease) Hyperlipidemia Diabetes CAD (coronary atherosclerotic disease) CVA (cerebral vascular accident) Surgical History Surgical History History of percutaneous coronary intervention Exam 2 Narrative: GENERAL: Well-appearing, well-nourished, and in no acute distress. HEAD: Normocephalic, atraumatic. ENT: Mucous membranes moist. CHEST: Clear to auscultation. No respiratory distress. HEART: Regular rate and rhythm. Normal peripheral pulses. ABDOMEN: Soft, nontender, nondistended. EXTREMITIES: Normal range of motion. No edema. SKIN: Warm, dry, no rash. NEURO: Alert and oriented x3. PSYCH: Normal mood and affect. Course Course Emergency Course: Patient resting comfortably. His blood sugar is not in a critical area. He has not eaten since he has been here but does not wish to have any sat is at this time. He has been observed for 2 hours. Discharge. Vital Signs Vital signs: Vital Signs Temperature 97.9 F 02/16/25 14:25 Pulse Rate 69 02/16/25 14:25 Respiratory Rate 20 02/16/25 14:25 Blood Pressure 143/95 H 02/16/25 14:25 Pulse Oximetry 100 02/16/25 14:25 Oxygen Delivery Room Air 02/16/25 14:25 Temperature 97.9 F 02/16/25 14:25 Pulse Rate 69 02/16/25 14:25 Respiratory Rate 20 02/16/25 14:25 Blood Pressure 143/95 H 02/16/25 14:25 Pulse Oximetry 100 02/16/25 14:38 Oxygen Delivery Room Air 02/16/25 14:25 Medical Decision Making Vital Signs Vital Signs: Vital Signs Temperature 97.9 F 02/16/25 14:25 Pulse Rate 69 02/16/25 14:25 Respiratory Rate 02/16/25 14:25 Blood Pressure 143/95 H 02/16/25 14:25 Pulse Oximetry 100 02/16/25 14:25 Oxygen Delivery Room Air 02/16/25 14:25 Temperature 97.9 F 02/16/25 14:25 Pulse Rate 02/16/25 14:25 Respiratory Rate 02/16/25 14:25 Blood Pressure 143/95 H 02/16/25 14:25 Pulse Oximetry 02/16/25 14:38 Oxygen Delivery Room Air 02/16/25 14:25 Lab Data 02/16/25 14:48 02/16/25 14:48 Labs: Lab Results 02/16/25 02/16/25 02/16/25 Range/Units 14:36 14:48 15:42 WBC 7.7 (4.5-10.0) K/mm3 RBC 4.67 (4.6-6.20) M/mm3 Hgb 13.1 L (14.0-18.0) g/dL Hct 42.2 (42.0-52.0) % MCV 90.4 (80-100) fl MCH 28.1 (26-34) pg MCHC 31.0 L (32-36) g/dl RDW 15.9 H (11.5-14.5) % Plt Count 183 (150-375) k/mm3 MPV 10.0 (7.4-10.4) fl Immature Gran % (Auto) 0.5 (0-0.5) % Neut % (Auto) 73.7 H (45.5-73.1) % Lymph % (Auto) 18.1 L (18.3-44.2) % [place] % (Auto) 4.8 (2.6-8.5) % Eos % (Auto) 2.2 (0-4.4) % Baso % (Auto) 0.7 (0.2-1.2) % Lymph # (Auto) 1.39 (0.9-3.2) K/mm3 [place] # (Auto) 0.4 (0.1-0.6) K/mm3 Eos # (Auto) 0.2 (0-0.3) K/mm3 Baso # (Auto) 0.1 (0.0-0.1) K/mm3 Abs Immat Gran (auto) 0.04 H (0.00-0.031) K/mm3 Absolute Neuts (auto) 5.7 (1.3-6.7) K/mm3 Absolute Nucleated RBC 0.000 (0.0-0.012) K/mm3 Nucleated RBC % 0.0 (0.0-0.2) % Sodium 137 (137-145) mmol/L Potassium 3.4 (3.4-5.0) mmol/L Chloride 104 (98-107) mmol/L Carbon Dioxide 24 (22-30) mmol/L Anion Gap 9 (4-12) mmol/L BUN 14 (9-20) mg/dL Creatinine 0.68 L (0.7-1.3) mg/dL Estim Creat Clear Calc 120 ml/min Estimated GFR > 60 (59 - ) Glucose 180 H (65-110) mg/dL POC Capillary Glucose 218 H 158 H (65-105) mg/dl Calcium 9.0 (8.4-10.2) mg/dL Total Bilirubin 0.7 (0.2-1.3) mg/dL AST 34 (17-59) U/L ALT 28 (6-50) U/L Alkaline Phosphatase 43 (38-126) U/L Total Protein 8.0 (6.3-8.2) g/dL Albumin 4.5 (3.5-5.1) g/dL / Range/Units 16:39 WBC (4.5-10.0) K/mm3 RBC (4.6-6.20) M/mm3 Hgb (14.0-18.0) g/dL Hct (42.0-52.0) % MCV (80-100) fl MCH (26-34) pg MCHC (32-36) g/dl RDW (11.5-14.5) % Plt Count (150-375) k/mm3 MPV (7.4-10.4) fl Immature Gran % (Auto) (0-0.5) % Neut % (Auto) (45.5-73.1) % Lymph % (Auto) (18.3-44.2) % [place] % (Auto) (2.6-8.5) % Eos % (Auto) (0-4.4) % Baso % (Auto) (0.2-1.2) % Lymph # (Auto) (0.9-3.2) K/mm3 [place] # (Auto) (0.1-0.6) K/mm3 Eos # (Auto) (0-0.3) K/mm3 Baso # (Auto) (0.0-0.1) K/mm3 Abs Immat Gran (auto) (0.00-0.031) K/mm3 Absolute Neuts (auto) (1.3-6.7) K/mm3 Absolute Nucleated RBC (0.0-0.012) K/mm3 Nucleated RBC % (0.0-0.2) % Sodium (137-145) mmol/L Potassium (3.4-5.0) mmol/L Chloride (98-107) mmol/L Carbon Dioxide (22-30) mmol/L Anion Gap (4-12) mmol/L BUN (9-20) mg/dL Creatinine (0.7-1.3) mg/dL Estim Creat Clear Calc ml/min Estimated GFR (59 - ) Glucose (65-110) mg/dL POC Capillary Glucose 101 (65-105) mg/dl Calcium (8.4-10.2) mg/dL Total Bilirubin (0.2-1.3) mg/dL AST (17-59) U/L ALT (6-50) U/L Alkaline Phosphatase (38-126) U/L Total Protein (6.3-8.2) g/dL Albumin (3.5-5.1) g/dL Discharge Plan Discharge Clinical Impression: Hypoglycemia Patient Disposition: Home Condition: Stable Instructions: Hypoglycemia in a Person with Diabetes (ED) Additional Instructions: Be careful when administering her home medications to herself. Double check the dose and the medication before injecting. Make sure to check her sugars and continue to eat and drink so you do not go low on your blood glucose level. Patient Language: Bengali Prescriptions: No Action cephalexin 500 mg capsule 500 mg PO Q12H Qty: 10 0RF Follow-up/Referrals: Lee,MIC Zamora [Primary Care Provider] - 1 Week
[2025-02-16 15:44] LABS: Glucose Point of Care 158 mg/dl (65-105)
[2025-02-16 16:42] LABS: Glucose Point of Care 101 mg/dl (65-105)
== END 2025-02-16 17:04 | disposition home or self-care (01) ==
PROVIDERS: Emergency Provider Emergency Medicine; PCP Physician Assistant
DX: E11.649 Type 2 diabetes mellitus with hypoglycemia without coma (principal); E78.5 Hyperlipidemia, unspecified; J44.9 Chronic obstructive pulmonary disease, unspecified
CPT/HCPCS: 36415; 80053; 82948; 85025; 99283

== ENCOUNTER 2025-05-19 13:08 | Emergency (ER) | payer MEDICARE, SELFPAY ==
[2025-05-19 13:20] VITALS: BP 187/83; PULSE 89; RESP 20; TEMP 36.7; O2SAT 98
--- NOTE | 2025-05-19 13:23 | PC.NURSE ---
Pt was triaged and then declined to be seen, pt seen exiting the ED w/ his spouse, NAD noted, steady gait.
--- OUTSIDE RECORDS SUMMARY | 2025-05-19 14:01 | XMS_ITS | Encounter Summary ---
Author Organization [facility] Address [address] [place] [address] Care Team Providers Care Greenhouse Superintendent Name Role Phone Sera Howard Primary Care Provider [phone] Rikki Romero MD Unavailable [phone] Sultan Maria Luisa Teran MD Unavailable [phone] Keenan Mckoy RN Unavailable Emmy Barragan [facility] Unavailable Cary Pena MD Unavailable [phone] Shyann Mijares MA Unavailable Rigoberto Rodriguez MD Unavailable [phone] Ching Chun LPN Unavailable [phone] Encounter Details Date Type Department Care Team (Late st Contact Info) Description 07/06/2015 Orders Only [facility] Management [address] [place] [address] Scanning, Provider Social History Tobacco Use Types Packs/Day Years Used Date Smoking Tobacco: Never Assessed Sex and Gender Information Value Date Recorded Sex Assigned at Not on file Legal Sex Male 6:48 AM ASSESSMENT NURSE PRACTITIONER Gender Identity Not on file Sexual Orientation [...] COVID: Suspected 10/25/2021 10/27/2021 10/27/2021 8:01 PM ASSESSMENT NURSE PRACTITIONER COVID: Suspected 04/15/2022 04/15/2022 04/15/2022 4:54 PM CDT COVID: Suspected 11/05/2024 11/05/2024 11/05/2024 9:48 AM ASSESSMENT NURSE PRACTITIONER COVID: Suspected 12/23/2024 12/23/2024 12/23/2024 9:13 AM CDT documented as of this encounter Care Teams Greenhouse Superintendent Relationship Specialty Start Date End Date Sera Howard PA [address] [facility] [address] [facility] [address] [place] [address] PCP - General Internal Medicine 01/03/19 Rikki Romero MD [address] [facility] [address] [place] [address] Consulting Physician Pulmonary Disease 01/30/19 Sultan Maria Luisa Teran MD [address] [facility] [address] [address] [place] Mixer Operator Cardiovascular Disease 01/30/19 Keenan Mckoy, GABO [address] [place] [address] Educational Audiologist 07/04/24 09/12/24 Emmy Barragan RPh [address] [place] [address] Pharmacist Pharmacy 07/31/24 08/01/24 [place] [address] [facility] [address] [place] [address] Consulting Physician Cardiovascular Disease 08/27/24 Shyann Mijares MA [address] [place] [address] [address] [place] [address] ACO Care Mosaic Tile Maker 11/06/24 11/07/24 Rigoberto Rodriguez MD [address] [place] [address] [address] [place] [address] Surgeon Thoracic Surgery 01/06/25 Ching Chun LPN [address] [place] [address] [address] [place] [address] Educational Audiologist 01/07/25 01/07/25 documented as of this encounter
--- OUTSIDE RECORDS SUMMARY | 2025-05-19 14:01 | XMS_ITS | Encounter Summary ---
Author Organization [employer] [facility] Address 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 e xchange Encounter Details Date Type Department Care Team (Late Contact Info) Description 06/29/2024 Telephone [facility] Emergency [address] [place] [address] [place] [address] [address] [place] [address] Severe stenosis in rt & lf side vertebral artery (Spoke cara/Chelsie @ Dr[facility] Arnold's exchange) Social History Tobacco Use Types Packs/Day Years Used Date Smoking Tobacco: Every Day Cigarettes Smokeless Tobacco: Never Alcohol Use Standard Drinks/Week Comments Yes 0 (1 standard drink = 0.6 oz pur e alcohol) occasional Sex and Gender Information Value Date Recorded Sex Assigned at Not on file Legal Sex Male 11:06 PM CDT Gender Identity Not on file Sexual Orientation Not on file documented as of this encounter Plan of Treatment Upcoming Encounters Date Type Department Care Team (Late st Contact Info) Description 08/07/2025 10:15 AM ELEVATOR ERECTOR HELPER Appointment [facility] Heart and Vascular Testing [address] [place] [address] Nikki Spence, JERI [address] [address] [place] [address] 08/07/2025 11:00 AM ELEVATOR ERECTOR HELPER Office Visit [facility] Heart and Vascular Surgery [address] [address] [facility] [address] [address] [address] [facility] [address] [place] [address] Nikki Spence, [facility] [address] [facility] [address] [place] [address] documented as of this encounter Visit Diagnoses Not on filedocumented in this encounter
--- OUTSIDE RECORDS SUMMARY | 2025-05-19 14:01 | XMS_ITS | Encounter Summary ---
Author Organization [facility] Address [address] [place] [address] Care Team Providers Care Coremaker Bench Name Role Phone Unavailable Primary Care Provider Unavailabl e Reason for Visit * Reason Onset Date Comments Acute CVA, small PFO 07/01/2024 SPOKE cara/ MARC ROQUE@ [facility] OFF[facility] Encounter Details Date Type Department Care Team (Late Contact Info) Description 07/01/2024 Telephone [facility] Admitting [address] [place] [address] [place] [address] [address] [place] [address] Acute CVA, small PFO (SPOKE [...] st Contact Info) Description 08/07/2025 10:15 AM SUPERVISOR ASBESTOS TEXTILE Appointment [facility] Heart and Vascular Testing [address] [place] [address] Nikki Spence FNP [address] [address] [place] [address] 08/07/2025 11:00 AM SUPERVISOR ASBESTOS TEXTILE Office Visit [facility] Heart and Vascular Surgery [address] [address] [facility] [address] [address] [address] [facility] [address] [place] [address] Nikki Spence [facility] [address] [address] [facility] [address] [place] [address] documented as of this encounter Visit Diagnoses Not on filedocumented in this encounter
--- OUTSIDE RECORDS SUMMARY | 2025-05-19 14:02 | XMS_ITS | Encounter Summary ---
Author Organization [facility] Healthcare Address [address] [place] [address] Care Team Providers Care Milk Hauler Name Role Phone Sera Howard Primary Care Provider [phone] Rikki Romero MD Unavailable [phone] Sultan Maria Luisa Teran MD Unavailable [phone] Cary Pena MD Unavailable [phone] Rigoberto Rodriguez MD Unavailable [phone] Encounter Details Date Type Department Care Team (Late st Contact Info) Description 05/19/2025 Telephone [facility] Medical Group Diabetes Endocrine Care at [address] [address] Chelsie Boyle, COMMUNITY HEALTH REPRESENTATIVE [address] [address] Social History Tobacco Use Types Packs/Day Years Used Date Smoking Tobacco: Former Cigarettes 0.2 42 0 01/30/1979 - 01/30/2021 Cigars Smokeless Tobacco: Never Alcohol Use Standard Drinks/Week Comments Yes 0 (1 standard drink = 0.6 oz pur e alcohol) [facility] Utilities Answer Date Recorded In the past 12 months has e electric, gas, oil, or water company threatened to shut off services in your home? No 12/24/2024 Social Connection and Isolation Panel Answer Date Recorded In a typical week, how many times do you talk on the phone with family, friends, or neighbors? Three times a week 12/24/2024 How often do you get togethe r with friends or relatives? Three times a week 12/24/2024 How often do you attend chur ch or evangelical services? Never 12/24/2024 Do you belong to any clubs o r organizations such as jehovah's witness groups, unions, fraternal or athletic groups, or school groups? No 12/24/2024 How often do you attend meet ings of the clubs or organizations you belong to? Never 12/24/2024 Are you , , di vorced, , never , or living with a partner? 12/24/2024 AUDIT-C Answer Date Recorded Q1: How often do you have a drink containing alcohol? Never 02/26/2025 Q2: How many drinks containi ng alcohol do you have on a typical day when you are drinking? Patient does not drink Q3: How often do you have si x or more drinks on one occasion? Never 02/26/2025 Overall Financial Resource Strain (CARDIA) Answe r Date Recorded How hard is it for you to pa y for the very basics like food, housing, medical care, and heating? Somewhat hard 12/24/2024 PHQ-2 Answer Date Recorded PHQ-2 Total Score (If total score is 3 or more points, staff should administer the PHQ-9) 2 02/26/2025 Hunger Vital Sign Answer Date Recorded Within [...] any time in the past 12 m [facility], were you homeless or living in a mcc (including now)? No 12/24/2024 Personal Safety Answer Date Recorded Have you ever been in or are you currently in a harmful physical or emotional relationship or is someone making you feel afraid or unsafe? Denies 01/17/2025 Sex and Gender Information Value Date Recorded Sex Assigned at Not on file Legal Sex Male 6:48 AM SUPERVISOR POULTRY HATCHERY Gender Identity Not on file Sexual Orientation Not on file Occupation Industry Job Start Date Job End Date Disablilty Not on file Not on file Not on file documented as of this encounter Miscellaneous Notes * Telephone Encounter - Chelsie Boyle NP - 05/19/2025 12:43 PM CDT Fingerstick blood sugar- batteries were . Unable to see blood sugar. Patient/. state he ate 2 arbys sandwich and vanilla shake, took glucose tablets. will take him to [facility] Emergency room as patient states he can not eat any more. Encouraged to call 911. said it is not far and it was too expensive to call ambulance. States he did not take his insulin this am. * Telephone Encounter - Nani Nicholas MA - 05/19/2025 12:37 PM CDT Patient is having a hard time keeping his sugar up. He states it was at 69 and then dropped to 42. He has had OJ, geri kisses, a snickers bar and glucose tablets and nothing is working. Please review message and advise. Thank you. documented in this encounter Plan of Treatment Not on file documented as of this encounter Goals Goal Patient Goal Type Associated Problems Recent Progress Patient-Stated? Author REX General Goal - Patient is knowledgeable about condition when worsening and how to respond ACO Care Management On track(2023 4:22 PM SUPERVISOR POULTRY HATCHERY) No Keenan Mckoy, RN Note: Problem: Knowledge [...] on filedocumented in this encounter Care Teams Milk Hauler Relationship Specialty Start Date End Date Sera Howard PA [address] [facility] [address] [place] [address] PCP - General Internal Medicine 01/03/19 Rikki Romero MD [address] [facility] [address] [address] [place] [address] Consulting Physician Pulmonary Disease 01/30/19 Sultan Maria Luisa Teran MD [address] [facility] [address] [address] Slubber Frame Changer Cardiovascular Disease 01/30/19 [place] [address] [address] Consulting Physician Cardiovascular Disease 08/27/24 [place] [address] [address] Surgeon Thoracic Surgery 01/06/25 documented as of this encounter
--- OUTSIDE RECORDS SUMMARY | 2025-05-19 14:02 | XMS_ITS | Clinical Summary ---
Author Organization [facility] [address] [facility] Address [address] [place] [address] Care Team Providers Care Account General Manager Name Role Phone Jon Howard Primary Care Provider [phone] Rikki Romero MD Unavailable [phone] [place] Maria Luisa Teran MD Unavailable [phone] Cary Pena MD Unavailable [phone] Rigoberto Rodriguez MD Unavailable Allergies No known active allergies Medications acetaminophen (TYLENOL) 325 mg tablet Take 2 tablets (650 mg total) by mouth every 8 (eight) hours as needed 024 Active OneTouch Delica Plus Lancet 33 gauge misc USE 1 LANCETS TO CHECK GLUCOSE TWICE DAILY BEFORE BREAKFAST AND DINNER 024 Active pen needle, diabetic 32 gauge x 5/32 needleIndication s:Type 2 diabetes mellitus with diabetic polyneuropathy, without long-term current use of insulin (HCC) Use to inject insulin up to 4times/day. E11.65 100 each 3 024 Active lancets misc 1 each by other route daily Use to monitor blood sugar daily. E11.65 100 each 3 024 Active blood-glucose meter kit Use daily as directed for monitoring of blood sugar for diabetes. E11.65 1 kit 1 024 Active blood glucose diagnostic (glucose blood) strip Check blood sugar daily or as directed. E11.65 100 each 4 024 Active Brilinta 90 mg tablet Take 1 tablet (90 mg total) by mouth 2 (two) times a day Active melatonin tablet Take 1 tablet (3 mg total) by mouth nightly as needed for sleep Active UNABLE TO FIND Take 1 each by mouth nightly as needed (sleep) Med Name: Jayden Active nitroglycerin (NITROSTAT) 0.4 mg SL tablet DISSOLVE ONE TABLET UNDER THE TONGUE EVERY 5 MINUTES NEEDED FOR CHEST PAIN. DO NOT EXCEED A TOTAL OF 3 DOSES IN 15 MINUTES Active fluticasone propion-salmeter oL (Advair Diskus) 500-50 mcg/dose diskus inhalerIndicatio ns:Moderate persistent asthma without complication Inhale 1 puff 2 (two) times a day Rinse mouth with water after use. Do not swallow. 3 each Active dupilumab (Dupixent Pen) pen injector Inject 2 mL (300 mg total) under the skin every 14 (fourteen) days 2 mL Active benzonatate (TESSALON) 200 mg capsuleIndicatio ns:Cough Take 1 capsule (200 mg total) by mouth 3 (three) times a day as needed for cough 45 capsule 1 Active Additional Information Patient not taking.Reported on 05/15/2025 polyethylene glycol (MIRALAX) 17 gram/dose bulk powderIndication s:constipation Take 17 g by mouth daily as needed (Constipation) Active senna-docusate (PERICOLACE) 8.6-50 mgIndications:co nstipation Take 1 tablet by mouth 2 (two) times a day as needed for constipation 025 Active traMADoL (ULTRAM) 50 mg tabletIndication s:Acute postoperative pain Take 1 tablet (50 mg total) by mouth every 6 (six) hours as needed for pain (Severe pain note relieved with over the counter medications) for up to 7 days 21 tablet [address] (CYMBALTA) 60 mg capsuleIndicatio ns:Moderate episode of recurrent major depressive disorder (HCC) Take 1 capsule (60 mg total) by mouth 2 (two) times a day 180 capsule 1 025 Active isosorbide mononitrate ER (IMDUR) 30 mg 24 hr tablet Take 1 tablet (30 mg total) by mouth daily Active Soliqua 100/33 100 unit-33 mcg/mL insulin penIndications:t ype 2 diabetes mellitus Inject 50 Units under the skin daily Take 50 units daily. E11.65 45 mL 4 025 Active acetone, urine, test strip Test first AM urine and as directed 100 strip 11 025 Active albuterol HFA (PROVENTIL HFA,VENTOLIN HFA,PROAIR HFA) 90 mcg/actuation inhalerIndicatio ns:Chronic obstructive pulmonary disease, unspecified COPD type ([facility]),Seasonal allergic rhinitis due to pollen INHALE 2 PUFFS BY MOUTH EVERY 6 HOURS NEEDED FOR WHEEZING OR SHORTNESS OF BREATH 9 g 025 Active albuterol 2.5 mg /3 mL (0.083 %) nebulizer solutionIndicati ons:Moderate persistent asthma without complication,Chr onic obstructive pulmonary disease, unspecified COPD type (HCC),Seasonal allergic rhinitis due to pollen USE 1 VIAL IN NEBULIZER THREE TIMES DAILY FOR TREATMENT OF COPD 360 mL 3 025 Active Spiriva Respimat 2.5 mcg/actuation inhaler INHALE 2 PUFFS BY MOUTH ONCE DAILY 4 g 025 Active rosuvastatin (CRESTOR) 40 mg tabletIndication s:Hypercholester emia Take 1 tablet by mouth once daily 90 tablet 025 Active empagliflozin (Jardiance) 25 mg tablet Take 1 tablet by mouth once daily 90 tablet 3 025 Active losartan (COZAAR) 100 mg tablet Take 1 tablet by mouth once daily 90 tablet 025 Active buPROPion XL (WELLBUTRIN XL) 300 mg 24 hr tablet TAKE 1 TABLET BY MOUTH ONCE DAILY IN THE MORNING 90 tablet 025 Active Eliquis 5 mg tablet Take 1 tablet by mouth twice daily 200 tablet 025 Active insulin lispro (HumaLOG, ADMELOG) 100 unit/mL [...] Maximum 42 units daily as needed e11.65 45 mL 3 Active doxycycline (VIBRAMYCIN) 100 mg capsuleIndicatio ns:Moderate persistent asthma without complication Take 1 tablet/capsule (100 mg total) by mouth 2 (two) times a day for 10 days 20 tablet/caps ule 025 2024 Active predniSONE (DELTASONE) 10 mg tabletIndication s:Moderate persistent asthma without complication Take 4 tablets (40 mg) by mouth daily for 3 days, THEN 3 tablets (30 mg) daily for 3 days, THEN 2 tablets (20 mg) daily for 3 days, THEN 1 tablet (10 mg) daily for 3 days, THEN 0.5 tablets (5 mg) daily for 3 days. 32 tablet 025 2024 Active empagliflozin (Jardiance) 25 mg tabletIndication s:type 2 diabetes mellitus Take 1 tablet (25 mg total) by mouth daily E11.65 90 tablet 4 024 2024 Discontinued apixaban (Eliquis) 5 mg tablet Take 1 tablet by mouth twice daily 200 tablet 1 025 2024 Discontinued rosuvastatin (CRESTOR) 40 mg tabletIndication s:Hypercholester emia Take 1 tablet (40 mg total) by mouth daily 90 tablet 025 2024 Discontinued insulin lispro (HumaLOG, ADMELOG) 100 unit/mL pen [...] daily as needed e11.65 15 mL 2 025 2024 Discontinued(R eorder) buPROPion XL (WELLBUTRIN XL) 300 mg 24 hr tablet TAKE 1 TABLET BY MOUTH ONCE DAILY IN THE MORNING 90 tablet 025 2024 Discontinued losartan (COZAAR) 100 mg tablet Take 1 tablet by mouth once daily 90 tablet 025 2024 Discontinued Spiriva Respimat 2.5 mcg/actuation inhaler INHALE 2 PUFFS BY MOUTH ONCE DAILY 4 g 025 2024 Discontinued Active Problems Patient Care Coordination No te Formatting of this note migh t be different from the original. CAD for BIC Problem Noted Date Diagnosed Date Hypertension associated with diabetes 03/17/2025 Obesity (BMI 30.0-34.9) 02/02/2025 Assessment & Plan (02/26/2025 8:32 AM CDT): Weight/BMI is in healthy range. Continue healthy lifestyle to maintain. Assessment & Plan (02/02/2025 3:49 PM CDT): [...] on 01/01/2025 Type 2 diabetes mellitus wit hout complication, with long-term current use of insulin 01/01/2025 [...] 01/01/2025 Hypocalcemia 01/01/2025 Normocytic hypochromic anemia 01/01/2025 Multifocal pneumonia 12/23/2024 Pleural effusion on left [...] Physical therapy and Occupational therapy outpatient at [facility]. Referral given. Await their recommendation [...] and his lack of follow-up with his manager event. He says he will make an appointment with cards once his breathing has resolved. Medicare annual wellness visit, subsequent 03/21 Assessment & Plan (01/09/2023 9:44 PM CDT): Encouraged healthy lifestyle, good nutrition and exercise. Encouraged Calcium and Vitamin D and weight bearing exercise for bone health. Reviewed immunizations. Reviewed age appropirate screenings. Medicare Wellness Documentation is completed within the chart Fatigue 06/22/2021 Assessment & Plan (01/09/2023 9:44 PM CDT): Probably multifactorial. Check labs and followup to re-evaluate Assessment & Plan (11/25/2021 10:04 PM ELECTRIC CONTAINER TESTER): Probably multifactorial. Check labs and followup to re-evaluate Assessment & Plan (06/22/2021 10:25 AM CDT): Probably multifactorial. Check labs and followup to re-evaluate BMI 33.0-33.9,adult 10/21/2020 Assessment & Plan (02/26/2025 8:32 AM CDT): Weight/BMI is in healthy range. Continue healthy lifestyle to maintain. Assessment & Plan (07/21/2021 7:17 AM CDT): Obesity is unchanged. Discussed the patient's BMI. The BMI is above average. BMI management plan is completed. BMI Follow-up includes: nutrition counseling, exercise counseling and education provided. Assessment & Plan (06/22/2021 7:48 AM CDT): Obesity is unchanged. Discussed the patient's BMI. The BMI is above average. BMI management plan is completed. BMI Follow-up includes: nutrition counseling, exercise counseling and education provided. Assessment & Plan (02/16/2021 8:47 AM CDT): Obesity is unchanged. Discussed the patient's BMI. The BMI is above average. BMI management plan is completed. BMI Follow-up includes: nutrition counseling, exercise counseling and education provided. Assessment & Plan (11/24/2020 11:04 AM ELECTRIC CONTAINER TESTER): He was encouraged to lose weight. Assessment & Plan (10/21/2020 8:36 AM ELECTRIC CONTAINER TESTER): Obesity is unchanged. Discussed the patient's BMI. The BMI is above average. BMI management plan is completed. BMI Follow-up includes: nutrition counseling, exercise counseling and education provided. Moderate persistent asthma without complication 08/23/2019 Assessment & Plan (11/25/2023 10:14 PM ELECTRIC CONTAINER TESTER): Continue per pulmonology. See COPD Assessment & Plan (08/28/2021 12:53 PM ELECTRIC CONTAINER TESTER): Stop smoking. Continue per Pulmonary Assessment & Plan (06/22/2021 10:24 AM CDT): Continue per Pulmonary He has stopped smoking Cigar smoker 02/01/2019 Overview (02/01/2019): Assessment & Plan (08/28/2021 12:53 PM ELECTRIC CONTAINER TESTER): Encouraged smoking cessation. Discussed 3 minutes. Reviewed options for assistance with cessation. Reviewed life sciences director sequela associated with smoking. Pt declines assistance at this time but may contact the office at anytime for further help as they desire. Assessment & Plan (02/26/2021 12:02 AM CDT): Stop smoking. Encouraged smoking cessation. Discussed 3 minutes. Reviewed options for assistance with cessation. Reviewed life sciences director sequela associated with smoking. Pt declines assistance at this time but may contact the office at anytime for further help as they desire. Assessment & Plan (11/24/2020 11:01 AM ELECTRIC CONTAINER TESTER): He was strongly advised to stop smoking. Assessment & Plan (11/18/2020 1:49 PM ELECTRIC CONTAINER TESTER): Stop smoking. Assessment & Plan (10/25/2020 6:31 PM ELECTRIC CONTAINER TESTER): Encouraged smoking cessation. Discussed 3 minutes. Reviewed options for assistance with cessation. Reviewed life sciences director sequela associated with smoking. Pt declines assistance at this time but may contact the office at anytime for further help as they desire. Assessment & Plan (02/27/2019 8:01 PM CDT): Encouraged smoking cessation. Discussed approx 3 minutes. No desire to stop Assessment & Plan (02/01/2019 12:59 PM CDT): Encouraged smoking cessation. Discussed approx 3 minutes. Not interested in cessation History of IL (myocardial infarction) 02/01/2019 Overview (02/01/2019): 01/2018 . Assessment & Plan (11/24/2020 11:03 AM ELECTRIC CONTAINER TESTER): No definite history of an IL. . Though he thinks that he had an IL. Assessment & Plan (02/27/2019 8:01 PM CDT): Will probably return to a BB. Encouraged to start ASA Encouraged statin, start today Reviewed with patient that uncontrolled chronic conditions like his afib, dm and alcoholism and smoking all increase his risk of repeat event. Assessment & Plan (02/01/2019 1:29 PM CDT): Non-compliant to followup. Not currently on BB or NGUYỄN or statin. Encouraged to followup with Cardio. PIERRE on CPAP 01/30/2019 Assessment & Plan (07/21/2024 4:10 PM CDT): Encouraged to follow-up with sleep medicine. Does see Dr. Romero pulmonary Assessment & Plan (10/25/2020 5:17 PM ELECTRIC CONTAINER TESTER): Patient has needed supplies but has not been using. Encouraged to restart and followup with Pulmonary. He will set the appointment Assessment & Plan (02/27/2019 8:07 PM CDT): Encoruaged to use qnight. Has needed supplies Assessment & Plan (02/01/2019 12:50 PM CDT): Encoaurged to use to avoid life sciences director sequela from untreated PIERRE not limited to [...] concerns. Assessment & Plan (08/28/2021 12:50 PM ELECTRIC CONTAINER TESTER): Continue per cardio. He still has not called Dr. dalton it is office to reschedule. Strongly encouraged an appointment. Assessment & Plan (02/26/2021 12:02 AM CDT): Continue per Cardio. Assessment & Plan (11/24/2020 11:01 AM ELECTRIC CONTAINER TESTER): History of paroxysmal atrial fibrillation. Was on Multaq and Xarelto at 1 time. No more. The EKG today shows a normal sinus rhythm, normal QRS morphology. Assessment & Plan (11/18/2020 1:47 PM ELECTRIC CONTAINER TESTER): Has followup with Cardio Dr. Teran. Will discuss AC with him. Assessment & Plan (10/25/2020 6:21 PM ELECTRIC CONTAINER TESTER): This is a significant, separately identifiable problem [...] appt as he is an established patient Shortness of breath 01/30/2019 Assessment & Plan (11/24/2020 11:06 AM ELECTRIC CONTAINER TESTER): Exertional dyspnea on mild to moderate activity . The labs are reviewed. Will get an echo Doppler study to assess the left ventricular systolic function. Lexiscan stress test to look for myocardial ischemia. Non compliance w medication regimen 01/30/2019 Assessment & Plan (06/22/2021 10:21 AM CDT): Stressed importance of taking his medications daily to manage his conditions and prevent snf sequela Assessment & Plan (10/25/2020 6:28 PM ELECTRIC CONTAINER TESTER): Stressed importance of taking medication as instructed. [...] outcomes/sequela not limited to , stroke, another IL, renal failure, debility, etc. He voices full understanding. COPD (chronic obstructive pulmonary disease) 10/2018 Assessment & Plan (11/25/2023 10:13 PM ELECTRIC CONTAINER TESTER): Patient has quit smoking. Continue per pulmonology Dr. Romero. Continue Singulair albuterol and Trelegy Assessment & Plan (01/09/2023 9:40 PM CDT): Continue per pulmonology. Patient states he is completely quit smoking Assessment & Plan (05/01/2022 11:24 PM CDT): Patient needs to set follow-up with his alodize machine operator Dr. Romero. Stressed the importance of regular care Assessment & Plan (11/25/2021 10:02 PM ELECTRIC CONTAINER TESTER): Significant disease. Continue per Dr. Romero. Assessment & Plan (08/28/2021 12:53 PM ELECTRIC CONTAINER TESTER): Stop smoking. Continue per Pulmonary. Stressed importance of setting follow-up plan keeping them. Assessment & Plan (02/26/2021 12:01 AM CDT): Stop smoking. Continue per pulmonary Assessment & Plan (11/24/2020 11:02 AM ELECTRIC CONTAINER TESTER): Was told to stop smoking. He has an appointment to see Dr. Romero in pulmonary consultation. Assessment & Plan (11/18/2020 1:47 PM ELECTRIC CONTAINER TESTER): Restarted inhalers and singulair. Encouraged to make followup appt with Dr. Romero Stop cigars. Assessment & Plan (10/25/2020 5:18 PM ELECTRIC CONTAINER TESTER): This is a significant, separately identifiable problem [...] day Assessment & Plan (09/08/2024 10:24 PM ELECTRIC CONTAINER TESTER): Depression symptoms have been stable with Cymbalta 60 and Wellbutrin XL 300. Refills sent to pharmacy Assessment & Plan (07/21/2024 4:09 PM CDT): Continue Cymbalta and Wellbutrin Assessment & Plan (11/25/2023 10:13 PM ELECTRIC CONTAINER TESTER): Depression symptoms are stable with Cymbalta 60 [...] 60 Assessment & Plan (11/25/2021 10:03 PM ELECTRIC CONTAINER TESTER): Continue Cymbalta Assessment & Plan (06/22/2021 10:23 AM CDT): Continue cymbalta Assessment & Plan (02/26/2021 12:02 AM CDT): Continue cymbalta Assessment & Plan (11/18/2020 1:50 PM ELECTRIC CONTAINER TESTER): Increase Cymbalta to 60mg daily. Assessment & Plan (10/25/2020 6:31 PM ELECTRIC CONTAINER TESTER): This is a significant, separately identifiable problem [...] 01/30/2019 Assessment & Plan (10/25/2020 6:31 PM ELECTRIC CONTAINER TESTER): Managed currently without medicatoin Assessment & Plan (02/27/2019 8:02 PM CDT): Continue current regimen Assessment & Plan (02/01/2019 1:08 PM CDT): Restart singulair/otc antihistamines. Gastroesophageal reflux disease without esophagi tis 01/30/2019 Assessment & Plan (08/28/2021 12:53 PM ELECTRIC CONTAINER TESTER): Continue PPI Assessment & Plan (10/25/2020 6:23 PM ELECTRIC CONTAINER TESTER): Stable without medication. Sxs are better with stopping alcohol Assessment & Plan (02/27/2019 8:04 PM CDT): Managed without medication. Decrease triggers including tobacco and alcohol. Assessment & Plan (02/01/2019 12:56 PM CDT): Not complaining of sxs. Today. Recommend to stop alcohol as can be a trigger. Recovering alcoholic 01/30/2019 Overview (11/18/2020): Last drink summer 2019 Assessment & Plan (11/25/2023 10:13 PM ELECTRIC CONTAINER TESTER): Patient states he has not been drinking for quite a few years. He is adopted his grandson and is very motivated to remain off alcohol Assessment & Plan (01/09/2023 9:42 PM CDT): Patient states he continues to refrain from alcohol use Assessment & Plan (11/25/2021 10:04 PM ELECTRIC CONTAINER TESTER): Patient had gone during free for quite a while but states he has returned to drinking some alcohol at times. States it is difficult to not drink when friends come over. Strongly encouraged him to have full cessation and to join AA or other support group so that he can remain off the alcohol. Assessment & Plan (08/28/2021 12:53 PM ELECTRIC CONTAINER TESTER): Continue cessation. Assessment & Plan (06/22/2021 10:23 AM CDT): Continue full alcohol cessation Assessment & Plan (02/26/2021 12:00 AM CDT): Continue abstienence. Assessment & Plan (11/24/2020 11:05 AM ELECTRIC CONTAINER TESTER): Last during summer 2019. Assessment & Plan (11/18/2020 1:46 PM ELECTRIC CONTAINER TESTER): Still no alcohol use. Assessment & Plan (10/25/2020 5:07 PM ELECTRIC CONTAINER TESTER): Encouraged to consider abstinence. Discussed AA but [...] High EST. AVG GLUCOSE, A1C mg/dL [facility] Lab Results Component Value Date HGBA1C [...] losartan Assessment & Plan (11/25/2023 10:14 PM ELECTRIC CONTAINER TESTER): Stressed importance of continued A1c control to minimize the life sciences director effects of diabetes. Bring accuchecks to office when instructed to do so. Check A1c about every 3-6 months. Take medication as prescribed. Get annual eye exam. Encouraged NGUYỄN/Statin if able to tolerate. Encouraged weight control [...] of continued A1c control to minimize the life sciences director effects of diabetes. Bring accuchecks to office when instructed to do so. Check A1c about every 3-6 months. Take medication as prescribed. Get annual eye exam. Encouraged NGUYỄN/Statin if able to tolerate. Encouraged weight control and encouraged diabetic diet and exercise. Continue per Chelsie Boyle nurse practitioner for diabetes management. He feels as though his gabapentin isn't helping the neuropathy as much as it used to. He does note sedation. Will have him continue with 100 mg in the morning and 200 at night. Dose adjusted. Assessment & Plan (10/28/2022 3:14 PM ELECTRIC CONTAINER TESTER): This is a chronic condition which is inadequately controlled, not at goal of less than 7% Personally reviewed most recent A1c - Lab Results Component Value Date HGBA1C 9.5 10/28/2022 Personally reviewed POC blood sugar- Lab Results Component Value Date POCGLU 343 10/28/2022 not at goal 80-180 Medication- increase Soliqua 30 units daily, continue metformin 1000 mg twice daily, continue Jardiance 10 mg daily Monitor blood sugar daily Encouraged annual eye exam. last dilated eye exam was at all about eyes. Monofilament foot exam completed. Loss of sensation from shins down Loss of protective senses Treated with Gabapentin Urine microalbumin/creatinine ratio - at goal <30 treated with losartan, amlodipine, hydrochlorothiazide Personally reviewed CMP GFR- 106 Kidney function- normal B/P today- at goal of <140/90. continue amlodipine, hydrochlorothiazide, losartan Personally reviewed lipid panel. at Goal of less than 70. Continue rosuvastatin Assessment & Plan (07/19/2022 3:12 PM CDT): This is a chronic condition which is not at goal. Personally reviewed most recent A1c - Lab Results Component Value Date HGBA1C 9.3 07/19/2022 goal less than 7% Personally reviewed blood sugar- bs- 332 Lab Results Component Value Date GLUCOSE 375 (H) 04/27/2022 not at goal 80-180 Medication- Continue metformin 1000mg twice a day, jardiance 25 mg po daily,stop trulicity 1.5mg due to side effects. Start soliqua 15 units daily at dinner. Monitor blood sugar twice daily Encouraged annual eye exam. last dilated eye exam was at all about eyes. Monofilament foot exam completed- loss of protective senses. Treated with Gabapentin. No sensation from mid shins down. Urine microalbumin/creatinine ratio - at goal <30 not treated with NGUYỄN/ARB on amlodipine, hctz. Latest Reference Range & Units 12/01/21 07:36 Microalbumin, ur See Note: mg/dL 0.3 Microalbumin/creat ratio <30 mcg/mg creat 5 Creatinine, ur 20 - 320 mg/dL 55 Personally reviewed BUN, creatinine, GFR -106 Kidney function- normal B/P today- at goal. Goal is <140/90 . continue on amlodipine, hctz. Personally reviewed lipid panel. ldl-63. At Goal of less than 70. crestor ordered but reports not taking it Labs per [facility]. Assessment & Plan (06/03/2022 9:34 AM CDT): This is a chronic condition which is improving but not at goal. Personally reviewed most recent A1c - Lab Results Component Value Date HGBA1C 8.3 (H) 04/16/2022 goal less than 7% Personally reviewed blood sugar- bs- 204 Lab Results Component Value Date GLUCOSE 375 (H) 04/27/2022 not at goal 80-180 Medication- Continue metformin 1000mg twice a day, jardiance 25 mg po daily, Increase trulicity 1.5mg weekly. Denies history of pancreatitis. Encouraged to notify office for nausea, vomiting or abd pain. Monitor blood sugar daily alternating am/pm Encouraged annual eye exam. last dilated eye exam was at all about eyes. Monofilament foot exam completed- loss of protective senses. Treated with Gabapentin. No sensation from mid shins down. Urine microalbumin/creatinine ratio - at goal <30 not treated with NGUYỄN/ARB on amlodipine, hctz. Latest Reference Range & Units 12/01/21 07:36 Microalbumin, ur See Note: mg/dL 0.3 Microalbumin/creat ratio <30 mcg/mg creat 5 Creatinine, ur 20 - 320 mg/dL 55 Personally reviewed BUN, creatinine, GFR -106 Kidney function- normal B/P today- at goal. B/p- 128/78. Goal is <140/90 and as close to 120/80 as possible. continue on amlodipine, hctz. Personally reviewed lipid panel. ldl-63. At Goal of less than 70. crestor ordered but reports not taking it Labs per [facility]. Assessment & Plan (05/12/2022 11:37 AM CDT): This is a chronic condition which is improving but not at goal. Was on steroid for breathing issues. Personally reviewed most recent A1c - Lab Results Component Value Date HGBA1C 8.3 (H) 04/16/2022 goal less than 7% Personally reviewed blood sugar- Lab Results Component Value Date GLUCOSE 375 (H) 04/27/2022 not at goal 80-180 Medication- Continue metformin 1000mg twice a day, jardiance 25 mg po daily add trulicity 0.75mg weekly. Will increase as tolerated. Denies history of pancreatitis. Encouraged to notify office for nausea, vomiting or abd pain. Monitor blood sugar daily alternating am/pm Encouraged annual eye exam. last dilated eye exam was at all about eyes. Monofilament foot exam completed- loss of protective senses. Treated with Gabapentin. No sensation from mid shins down. Urine microalbumin/creatinine ratio - at goal <30 not treated with NGUYỄN/ARB on amlodipine, hctz. Latest Reference Range & Units 12/01/21 07:36 Microalbumin, ur See Note: mg/dL 0.3 Microalbumin/creat ratio <30 mcg/mg creat 5 Creatinine, ur 20 - 320 mg/dL 55 Personally reviewed BUN, creatinine, GFR -106 Kidney function- normal B/P today- at goal. B/p- 126/78. Goal is <140/90 and as close to 120/80 as possible. continue on amlodipine, hctz. Personally reviewed lipid panel. At Goal of less than 70. crestor ordered but reports not taking it Assessment & Plan (05/01/2022 11:25 PM CDT): Stressed importance of continued A1c control to minimize the life sciences director effects of diabetes. Bring accuchecks to office when instructed to do so. Check A1c about every 3-6 months. Take medication as prescribed. Get annual eye exam. Encouraged NGUYỄN/Statin if able to tolerate. Encouraged weight control and encouraged diabetic diet and exercise. Continue with gabapentin p.r.n. Assessment & Plan (12/20/2021 8:23 AM CDT): Stressed importance of continued A1c control to minimize the snf effects of diabetes. Bring accuchecks to office when instructed to do so. Check A1c about every 3-6 months. Take medication as prescribed. Get annual eye exam. Encouraged NGUYỄN/Statin if able to tolerate. Encouraged weight control and encouraged diabetic diet and exercise. A1c is improved but still not at goal. Will increase the Jardiance to 25 mg. Continue the metformin 1 g b.i.d.. Recheck labs in about 3-4 months. Assessment & Plan (06/22/2021 10:22 AM CDT): Stressed importance of continued A1c control to minimize the life sciences director effects of diabetes. Bring accuchecks to office when instructed to do so. Check A1c about every 3-6 months. Take medication as prescribed. Get annual eye exam. Encouraged NGUYỄN/Statin if able to tolerate. Encouraged weight control and encouraged diabetic diet and exercise. Stressed importance of tight control of his DM to avoid progression of the neuropathy Assessment & Plan (02/26/2021 12:00 AM CDT): Stressed importance of continued A1c control to minimize the life sciences director effects of diabetes. Bring accuchecks to office when instructed to do so. Check A1c about every 3-6 months. Take medication as prescribed. Get annual eye exam. Encouraged NGUYỄN/Statin if able to tolerate. Encouraged weight control and encouraged diabetic diet and exercise. Assessment & Plan (11/24/2020 11:02 AM ELECTRIC CONTAINER TESTER): Uncontrolled. On 10/29/2020 the A1c was 10.6. Assessment & Plan (10/25/2020 5:08 PM ELECTRIC CONTAINER TESTER): Need to reassess DM control and restart treatment. Assessment & Plan (02/27/2019 7:58 PM CDT): Diabetes is not well controlled. Stressed importance of continued A1c control to minimize the life sciences director effects of diabetes. Bring accuchecks to office when instructed to do so. Check A1c about every 3-6 months. Take medication as prescribed. Get annual eye exam. Encouraged NGUYỄN/Statin if able to tolerate. Encouraged weight control and encouraged diabetic diet and exercise. Start jardiance 10mg. Watch renal function. Reviewed risks, benefit, alternatives, side effects and proper use. Continue metformin. Start statin Start ARB Monitor closely. Assessment & Plan (02/01/2019 12:48 PM CDT): Non-compliance so unsure of A1c but FBS show uncontrolled. Will check labs. Restart metformin. Followup in one week to review labs and determine best plan. Will then address adding Nguyễn/Statin etc. Stressed importance of continued A1c control to minimize the snf effects of diabetes. Bring accuchecks to office when instructed to do so. Check A1c about every 3-6 months. Take medication as prescribed. Get annual eye exam. Encouraged NGUYỄN/Statin if able to tolerate. Encouraged weight control and encouraged diabetic diet and exercise. Nicotine dependence, unspecified, uncomplicated 08/24/2016 Assessment & Plan (11/24/2020 11:04 AM ELECTRIC CONTAINER TESTER): Down to 2 cigars daily have was advised strongly to totally stop. Assessment & Plan (10/25/2020 5:08 PM ELECTRIC CONTAINER TESTER): Stop cigar/nicotine use Resolved Problems Problem Noted Date Diagnosed Date Resolved Date Diabetic ketoacidosis withou t coma associated with type 2 diabetes mellitus 12/23/2024 03/17/2025 Laceration of left leg 09/08/202401/01 Assessment & Plan (09/08/2024 9:07 PM ELECTRIC CONTAINER TESTER): Less leg laceration is healing well. Well-approximated edges. Five sutures were removed without difficulty. The area was covered as I suspect it may in his clothes. Keep the area clean. Call for any s/s dehiscence of infection BMI 33.0-33.9,adult 07/21/2024 08/27/20 Assessment & Plan (07/21/2024 4:11 PM CDT): Discussed the patient's BMI. The BMI is above average. BMI management plan is completed. BMI Follow-up includes: nutrition counseling, exercise counseling and education provided. History of stroke 07/21/2024 07/21/2024 Class 1 obesity due to exces s calories with serious comorbidity and body mass index (BMI) of 33.0 to 33.9 in adult 01/09/2023 07/21/2024 Assessment & Plan (07/08/2024 9:40 AM CDT): This is a chronic condition which continues 5 lbs. Weight gain since last office visit Encouraged healthy eating which includes a low carb diet. Avoiding processed foods, sweets and fried foods. Encouraged 30 minutes of walking at least 5 days per week Discussed that exercise can be broken down into small sessions- for example 2- 15 minutes sessions or 3- 10 minutes sessions. Assessment & Plan (02/08/2024 5:53 AM CDT): This is a chronic condition which continues 11 lbs. Weight loss since last office visit Encouraged healthy eating which includes a low carb diet. Avoiding processed foods, sweets and fried foods. Encouraged 30 minutes of walking at least 5 days per week Discussed that exercise can be broken down into small sessions- for example 2- 15 minutes sessions or 3- 10 minutes sessions. Assessment & Plan (02/08/2024 5:53 AM CDT): >>ASSESSMENT AND PLAN FOR CLASS 1 OBESITY DUE TO EXCESS CALORIES WITH SERIOUS COMORBIDITY AND BODY MASS INDEX (BMI) OF 32.0 TO 32.9 IN ADULT WRITTEN ON 11/25/2023 10:14 PM BY JON HOWARD PA Discussed the patient's BMI. The BMI is above average. BMI management plan is completed. BMI Follow-up includes: nutrition counseling, exercise counseling and education provided. >>ASSESSMENT AND PLAN FOR BMI 34.0-34.9,ADULT WRITTEN ON 11/25/2023 10:14 PM BY JON HOWARD PA Discussed the patient's BMI. The BMI is above average. BMI management plan is completed. BMI Follow-up includes: nutrition counseling, exercise counseling and education provided. Assessment & Plan (02/08/2024 5:53 AM CDT): >>ASSESSMENT AND PLAN FOR CLASS 1 OBESITY DUE TO EXCESS CALORIES WITH SERIOUS COMORBIDITY AND BODY MASS INDEX (BMI) OF 32.0 TO 32.9 IN ADULT WRITTEN ON 01/09/2023 8:26 AM BY ELMIRA CAVAZOS MA Discussed the patient's BMI. The BMI is above average. BMI management plan is completed. BMI Follow-up includes: nutrition counseling, exercise counseling and education provided. >>ASSESSMENT AND PLAN FOR BMI 34.0-34.9,ADULT WRITTEN ON 01/09/2023 8:26 AM BY ELMIRA CAVAZOS MA Discussed the patient's BMI. The BMI is above average. BMI management plan is completed. BMI Follow-up includes: nutrition counseling, exercise counseling and education provided. Hyperkalemia 05/01/2022 01/09/2023 Assessment & Plan (05/01/2022 11:26 PM CDT): Check labs Malodorous urine 05/01/2022 01/09/2023 Assessment & Plan (05/01/2022 11:26 PM CDT): Check urine as patient states it has an odor Chest pain 04/15/2022 11/02/2023 Assessment & Plan (05/01/2022 11:25 PM CDT): Patient's was discharged stable up with his chest pain. He was instructed to contact Cardiology to finish the outpatient workup. Strongly encouraged him to make this call and set this appointment. He verbalizes the importance of doing this. Community acquired pneumonia 04/15/2022 01/09/2023 Assessment & Plan (05/01/2022 11:26 PM CDT): Complete antibiotics and steroid. He states he feels as though he is breathing a little better. Continue to monitor closely and if symptoms return he is to follow up immediately. Obesity (BMI 30-39.9) 12/20/20212022 Assessment & Plan (05/01/2022 11:25 PM CDT): Discussed the patient's BMI. The BMI is above average. BMI management plan is completed. BMI Follow-up includes: nutrition counseling, exercise counseling and education provided. Assessment & Plan (12/20/2021 7:40 AM CDT): Obesity is unchanged. Discussed the patient's BMI. The BMI is above average. BMI management plan is completed. BMI Follow-up includes: nutrition counseling, exercise counseling and education provided. BMI 31.0-31.9,adult 12/20/2021 01/10/20 Assessment & Plan (05/01/2022 11:25 PM CDT): Discussed the patient's BMI. The BMI is above average. BMI management plan is completed. BMI Follow-up includes: nutrition counseling, exercise counseling and education provided. Assessment & Plan (12/20/2021 7:40 AM CDT): Obesity is unchanged. Discussed the patient's BMI. The BMI is above average. BMI management plan is completed. BMI Follow-up includes: nutrition counseling, exercise counseling and education provided. Class 1 obesity due to exces s calories with serious comorbidity and body mass index (BMI) of 32.0 to 32.9 in adult 11/23/2021 02/02/2025 Assessment & Plan (01/29/2025 8:23 AM CDT): >>ASSESSMENT AND PLAN FOR BMI 34.0-34.9,ADULT WRITTEN ON 09/08/2024 9:46 PM BY JON HOWARD PA Nutrition Counseling and education provided Assessment & Plan (01/20/2025 1:08 PM CDT): Discussed the patient's BMI. The BMI is above average. BMI management plan is completed. BMI Follow-up includes: nutrition counseling, exercise counseling and education provided. Assessment & Plan (11/23/2021 7:26 AM ELECTRIC CONTAINER TESTER): Obesity is unchanged. Discussed the patient's BMI. The BMI is above average. BMI management plan is completed. BMI Follow-up includes: nutrition counseling, exercise counseling and education provided. Annual physical exam 11/23/2021 022 Assessment & Plan (11/25/2021 10:04 PM ELECTRIC CONTAINER TESTER): Encouraged healthy lifestyle, good nutrition and exercise. Encouraged Calcium and Vitamin D and weight bearing exercise for bone health. Reviewed immunizations Reviewed age appropirate screenings. Need for influenza vaccination 08/28/2021 12/20/2021 Assessment & Plan (08/28/2021 12:53 PM ELECTRIC CONTAINER TESTER): Flu updated in office today Obesity (BMI 30-39.9) 02/26/20212021 Assessment & Plan (11/23/2021 7:26 AM ELECTRIC CONTAINER TESTER): Obesity is unchanged. Discussed the patient's BMI. The BMI is above average. BMI management plan is completed. BMI Follow-up includes: nutrition counseling, exercise counseling and education provided. Assessment & Plan (07/21/2021 7:17 AM CDT): Obesity is unchanged. Discussed the patient's BMI. The BMI is above average. BMI management plan is completed. BMI Follow-up includes: nutrition counseling, exercise counseling and education provided. Assessment & Plan (06/22/2021 7:48 AM CDT): Obesity is unchanged. Discussed the patient's BMI. The BMI is above average. BMI management plan is completed. BMI Follow-up includes: nutrition counseling, exercise counseling and education provided. Assessment & Plan (02/26/2021 12:03 AM CDT): Obesity is unchanged. Discussed the patient's BMI. The BMI is above average. BMI management plan is completed. BMI Follow-up includes: nutrition counseling, exercise counseling and education provided. Prostate cancer screening 10/25/2020 Assessment & Plan (10/25/2020 6:32 PM ELECTRIC CONTAINER TESTER): Check labs BMI 34.0-34.9,adult 10/21/2020 02/17/20 Assessment & Plan (10/21/2020 8:36 AM ELECTRIC CONTAINER TESTER): Obesity is unchanged. Discussed the patient's BMI. The BMI is above average. BMI management plan is completed. BMI Follow-up includes: nutrition counseling, exercise counseling and education provided. Medicare annual wellness visit, initial 02/18/2019 11/18/2020 Assessment & Plan (10/25/2020 6:31 PM ELECTRIC CONTAINER TESTER): Encouraged healthy lifestyle, good nutrition and exercise. Encouraged Calcium and Vitamin D and weight bearing exercise for bone health. Reviewed immunizations Reviewed age appropirate screenings. Assessment & Plan (02/27/2019 7:59 PM CDT): Encouraged healthy lifestyle, good nutrition and exercise. Encouraged Calcium and Vitamin D and weight bearing exercise for bone health. Reviewed immunizations Reviewed age appropirate screenings. Has had mutliple EKGs in the last few years with his afib so baseline not needed. Smokers' cough 02/01/2019 01/09/2023 Assessment & Plan (11/25/2021 10:04 PM ELECTRIC CONTAINER TESTER): Persistent cough related to long-time smoking asthma and COPD Assessment & Plan (02/27/2019 8:06 PM CDT): Awaiting recommendations from Pulmonary. Stop smoking Assessment & Plan (02/01/2019 12:53 PM CDT): Significant cough as the result of smoking and untreated/undertreated asthma and COPD. See both asthma and COPD for plan and followup with Pulmonary Other fatigue 02/01/2019 11/18/2020 Assessment & Plan (10/25/2020 6:31 PM ELECTRIC CONTAINER TESTER): Probably multifactorial. Check labs and followup to re-evaluate Assessment & Plan (02/27/2019 8:02 PM CDT): Probably multifactorial including uncontrolled DM/HTN, COPD, History of [place] and alcoholism. Continue to monitor Assessment & Plan (02/01/2019 1:08 PM CDT): Probably multifactorial. Check labs and followup to re-evaluate BMI 34.0-34.9,adult 01/31/2019 10/21/19 21 Assessment & Plan (02/18/2019 5:07 PM CDT): Obesity is unchanged. Discussed the patient's BMI. The BMI is above average; BMI management plan is completed. General weight loss/lifestyle modification strategies discussed (elicit support from others; identify saboteurs; non-food rewards, etc). Encouraged increased exercise. Assessment & Plan (02/01/2019 12:57 PM CDT): Obesity is unchanged. Discussed the patient's BMI. The BMI is above average; BMI management plan is completed. General weight loss/lifestyle modification strategies discussed (elicit support from others; identify saboteurs; non-food rewards, etc). Cigarette smoker 01/30/2019 02/01/2019 Severe asthma 01/30/2019 01/09/2023 Assessment & Plan (11/23/2021 8:08 AM ELECTRIC CONTAINER TESTER): Needs to followup with Dr. Romero. Still wheezing in all feliz. Assessment & Plan (10/25/2020 6:36 PM ELECTRIC CONTAINER TESTER): This is a significant, separately identifiable problem that was evaluated and managed on the same day as the wellness exam Restart gem. Reviewed risks, benefit, alternatives, side effects and proper use. Followup with Pulmonary Assessment & Plan (02/27/2019 8:06 PM CDT): See COPD. Caution with BB. Assessment & Plan (02/01/2019 12:51 PM CDT): Asthma is worse/untreated. Stop smoking. Start Symbicort/Proair Singular to pharmacy. Followup with Pulm Thoracic vertebral fracture 01/30/2019 01/01/2025 Diabetes mellitus type 2, un controlled, with complications 01/30/2019 05/12/2022 Assessment & Plan (11/23/2021 8:11 AM ELECTRIC CONTAINER TESTER): Stressed importance of continued A1c control to minimize the life sciences director effects of diabetes. Bring accuchecks to office when instructed to do so. Check A1c about every 3-6 months. Take medication as prescribed. Get annual eye exam. Encouraged NGUYỄN/Statin if able to tolerate. Encouraged weight control and encouraged diabetic diet and exercise. Will probably need to increase the Jardiance to 25mg but will first have to get labs. Continue Metformin 1gm bid Assessment & Plan (08/28/2021 12:51 PM ELECTRIC CONTAINER TESTER): Stressed importance of continued A1c control to minimize the snf effects of diabetes. Bring accuchecks to office when instructed to do so. Check A1c about every 3-6 months. Take medication as prescribed. Get annual eye exam. Encouraged NGUYỄN/Statin if able to tolerate. Encouraged weight control and encouraged diabetic diet and exercise. A1c is out of control. States he stop taking the metformin a week or so ago willing to start the Jardiance 10 mg.Reviewed risks, benefit, alternatives, side effects and proper use. Continue to monitor labs closely. Assessment & Plan (02/26/2021 12:03 AM CDT): Stressed importance of continued A1c control to minimize the snf effects of diabetes. Bring accuchecks to office when instructed to do so. Check A1c about every 3-6 months. Take medication as prescribed. Get annual eye exam. Encouraged NGUYỄN/Statin if able to tolerate. Encouraged weight control and encouraged diabetic diet and exercise. Due for labs to be able to monitor control Assessment & Plan (11/18/2020 1:49 PM ELECTRIC CONTAINER TESTER): Stressed importance of continued A1c control to minimize the snf effects of diabetes. Bring accuchecks to office when instructed to do so. Check A1c about every 3-6 months. Take medication as prescribed. Get annual eye exam. Encouraged NGUYỄN/Statin if able to tolerate. Encouraged weight control and encouraged diabetic diet and exercise. Start metformin 1gm bid. Recheck A1c at the beginning of January to see if needs more medication. Continue to monitor diet and increase exercise/activity Assessment & Plan (10/25/2020 6:36 PM ELECTRIC CONTAINER TESTER): This is a significant, separately identifiable problem that was evaluated and managed on the same day as the wellness exam Stressed importance of continued A1c control to minimize the life sciences director effects of diabetes. Bring accuchecks to office when instructed to do so. Check A1c about every 3-6 months. Take medication as prescribed. Get annual eye exam. Encouraged NGUYỄN/Statin if able to tolerate. Encouraged weight control and encouraged diabetic diet and exercise. Check labs and followup to discuss plan for treatment. Start metformin 1gm bid. Assessment & Plan (02/27/2019 8:03 PM CDT): This is a significant, separately identifiable problem that was evaluated and managed on the same day as the wellness exam Diabetes is not well controlled. Stressed importance of continued A1c control to minimize the life sciences director effects of diabetes. Bring accuchecks to office when instructed to do so. Check A1c about every 3-6 months. Take medication as prescribed. Get annual eye exam. Encouraged NGUYỄN/Statin if able to tolerate. Encouraged weight control and encouraged diabetic diet and exercise. Start jardiance 10mg. Watch renal function. Reviewed risks, benefit, alternatives, side effects and proper use. Continue metformin. Start statin Start ARB Monitor closely. Assessment & Plan (02/01/2019 12:57 PM CDT): Non-compliance so unsure of A1c but FBS show uncontrolled. Will check labs. Restart metformin. Followup in one week to review labs and determine best plan. Will then address adding Nguyễn/Statin etc. Stressed importance of continued A1c control to minimize the snf effects of diabetes. Bring accuchecks to office when instructed to do so. Check A1c about every 3-6 months. Take medication as prescribed. Get annual eye exam. Encouraged NGUYỄN/Statin if able to tolerate. Encouraged weight control and encouraged diabetic diet and exercise. Essential (primary) hypertension 01/30/2019 03/17/2025 Assessment & Plan (07/21/2024 4:10 PM CDT): [...] amlodipine. Assessment & Plan (10/28/2022 3:15 PM ELECTRIC CONTAINER TESTER): This is a chronic condition which is [...] office. Assessment & Plan (11/23/2021 8:12 AM ELECTRIC CONTAINER TESTER): Bp is stable/in acceptable range for any co-morbidities. Encouraged to limit sodium intake and exercise for weight control. Assessment & Plan (08/28/2021 12:52 PM ELECTRIC CONTAINER TESTER): Bp is stable/in acceptable range for any [...] of continued A1c control to minimize the life sciences director effects of diabetes. Bring accuchecks to office when instructed to do so. Check A1c about every 3-6 months. Take medication as prescribed. Get annual eye exam. Encouraged NGUYỄN/Statin if able to tolerate. Encouraged weight control and encouraged diabetic diet and exercise. Continue losartan 100 and metformin 1gm bid Assessment & Plan (02/26/2021 12:02 AM CDT): Bp is stable/in acceptable range for any co-morbidities. Encouraged to limit sodium intake and exercise for weight control. Continue per cardio Assessment & Plan (11/24/2020 11:03 AM ELECTRIC CONTAINER TESTER): Salt restriction. Losartan. Blood pressure 120/80. Assessment & Plan (11/18/2020 1:48 PM ELECTRIC CONTAINER TESTER): Bp is still elevated acceptable range for any co-morbidities. Encouraged to limit sodium intake and exercise for weight control. Increase the losartan to 100mg daily. Will reassess in 3 months. Has appt with Cardio who will also check his bp. Assessment & Plan (10/25/2020 6:22 PM ELECTRIC CONTAINER TESTER): This is a significant, separately identifiable problem [...] next visit for renal protection with DM Diabetic polyneuropathy asso ciated with type 2 diabetes mellitus ([facility]) 02/22/2018 05/12/2022 Precordial chest pain 10/28/20162023 Assessment & Plan (11/24/2020 11:05 AM ELECTRIC CONTAINER TESTER): Chest pains off and on. In the left lateral chest. Mostly at rest. Atypical for angina. Dobutamine Myoview stress test December 2014 was negative for ischemia. Will repeat the Lexiscan stress test in view of the symptoms and multiple risk factors for coronary artery disease. He will not be able to do a walking stress tests on account of his poor exercise tolerance. Racing heart beat 10/28/2016 10/25/2020 Allergic rhinitis 08/24/2016 08/23/2019 Overview (03/28/2019): continue Singulair Fracture of rib 09/29/2015 01/01/2025 Encounters Date Type Department Care Team Description 05/19/2025 Telephone [facility] Diabetes Endocrine Care at [address] [place] [id number] Chelsie Boyle, EQUIPMENT INSPECTOR 05/19/2025 Telephone [facility] Diabetes Endocrine Care at [address] [place] [address] Chelsie Boyle, EQUIPMENT INSPECTOR 05/15/2025 11:30 AM CDT Office Visit [facility] Pulmonology [address] [place] [address] Rikki Romero MD Moderate persistent asthma without complication (Primary Dx); Chronic obstructive pulmonary disease, unspecified COPD type (HCC); Seasonal allergic rhinitis due to pollen; Nicotine dependence, cigarettes, in remission; Abnormal CT of the chest; Dyspnea on exertion 05/12/2025 8:45 AM CDT - 05/12/2025 11:59 PM CDT Hospital Encounter [facility] Respiratory Therapy [address] [place] [id number] Dyspnea on exertion; Shortness of breath Discharge Disposition: Discharge to home or self care 02/26/2025 8:30 AM CDT Office Visit [facility] Family Medicine [address] [place] [address] Jon Howard PA Medicare annual wellness visit, subsequent (Primary Dx); Type 2 diabetes mellitus without complication, with long-term current use of insulin (HCC); Mixed diabetic hyperlipidemia associated with type 2 diabetes mellitus (HCC); Hypertension associated with diabetes (HCC); Moderate persistent asthma without complication; Chronic obstructive pulmonary disease, unspecified COPD type (HCC); Iron deficiency anemia, unspecified iron deficiency anemia type; Paroxysmal atrial fibrillation (HCC); Seasonal allergic rhinitis due to pollen; Moderate episode of recurrent major depressive disorder (HCC); Normocytic hypochromic anemia; Fatigue, unspecified type; Obesity (BMI 30.0-34.9); BMI 33.0-33.9,adult 02/18/2025 Telephone [facility] [address] [place] [address] Jon Howard PA from Last 3 Months Immunizations Immunization Administration Dates Next Due DTaP 02/09/2015 Influenza, Quadrivalent, Spl it, Preservative Free, Intramuscular 09/12/2023,07/21/2021,07/24/2019,08/03,09/13/2016,09/07/2016 Influenza, Trivalent, Preser vative Free, Intramuscular 07/07/2015 Influenza, Unspecified 10/02/2024(Deferr ed: Patient Refused),09/12/2023,11/02/2022(Deferre d: Patient Refused),11/02/2021(Deferred: Patient Refused) Pfizer SARS-CoV-2 Monovalent Vaccination (12+ Yrs) PURPLE 09/21/2021,01/16/2021,12/19/2020 Pneumococcal Polysaccharide PPV23 01/08/2015 RSV Vaccine, Pref, Recombina nt, Subunit, Adjuvanted, PF, IM (Arexvy) 09/12/2023,09/12/2023 Tdap 02/09/2015 Surgical History Surgery Date Site/Laterality Comments VASECTOMY CHOLECYSTECTOMY COLONOSCOPY PARACENTESIS Medical History Medical History Date Comments Moderate persistent asthma without complication 08/23/2019 COPD (chronic obstructive pulmonary disease) Coronary artery disease Diabetes mellitus (HCC) Diabetic polyneuropathy asso ciated with type 2 diabetes mellitus (HCC) 02/22/2018 GERD (gastroesophageal reflux disease) Chronic diarrhea Hypertension Hyperlipidemia Atrial fibrillation (HCC) Aortic aneurysm Anxiety Laceration of left leg 09/08/2024 Thoracic vertebral fracture (HCC) 01/30/2019 Fracture of rib 09/29/2015 Family History Medical History Relation Name Comments Asthma Father COPD Father Prostate cancer Father Asthma Mother COPD Mother Diabetes Mother Heart disease Mother Relation Name Status Comments Father Mother Social History Tobacco Use Types Packs/Day Years Used Date Smoking Tobacco: Former Cigarettes 0.2 42 0 01/30/1979 - 01/30/2021 Cigars Smokeless Tobacco: Never Tobacco Cessation:Counseling Given: Not Answered Alcohol Use Standard Drinks/Week Comments Yes 0 (1 standard drink = 0.6 oz pur e alcohol) [facility] Utilities Answer Date Recorded In [...] often do you attend chur ch or scientologist services? Never 12/24/2024 Do you belong to any clubs o r organizations such as pentecostal groups, unions, fraternal or athletic groups, or [...] any time in the past 12 m [facility], were you homeless or living in a senior care (including now)? No 12/24/2024 Personal Safety Answer Date Recorded Have you ever been in or are you currently in a harmful physical or emotional relationship or is someone making you feel afraid or unsafe? 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 Gender Identity Not on file Sexual Orientation Not on file Occupation Industry Job Start Date Job End Date Disablilty Not on file Not on file Not on file Obstetrics History Last Filed Vital Signs Vital Sign Reading Time Taken Comments Blood Pressure 113/72 05/15/2025 11:27 AM CDT Pulse 78 05/15/2025 11:27 AM CDT Temperature 36.8 C (98.2 F) 05/15/2025 11:27 AM CDT Respiratory Rate 20 05/15/2025 11:27 AM CDT Oxygen Saturation 98% 05/15/2025 11:27 AM CDT Inhaled Oxygen Concentration - - Weight 110 kg (242 lb 6.4 oz) 05/15/2025 11:27 A M CDT Height 177.8 cm (5' 10) 05/15/2025 11:27 AM CDT Body Mass Index 34.78 05/15/2025 11:27 AM CDT Plan of Treatment Health Maintenance Due Date Last Done Comments Hepatitis B Screening 1980 Zoster Vaccine (1 of 2) 2012 Pneumococcal vaccine <65 (2 of 2 - PCV) 01/09/2016 01/08/2015 Covid-19 Vaccine (5 - 2023-2 5 season) 2024 09/12/2023, 09/21/2021, 01/16/2021, Additional history exists DTaP/Tdap/Td Vaccine (3 - Td or Tdap) 02/09/2025 02/09/2015, 02/09/2015 Influenza Vaccine (#1) 2025 , 09/12/2023, 07/21/2021, Additional history exists Hemoglobin A1C 06/25/2025 12/23/2024, 03/0 04/2025, 06/29/2024, Additional history exists Foot Exam 07/08/2025 07/08/2024, 050 05/2024, 10/28/2022, Additional history exists Lipid Panel 12/06/2025 12/06/2024, 06/03, 06/30/2024, Additional history exists eGFR 01/22/2026 01/22/2025, 12/31, 01/13/2025, Additional history exists Dilated Eye Exam 01/24/2026 01/24/2025, 04/27/2022 Albumin Creatinine Ratio, Urine 01/29/2026 01/29/2025, 12/06/2024, 10/27/2023, Additional history exists Depression Screening 02/26/2026 02/26/2025, 01/20/2025, 08/27/2024, Additional history exists Regular Well Visit/Exam 18-64 02/26/2026, 11/02/2023, 01/09/2023, Additional history exists Prostate Cancer Screening-PSA 12/06/2026, 10/27/2023, 10/29/2020, Additional history exists Colon Cancer Screening-Colonoscopy 06/13/2034 06/13/2024 Hepatitis C Screening Completed 03/07/2018 Colon Cancer Screening-CT Colonography Discontinued 06/13/2024 Colon Cancer Screening-DNA Stool Discontinued 06/13/20 Colon Cancer Screening-FIT Discontinued 06/13, 09/16/2013, 09/15/2013, Additional history exists Colon Cancer Screening-Sigmoidoscopy Discontinued 06/13/2024 Goals Goal Patient Goal Type Associated Problems Recent Progress Patient-Stated? Author REX General Goal - Patient is knowledgeable about condition when worsening and how to respond ACO Care Management On track(2023 4:22 PM ELECTRIC CONTAINER TESTER) Keenan Acevedo, RN Note: Problem: Knowledge deficit related to [...] take, when to call CM or provider. Procedures Procedure Name Priority Date/Time Associated Diagnosis Comments PULMONARY FUNCTION TEST (PFT) Routine 05/12/2025 9:52 AM CDT Dyspnea on exertion Shortness of breath ALBUMIN CREATININE RATIO, URINE Routine 01/29/2025 9:11 AM CDT Type 2 diabetes mellitus with diabetic polyneuropathy, without long-term current use of insulin (HCC) HM DIABETES EYE EXAM Routine 01/24/2025 7:47 AM CDT EGFR Routine 01/22/2025 8:55 AM CDT Anemia, unspecified type HEMOGLOBIN A1C STAT 12/23/2024 8:27 AM CDT PSA SCREEN Routine 12/06/2024 8:52 AM ELECTRIC CONTAINER TESTER Prostate cancer screening Annual physical exam LIPID PANEL Routine 12/06/2024 8:49 AM ELECTRIC CONTAINER TESTER Type 2 diabetes mellitus with hyperlipidemia (HCC) Annual physical exam COLONOSCOPY 06/13/2024 9:06 AM CDT HEPATITIS PANEL, ACUTE Routine 03/07/2018 5:41 AM CDT from Last 3 Months or Most Recently Relevant to Health Maintenance Results * (ABNORMAL) Pulmonary Function Test - (05/12/2025 9:52 AM CDT) FVC POST 4.50 3.56 - 5.85 L [facility] FEV1 POST 2.71 2.69 - 4.47 L [facility] [id number] 60.19(A) 64.61 - 87.67 % [facility] PZV73-89% POST 1.35(A) 1.39 - 4.99 L/s [facility] PEF POST 5.17(A) 6.57 - 10.55 L/s [facility] DLCOc SB 23.43 22.68 - 36.53 ml/(min*mm Hg) [facility] DLCO/VA PRE 4.35 2.90 - 5.18 ml/(min*mm Hg*L) [facility] VA 5.39(A) 7.18 - 7.18 L [facility] TLC PRE 6.53 6.18 - 8.48 L [facility] VC PRE 3.21(A) 3.69 - 5.54 L [facility] IC PRE 2.35(A) 3.42 - 3.42 L [facility] FRC PL PRE 4.18 2.70 - 4.67 L [facility] ERV PRE 0.86(A) 1.19 - 1.19 L [facility] RV PRE 3.32(A) 1.82 - 3.17 L [facility] VTG 4.21 L [facility] RAW PRE 2.75(A) 3.06 - 3.06 cmH2O*s/L [facility] FVC PRE 3.21(A) 3.56 - 5.85 L [facility] FEV1 PRE 2.18(A) 2.69 - 4.47 L [facility] [id number] 68.10 64.61 - 87.67 % [facility] PUL85-11% PRE 1.50 1.39 - 4.99 L/s [facility] PEF PRE 4.50(A) 6.57 - 10.55 L/s [facility] Anatomical Region Laterality Modality PFT 05/12/2025 9:00 AM CDT Impressions 05/15/2025 9:19 AM CDT 1. Pre bronchodilator spirometry shows nonspecific ventilatory defect. Post-bronchodilator spirometry demonstrates mild obstructive defect. 2. There is significant bronchodilator response. 3. Lung volumes demonstrate mild gas trapping. 4. Normal diffusion capacity. 5. Ambulatory oximetry study was performed. Patient did not require supplemental oxygen with exertion. Clinical correlation is advised. Electronically signed by Gideon Baker DO Pulmonary & Critical Care Narrative 05/15/2025 9:19 AM CDT PULMONARY FUNCTION TESTS Daniele Puckett Horace 64 y.o. 05/15/2025 INTERPRETATION Please see technologist's comments mentioned in attached results report. SPIROMETRY: Pre bronchodilator FEV1 is 61 % predicted, FVC is 68 % predicted, FEV1/FVC is 68 Bronchodilator response: There is significant bronchodilator response Inspection of the patient's flow-volume loops suggestive of expiratory airflow obstruction. LUNG VOLUMES: Lung volumes by body plethysmography: TLC is 89 % predicted, RV is 133 % predicted DLCO: Unadjusted for hemoglobin and carboxyhemoglobin DLCO is 79 % predicted us Rikki Romero MD PFT ORDERABLES Final Result * Albumin Creatinine Ratio, Urine (01/29/2025 9:11 AM CDT) Albumin Ur <12.0 mg/L Comment: Interpretive Data No reference range established. Current interpretive data was last revised 2019. Testing performed by: [address] [address] Creatinine Ur 63.9 mg/dL JESS Comment: Interpretive Data No reference range established. Current interpretive data was last revised 2019. Testing performed by: [address] [address] Albumin Creatinine Ratio, Ur <19 1 - 29 mg/g JESS Comment:Testing performed by : [address] [address] Urine 01/29/2025 9:11 AM CDT 01/29/2025 1:06 PM CDT Chelsie Boyle NP LAB URINE ORDERABLES Final Resu lt JESS [address] Department [place] [address] * (ABNORMAL) DIABETES EYE EXAM (01/24/2025 7:47 AM CDT) SCRIBED HM DIABETIC DILATED EYE EXAM Abnormal Comment:Evidence of diabetic retinopathy Historical Provider HEALTH MAINTENANCE Edited Result - Final * eGFR (01/22/2025 8:55 AM CDT) eGFR >90 >=60 mL/min/1. 73 m2 Comment: Interpretive Data Reference Interval Normal >/= 90 mL/min/1.73m2 Mildly decreased* 60 - 89 mL/min/1.73m2 Mildly to moderately decreased 45 - 59 mL/min/1.73m2 Moderately to severely decreased 30 - 44 mL/min/1.73m2 Severely decreased 15 - 29 mL/min/1.73m2 Kidney Failure < 15 mL/min/1.73m2 *Relative to young adult level Estimated glomerular filtration rate is determined by the 2020 CKD-EPI equation recommended by the National Kidney Foundation (A Unifying Approach to GFR Estimation: Recommendations of the NKF-ASK Task Force on Reassessing the Inclusion of Race in Diagnosing Kidney Disease, JASN 2020). The CKD-EPI equation should not be used for patients with unstable renal function and has not been validated in children and those over 70. Current interpretive data was last reviewed 2021. Blood 01/22/2025 8:55 AM CDT 01/22/2025 9:19 AM CDT Jon HAILE LAB BLOOD ORDERABLES Final Result JESS [address] [facility] Department [place] [address] * (ABNORMAL) Hemoglobin A1c (12/23/2024 8:27 AM CDT) Hgb A1C 11.0(H) 4.0 - 5.6 % Estimated Average Glucose 269 mg/dL JESS BENITEZ Comment: The ADA recommends reporting an estimated Average Glucose (eAG) with all Hemoglobin A1c results using the equation derived from a study of 507 normal and diabetic adults. Minority populations were underrepresented and children were not included. (Diabetes Care 31:6011-8847, 2008). The eAG is not equivalent to a fasting glucose. Blood 12/23/2024 8:27 AM CDT 12/23/2024 8:33 AM CDT Emiliano Osborne DO LAB BLOOD ORDERABLES Final Res ult JESS [facility] [facility] Department [place] [address] * PSA screen (12/06/2024 8:52 AM ELECTRIC CONTAINER TESTER) PSA 0.24 < OR = 4.00 ng/mL [facility] [employer] [facility] denisea Comment: The total PSA value from this assay system is standardized against the WHO standard. The test result will be approximately 20% lower when compared to the equimolar-standardized total PSA (Lakeshia Millington). Comparison of serial PSA results should be interpreted with this fact in mind. This test was performed using the Siemens chemiluminescent method. Values obtained from different assay methods cannot be used interchangeably. PSA levels, regardless of value, should not be interpreted as absolute evidence of the presence or absence of disease. Blood 12/06/2024 8:52 AM ELECTRIC CONTAINER TESTER 12/06/2024 8:53 AM ELECTRIC CONTAINER TESTER Narrative [facility] - 12/07/2024 2:37 AM ELECTRIC CONTAINER TESTER FASTING:YES FASTING: YES Jon HAILE LAB BLOOD ORDERABLES Final Result Performing Organization Address City/[facility] Co de Phone Number [facility] [address] [place] [address] * Lipid panel (12/06/2024 8:49 AM ELECTRIC CONTAINER TESTER) Cholesterol 123 <200 mg/dL [facility] HDL 61 > OR = 40 mg/dL [facility] Triglycerides 92 <150 mg/dL [facility] LDL 44 mg/dL (calc) [facility] Comment: Reference range: <100 Desirable range <100 mg/dL for primary prevention; <70 mg/dL for patients with CHD or diabetic patients with > or = 2 CHD risk factors. LDL-C is now calculated using the Nhi calculation, which is a validated novel method providing better accuracy than the Friedewald equation in the estimation of LDL-C. William SS et al. MAIKEL. 2013;310(19): 6985-4641 (http://education.Adsame/faq/BLM006) Chol/HDL ratio 2.0 <5.0 (calc) [facility] Non-HDL, (LDL+VLDL) 62 <130 mg/dL (calc) [facility] Comment: For patients with diabetes plus 1 major ASCVD risk factor, treating to a non-HDL-C goal of <100 mg/dL (LDL-C of <70 mg/dL) is considered a therapeutic option. Blood 12/06/2024 8:49 AM ELECTRIC CONTAINER TESTER 12/06/2024 8:51 AM ELECTRIC CONTAINER TESTER Narrative [facility] - 12/06/2024 10:49 PM ELECTRIC CONTAINER TESTER FASTING:YES FASTING: YES Jon HAILE LAB BLOOD ORDERABLES Final Result [facility] [address] [place] [address] * Colonoscopy (06/13/2024 9:06 AM CDT) Anatomical Region Laterality Modality Other Narrative Procedure Note Albino Calabrese MD - 06/13/2024 9:06 AM CDT [facility] END[facility]COPY Patient Name: Daniele Vu Procedure Date: 06/13/2024 9:06 AM Date of : 1960 Admit Type: Outpatient Age: 63 Gender: Male Attending MD: Albino Calabrese M.D. Room: [facility] ENDOSCOPY ROOM 04 Note Status: Finalized Procedure: Colonoscopy Indications: Screening for colorectal malignant neoplasm Referring MD: Providers: Albino Calabrese M.D. Medicines: Monitored Anesthesia Care Complications: No immediate complications. Estimated Blood Loss: Estimated blood loss: none. Procedure: Pre-Anesthesia Assessment: - Prior to the procedure, a History and Physicalwas performed, and patient medications and allergieswere reviewed. The risks and benefits of the procedureand the sedation options and risks were discussed withthe patient. All questions were answered and informed consent was obtained. Patient identification and proposed procedure were verified. After reviewingthe risks and benefits, the patient was deemed in satisfactory condition to undergo the procedure.The anesthesia plan was to use monitored anesthesiacare (MAC). Immediately prior to administration of medications, the patient was re-assessed foradequacy to receive sedatives. The heart rate, respiratory rate, oxygen saturations, blood pressure, adequacyof pulmonary ventilation, and response to care were monitored throughout the procedure. The physical status of the patient was re-assessed after the procedure. The benefits, risks and alternatives of theprocedure and sedation were discussed and informed consentwas obtained. All questions were answered. Please referto the signed informed consent document in the medical record. The scope was passed under direct vision.The [id number]-[id number] colonoscope was introduced through theanus and advanced to the cecum, identified byappendiceal orifice and ileocecal valve. The colonoscopy was performed without difficulty. The patient tolerated the procedure well. The quality of the bowel preparation was adequate. Scope withdrawal time was14 minutes. Prep was administered in a split dose. Findings: The perianal and digital rectal examinations were normal. A 10 mm polyp was found in the splenic flexure. The polyp wassessile. The polyp was removed with a hot snare. Resection and retrieval were complete. A 10 mm polyp was found in the sigmoid colon. The polyp was sessile.The polyp was removed with a hot snare. Resection and retrieval were complete. A few small-mouthed diverticula were found in the sigmoid colon. Non-bleeding internal hemorrhoids were found during retroflexion. The hemorrhoids were small. The exam was otherwise without abnormality. Impression: - One 10 mm polyp at the splenic flexure, removedwith a hot snare. Resected and retrieved. - One 10 mm polyp in the sigmoid colon, removedwith a hot snare. Resected and retrieved. - Diverticulosis in the sigmoid colon. - Non-bleeding internal hemorrhoids. - The examination was otherwise normal. Recommendation: - Patient has a contact number available for emergencies. The signs and symptoms of potential delayed complications were discussed with thepatient. Return to normal activities tomorrow. Written discharge instructions were provided to thepatient. - High fiber diet. - Continue present medications. - Await pathology results. - Repeat colonoscopy in 3 years for surveillance. Albino Calabrese M.D. Albino Calabrese M.D. 06/13/2024 9:31:38 AM . Number of Addenda: 0 Note Initiated On: 06/13/2024 9:06 AM Recognized by the [employer] [employer] for promoting quality in endoscopy us Albino Calabrese MD ENDOSCOPY PROCEDURES Final Resul t * Hepatitis panel, acute (03/07/2018 5:41 AM CDT) HepBsAg NONREACT NONREACTIVE 03/07/2018 9:19 AM [employer] HISTORICAL RESULTS Comment: [employer] using CONCEPCIÓN (chemiluminescent immunoassay) technology. NONREACTIVE: IgM antibodies to Hepatitis B Surface antigen not detected. REACTIVE: IgM antibodies to Hepatitis B Surface antigen detected. Reactive results will be confirmed by neutralization testing. HBsAb qn < 3.10 mIU/mL Comment: Siemens [employer]aurXP using CONCEPCIÓN (chemiluminescent immunoassay) technology. 9.99 IU/L or less.....NONREACTIVE: IgM antibodies to Hepatitis B Surface antibody are not detected. 10.00 IU/L or greater..REACTIVE: IgM antibodies to Hepatitis B Surface antibody are detected. Hep B core IgM NONREACT NONREACTIVE 8 9:45 AM [place] [facility] [place] Comment: Siemens CentaurXP using CONCEPCIÓN (chemiluminescent immunoassay) technology. NONREACTIVE: IgM antibodies to Hepatitis B Core antigen not detected. EQUIVOCAL: IgM antibodies to Hepatitis B Core antigen may or may not be present. Obtain a new specimen and retest. REACTIVE: IgM antibodies to Hepatitis B Core antigen detected. Hep A IgM NONREACT NONREACTIVE Comment: Siemens CentaurXP using CONCEPCIÓN (chemiluminescent immunoassay) technology. NONREACTIVE: IgM antibodies to Hepatitis A not detected. This does not exclude possibility of exposure to Hepatitis A or early acute infection. EQUIVOCAL:IgM antibodies to Hepatitis A may or may not be present. Suggest recollection and retest. REACTIVE: Antibodies to Hepatitis A detected. Hep C Ab NONREACT NONREACTIVE 03/07/2018 9:45 AM [facility] [place] Comment: Siemens CentaurXP using CONCEPCIÓN (chemiluminescent immunoassay) technology. NONREACTIVE: Antibodies to Hepatitis C not detected. This does not exclude early acute Hepatitis C infection, possibility of exposure to Hepatitis C, antibodies below detection limit, or to lack of antibody reactivity to the antigen used in this assay. EQUIVOCAL: Antibodies to Hepatitis C may or may not be present. Sample to be confirmed by real-time PCR method. REACTIVE: Antibodies to Hepatitis C detected. 03/07/2018 5:41 AM CDT 03/07/2018 5:47 AM CDT us Yosvany Hummel MD LAB MICROBIOLOGY - GENERAL OR DERABLES Final Result [facility] [place] from Last 3 Months or Most Recently Relevant to Health Maintenance Insurance [facility] MEDICARE ADVANTAGE [place] [id number] [employer] CHO[employer] MEDICARE PPO [facility] MEDICARE ADVANTAGE [facility] [place] [address] Advance Directives For more information, please contact: [phone] * Full Code (Latest Code Status on File) Date Activated Date Inactivated Comments 01/01/2025 5:52 PM 01/06/2025 7:29 PM * Full Code Date Activated Date Inactivated Comments 12/23/2024 2:09 PM 01/01/2025 5:52 PM * Full Code Date Activated Date Inactivated Comments 04/15/2022 7:48 PM 04/18/2022 10:28 PM * Full Code Date Activated Date Inactivated Comments 04/15/2022 4:24 PM 04/15/2022 7:48 PM Care Teams Account General Manager Relationship Specialty Start Date End Date Jon Howard PA [address] [address] PCP - General Internal Medicine 01/03/19 Rikki Romero MD [address] [facility] [address] [place] [address] [place] [address] Consulting Physician Pulmonary Disease 01/30/19 Sultan Maria Luisa Teran MD [address] [facility] [address] [place] [address] [address] Litigation Counsel Cardiovascular Disease 01/30/19 [place] [address] [address] Consulting Physician Cardiovascular Disease 08/27/24 [place] [address] [address] Surgeon Thoracic Surgery 01/06/25
--- OUTSIDE RECORDS SUMMARY | 2025-05-19 14:02 | XMS_ITS | Encounter Summary ---
Author Organization [facility] Healthcare Address [address] [place] [address] Care Team Providers Care Water Technician Name Role Phone Sera Howard Primary Care Provider [phone] Rikki Romero MD Unavailable [phone] Sultan Maria Luisa Teran MD Unavailable [phone] Keenan Mckoy RN Unavailable [phone] Emmy Barragan [facility] Unavailable Cary Pena MD Unavailable Shyann Mijares MA Unavailable Rigoberto Rodriguez MD Unavailable [phone] Ching Chun LPN Unavailable [phone] Encounter Details Date Type Department Care Team (Late st Contact Info) Description 06/28/2024 Orders Only [facility] [place] Management [address] [place] [id number] Scanning, Provider Social History Tobacco Use Types [...] on file 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 [address] [place] [address] PCP - General Internal Medicine 01/03/19 Rikki Romero MD [address] [facility] [address] [place] [address] [place] [address] Consulting Physician Pulmonary Disease 01/30/19 Sultan Maria Luisa Teran MD [address] [facility] [address] [place] [address] [address] Center Administrator Cardiovascular Disease 01/30/19 Keenan Mckoy, RN [address] [place] [address] [address] [place] [address] Director Audience Marketing 07/04/24 09/12/24 Emmy Barragan, [address] [place] [address] Pharmacist Pharmacy 07/31/24 08/01/24 [place] [address] [address] [facility] [address] [place] [address] Consulting Physician Cardiovascular Disease 08/27/24 Shyann Mijares MA [address] [place] [address] [address] [place] [address] ACO Care Lead Miner 11/06/24 11/07/24 Rigoberto Rodriguez MD [address] [place] [address] [address] [place] [address] Surgeon Thoracic Surgery 01/06/25 Ching Chun LPN [address] [place] [address] [address] [place] [address] Director Audience Marketing 01/07/25 01/07/25 documented as of this encounter
--- OUTSIDE RECORDS SUMMARY | 2025-05-19 14:02 | XMS_ITS | Clinical Summary ---
Author Organization [facility] Address [address] [place] [address] Care Team Providers Care Cementer Machine Applicator Name Role Phone Unavailable Primary Care Provider [...]
--- OUTSIDE RECORDS SUMMARY | 2025-05-19 14:02 | XMS_ITS | Continuity of Care Document ---
Author Organization [facility] Address [address] [place] [address] Phone Care Team Providers Care Rn Transitional Name Role Phone Winston Rocha MD Unavailable [...] Encounter [facility], [address] [place] [address], [id number], tel:[phone] [facility] No Information 3 Aj Montero. [address] [facility] [address], [place], [place], [id number], [place]. tel:[phone] Referring Provider: [facility] [address], [place], [address]. tel:[phone] New (Level 4) OFFICE/OUTPAT IENT VISIT [facility], [address] [place] [address], [id number], tel:[phone] [facility] allergies and asthma (chief complaint) Body mass index (BMI) 31.0-31.9, adultChronic rhinitisSevere persistent asthma 2 Zaira Cheshil. [address], [place], [address], [place]. tel:[phone] Referring Provider: [facility] [address], [place], [address]. tel:[phone] Family History Family Member Type Diagnosis Age At Onset No Information Payers Payer name Insurance type Covered alliance party ID Chago espinoza(s) [facility] [employer] CI [id number] Social History Type Description Quantity Date Captured [...] rolaids. He has intermittently used a PPI.PMH: [id number]: cholecystectomyMedication Allergies: NKDAFH: He is uncertain about [...]
--- OUTSIDE RECORDS SUMMARY | 2025-05-19 14:02 | XMS_ITS | Encounter Summary ---
Author Organization [facility] Facility Care Team Providers Care Beam Builder Helper Name Role Phone Sera Howard Primary Care Provider [phone]- [phone] Rikki Romero MD Unavailable [phone] Sultan Maria Luisa Teran MD Unavailable [phone] Keenan Mckoy RN Unavailable +[phone] Emmy Barragan [facility] Unavailable Cary Pena MD Unavailable [phone] Shyann Mijares MA Unavailable Rigoberto Rodriguez MD Unavailable +[phone] Ching Chun LPN Unavailable +[phone] Encounter Details Date Type Department Care Team (Latest Contact Info) Description 01/16/2015 Orders Only [facility]INCON[facility] ProviderKumar MD [address] [place] [address] Social History Tobacco Use Types Packs/Day Years Used Date Smoking Tobacco: Never Assessed Sex and Gender Information Value Date Recorded Sex Assigned at Not on file Legal Sex Male 6:48 AM JUDICIAL REPORTER Gender Identity Not on file Sexual Orientation Not on file documented as of this encounter Plan of Treatment Not on file documented as of this encounter Procedures Procedure Name Priority Date/Time Associated Diagnosis Comments CARDIOLOGY REPORT 10/26/2016 12: 00 AM JUDICIAL REPORTER documented in this encounter Results * CARDIOLOGY REPORT (10/26/2016 12:00 AM JUDICIAL REPORTER) Anatomical Region Laterality Modality Other Narrative 10/26/2016 12:00 AM JUDICIAL REPORTER Ordered by an unspecified provider. us Historical Provider CV CARDIAC SERVICES TREVOR OWENS Final Result documented in this encounter Visit Diagnoses Not on filedocumented in this encounter Additional Health Concerns Infection Onset Date Last Indicated Resolved Time C. difficile Comment:2012 01/08/2015 01/06/2015 04/18/2022 7:55 AM C DT COVID: Suspected 10/25/2021 10/27/2021 10/27/2021 8:01 PM JUDICIAL REPORTER COVID: Suspected 04/15/2022 04/15/2022 04/15/2022 4:54 PM CDT COVID: Suspected 11/05/2024 11/05/2024 11/05/2024 9:48 AM JUDICIAL REPORTER COVID: Suspected 12/23/2024 12/23/2024 12/23/2024 9:13 AM CDT documented as of this encounter Care Teams Beam Builder Helper Relationship Specialty Start Date End Date Sera Howard PA [address] [place] [address] PCP - General Internal Medicine 01/03/19 Rikki Romero MD [address] [address] [place] [address] Consulting Physician Pulmonary Disease 01/30/19 Sultan Maria Luisa Teran MD [address] [place] [address] Spine Nurse Cardiovascular Disease 01/30/19 Keenan Mckoy, GABO [address] [place] [address] Cylinder Press Operator Apprentice 07/04/24 09/12/24 Emmy Barragan RPh [address] [place] [address] Pharmacist Pharmacy 07/31/24 08/01/24 [place] [address] [place] [address] Consulting Physician Cardiovascular Disease 08/27/24 Shyann Mijares MA [address] [place] [address] [address] [place] [address] ACO Care Coal Grader 11/06/24 11/07/24 Rigoberto Rodriguez MD [address] [place] [address] [address] [place] [address] Surgeon Thoracic Surgery 01/06/25 Ching Chun LPN [address] [place] [address] [address] [place] [address] Cylinder Press Operator Apprentice 01/07/25 01/07/25 documented as of this encounter
--- OUTSIDE RECORDS SUMMARY | 2025-05-19 14:02 | XMS_ITS | Clinical Summary ---
Author Organization [facility] Address [address] [place] [address] Phone Care Team Providers Care Color Tester Name Role Phone Unavailable Primary Care Provider Unavailabl e Allergies No known active allergies Medications albuterol (PROVENTIL,SHEMAR RENATA) 2.5 mg /3 mL (0.083 %) Solution for Nebulization Take 2.5 mg by inhalation every 8 hours as needed for Shortness of Breath. 3 Active albuterol sulfate HFA 90 mcg/actuation aerosol inhaler Take 2 Puffs by inhalation every 6 hours as needed for Shortness of Breath. 4 Active buPROPion HCL (WELLBUTRIN XL) 150 mg Extended Release 24 hour tablet Take 1 Tablet by mouth daily in the morning. 4 Active empagliflozin (JARDIANCE) 25 mg tablet Take 25 mg by mouth daily. 4 Active insulin glargine-lixisen atide (Soliqua 100/33) 100 unit-33 mcg/mL Insulin Pen Inject 30 Units by subcutaneous injection daily with supper. 4 Active losartan (COZAAR) 100 mg tablet Take 100 mg by mouth daily. 4 Active montelukast (SINGULAIR) 10 mg tablet Take 10 mg by mouth daily at bedtime. 3 Active fluticasone-umec lidinium-vilante rol (Trelegy Ellipta) 200-62.5-25 mcg Disk with Device Take 1 Puff by inhalation daily. 4 Active apixaban (ELIQUIS) 5 mg tablet Take 1 Tablet (5 mg) by mouth 2 times daily. 60 Tablet 07/02/2024 12:57 PM CDT Active rosuvastatin (CRESTOR) 40 mg tablet Starting 07/03/24, Take 1 Tablet (40 mg) by mouth daily. 30 Tablet 07/02/2024 12:57 PM CDT 4 Active traMADol-acetami nophen (ULTRACET) 37.5-325 mg tabletIndication s:Neck pain Take 1 Tablet by mouth every 6 hours as needed for Severe Pain. 20 Tablet 07/02/2024 12:57 PM CDT Active DULoxetine (CYMBALTA) 60 mg Capsule, Delayed Release(E.C.) Take 60 mg by mouth 2 times daily. Active insulin lispro (HumaLOG,ADMELOG ) 100 unit/mL pen syringe USE LISPRO INSULIN ONLY FOR SLIDING SCALE BEFORE MEALS, NO SLIDING SCALE AT BEDTIME. NO INSULIN IF BLOOD SUGAR IS LESS THAN 200. 201-250: 5 UNITS, 251-300: 7 UNITS, 301-350: 9 UNITS, 351-400: 11 UNITS, 401-450: 14 UNITS. MAX 42 UNITS DAILY NEEDED Active Active Problems Problem Noted Date Diagnosed Date [...] Encounters Date Type Department Care Team Description 05/13/2025 External Device Data STL ABSTRACTION Provider, Abstract 05/06/2025 External Device Data STL ABSTRACTION Provider, Abstract 04/16/2025 External Device Data ST[facility] ABSTRACTION Provider, Abstract 04/16/2025 External Device Data STL ABSTRACTION Provider, Abstract 03/25/2025 External Device Data STL ABSTRACTION Provider, Abstract 03/18/2025 External Device Data STL ABSTRACTION Provider, Abstract 03/04/2025 External Device Data STL ABSTRACTION Provider, Abstract [...] 0.6 oz pur e alcohol) former occasional Sex and Gender Information Value Date [...] 8:56 AM CDT Height 177.8 cm (5' 10) 02/06/2025 8:56 AM CDT Body Mass Index 33.29 02/06/2025 8:56 AM CDT Plan of Treatment Upcoming Encounters Date Type Department Care Team (Late st Contact Info) Description 08/07/2025 10:15 AM PROP AND SCENERY MAKER Appointment [facility] V[facility] Testing [address] [place] [address] Nikki Spence FNP [address] [facility] [address] [place] [address] 08/07/2025 11:00 AM PROP AND SCENERY MAKER Office Visit [facility] Heart [facility] Vascular Surgery [address] [facility] [address] [facility] [address] [place] [address] Nikki Spence FNP [address] [facility] [address] [place] [address] Health Maintenance Due Date Last Done Comments DIABETES ANNUAL RETINAL EXAM 1980 DIABETES MICROALBUMIN ANNUAL SCREEN 1980 ZOSTER VACCINE (1 of 2) 1981 FIT-DNA Q 3 years 2007 FIT/FOBT Q 1 year 2007 Flex Sig/CT Colonography Q 5 years 2007 RSV VACCINE (60+ or ) (1 - Risk 60-74 years 1-dose series) 2022 COVID-19 Vaccine (4 - 2023-2 5 season) 2024 09/21/2021, 01/16/2021, 12/19/2020 DTAP/TDAP/TD VACCINES (3 - T d or Tdap) 02/09/2025 02/09/2015, 02/09/2015 INFLUENZA VACCINE (#1) 2025 , 07/24/2019, 08/03/2017, Additional history exists DIABETES HBA1C Q 6 MONTHS 06/25/20252024, 12/06/2024, 06/29/2024, Additional history exists LDL CHOLESTEROL ANNUAL 06/30/2025 06/30/2024 DIABETES ANNUAL FOOT EXAM 07/08/2025 07/08/2024 COLORECTAL SCREENING 06/13/2034 06/13/2024, 06/13/20 Colorectal Cancer Screening 06/13/2034 Abdominal Aortic Aneurysm (A AA) Screening Completed 07/01/2024, 03/05/2018 Procedures Procedure Name Priority Date/Time Associated Diagnosis Comments US AORTA Routine 07/01/2024 10:47 AM CDT LIPID PANEL Routine 06/30/2024 2:35 AM CDT HEMOGLOBIN A1C Routine 06/29/2024 5:22 AM CDT from Last 3 Months or Most Recently Relevant to Health Maintenance Results * US AORTA (07/01/2024 10:47 AM CDT) Anatomical Region Laterality Modality Abdomen Ultrasound 07/01/2024 10:4 8 AM CDT Impressions 07/01/2024 1:20 PM CDT IMPRESSION: 1. No abdominal aortic aneurysm. DICTATION LOCATION: [facility] Narrative 07/01/2024 1:20 PM CDT Examination: Aorta ultrasound. [...] 1. No abdominal aortic aneurysm. DICTATION LOCATION: [facility] Louie Arnold MD ORDERABLES Final Result * LIPID PANEL (06/30/2024 2:35 AM CDT) [facility] Signature CHOLESTEROL 132 <200 mg/dL 06/30/2024 3:27 AM CDT [facility] TRIGLYCERIDE 133 <150 mg/dL 06/30/2024 3:27 AM CDT [facility] HDL 47 40 - 59 mg/dL 06/30/2024 3:27 AM CDT [facility] LDL CALCULATED 58 <100 mg/dL 06/30/2024 3:27 AM CDT [facility] NON-HDL CHOLESTEROL 85 <130 mg/dL 06/30/2024 3:27 AM CDT [facility] Blood Venipuncture / Unknown 06/30/2024 2:35 AM CDT 06/30/2024 2:57 AM CDT Narrative [facility] - 06/30/2024 3:27 AM CDT TOTAL CHOLESTEROL [...] Santiago MD CHEMISTRY ORDERABL ES Final Result Performing Organization Address [facility] Co de Phone Number [facility] [employer] [facility] CLIA# [id number] [place] [address] * (ABNORMAL) HEMOGLOBIN A1C (06/29/2024 5:22 AM CDT) HEMOGLOBIN A1C 8.7(H) <=5.6 % 06/29/2024 5:53 AM CDT [facility] [employer] [facility] EST. AVG GLUCOSE, A1C 203 mg/dL 06/29/2024 5:53 AM CDT [facility] [employer] [facility] Blood Venipuncture / Unknown 06/29/2024 5:22 AM CDT 06/29/2024 5:30 AM CDT Narrative [facility] LABORATORY [facility] - 06/29/2024 5:53 AM CDT HGB A1C INTERPRETATION NORMAL: <5.7% PRE-DIABETES: 5.7 - 6.4% DIABETES: 6.5% OR GREATER Gina Santiago MD CHEMISTRY ORDERABL ES Final Result Performing Organization Address [facility] Co de Phone Number [facility] [employer] [facility] CLIA# [id number] [place] [address] from Last 3 Months or Most Recently Relevant to Health Maintenance Insurance [facility] [id number] RX [employer] RX Member Subscriber Plan / Payer (Ef fective 2024-Present) Name:Daniele Vu Relation to Subscriber:Self Name:Daniele Vu Payer ID:Not on file Group ID:[id number] Type:RX Medicare Part D Address: [address] Advance Directives For more information, please contact: [phone] * Full Code (Latest Code Status on File) Date Activated Date Inactivated Comments 06/29/2024 4:40 AM 07/02/2024 3:34 PM
--- OUTSIDE RECORDS SUMMARY | 2025-05-19 14:02 | XMS_ITS | Encounter Summary ---
Author Organization [facility] Facility Care Team Providers Care Bed Worker Name Role Phone Sera Howard Primary Care Provider [phone]- [phone] Rikki Romero MD Unavailable +[phone] Sultan Maria Luisa Trean MD Unavailable [phone] Keenan Mckoy RN Unavailable [phone] Emmy Barragan [facility] Unavailable Cary Pena MD Unavailable [phone] Shyann Mijares MA Unavailable Rigoberto Rodriguez MD Unavailable +[phone] Ching Chun LPN Unavailable [phone] Encounter Details Date Type Department Care Team (Latest Contact Info) Description 01/08/2015 Orders Only [facility] CLINCONV ProviderKumar MD [address] [place] [address] Social History Tobacco Use Types Packs/Day Years Used Date Smoking Tobacco: Never Assessed Sex and Gender Information Value Date Recorded Sex Assigned at Not on file Legal Sex Male 6:48 AM ASSEMBLER PLASTIC BOAT Gender Identity Not on file Sexual Orientation Not on file documented as of this encounter Plan of Treatment Not on file documented as of this encounter Procedures Procedure Name Priority Date/Time Associated Diagnosis Comments SCAN - LABS 10/28/2016 12:00 AM ASSEMBLER PLASTIC BOAT CARDIOLOGY REPORT 10/26/2016 12: 00 AM ASSEMBLER PLASTIC BOAT CARDIOLOGY REPORT 10/26/2016 12: 00 AM ASSEMBLER PLASTIC BOAT CARDIOLOGY REPORT 10/26/2016 12: 00 AM ASSEMBLER PLASTIC BOAT documented in this encounter Results * SCAN - LABS (10/28/2016 12:00 AM ASSEMBLER PLASTIC BOAT) Narrative 10/28/2016 12:00 AM ASSEMBLER PLASTIC BOAT Ordered by an unspecified provider. [facility] Provider Final Res ult * CARDIOLOGY REPORT (10/26/2016 12:00 AM ASSEMBLER PLASTIC BOAT) Anatomical Region Laterality Modality Other Narrative 10/26/2016 12:00 AM ASSEMBLER PLASTIC BOAT Ordered by an unspecified provider. [facility] Provider CV CARDIAC SERVICES PROCE DURES Final Result * CARDIOLOGY REPORT (10/26/2016 12:00 AM ASSEMBLER PLASTIC BOAT) Anatomical Region Laterality Modality Other Narrative 10/26/2016 12:00 AM ASSEMBLER PLASTIC BOAT Ordered by an unspecified provider. [facility] Provider CV CARDIAC SERVICES PROCE DURES Final Result * CARDIOLOGY REPORT (10/26/2016 12:00 AM ASSEMBLER PLASTIC BOAT) Anatomical Region Laterality Modality Other Narrative 10/26/2016 12:00 AM ASSEMBLER PLASTIC BOAT Ordered by an unspecified provider. [facility] Provider CV CARDIAC SERVICES PROCE DURES Final Result documented in this encounter Visit Diagnoses Not on filedocumented in this encounter Additional Health Concerns Infection Onset Date Last Indicated Resolved Time C. difficile Comment:2012 01/08/2015 01/06/2015 04/18/2022 7:55 AM C DT COVID: Suspected 10/25/2021 10/27/2021 10/27/2021 8:01 PM ASSEMBLER PLASTIC BOAT COVID: Suspected 04/15/2022 04/15/2022 04/15/2022 4:54 PM CDT COVID: Suspected 11/05/2024 11/05/2024 11/05/2024 9:48 AM ASSEMBLER PLASTIC BOAT COVID: Suspected 12/23/2024 12/23/2024 12/23/2024 9:13 AM CDT documented as of this encounter Care Teams Bed Worker Relationship Specialty Start Date End Date Sera Howard PA [address] [facility] [address] [place] [address] PCP - General Internal Medicine 01/03/19 Rikki Romero MD [address] [facility] [address] [place] [address] Consulting Physician Pulmonary Disease 01/30/19 Sultan Maria Luisa Teran MD [address] [facility] [address] [place] [address] Tree Climber Cardiovascular Disease 01/30/19 Keenan Mckoy, GABO [address] [place] [address] [address] [place] [address] Vaccine Specialist 07/04/24 09/12/24 Emmy Barragan, [address] [place] [address] Pharmacist Pharmacy 07/31/24 08/01/24 [place] [address] [facility] [address] [place] [address] Consulting Physician Cardiovascular Disease 08/27/24 Shyann Mijares MA [address] [place] [address] [address] [place] [address] ACO Care Appian Bpm Developer 11/06/24 11/07/24 Rigoberto Rodriguez MD [address] [place] [address] [address] [place] [address] Surgeon Thoracic Surgery 01/06/25 Ching Chun LPN [address] [place] [address] [address] [place] [address] Vaccine Specialist 01/07/25 01/07/25 documented as of this encounter
--- OUTSIDE RECORDS SUMMARY | 2025-05-19 14:34 | XMS_ITS | Clinical Summary ---
Author Organization [facility] Address [address] [place] [address] Care Team Providers Care Chainstitch Sewing Machine Operator Name Role Phone Unavailable Primary Care Provider [...]
--- OUTSIDE RECORDS SUMMARY | 2025-05-19 14:34 | XMS_ITS | Encounter Summary ---
Author Organization [facility] Facility Care Team Providers Care Maintenance Shop Manager Name Role Phone Sera Howard Primary Care Provider [phone] Rikki Romero MD Unavailable [phone] Sultan Maria Luisa Teran MD Unavailable [phone] Keenan Mckoy RN Unavailable [phone] Emmy Barragan [facility] Unavailable Cary Pena MD Unavailable [phone] Shyann Mijares MA Unavailable Rigoberto Rodriguez MD Unavailable +[phone] Ching Chun LPN Unavailable [phone] Encounter Details Date Type Department Care Team (Latest Contact Info) Description 01/16/2015 Orders Only [facility] CLINCONV ProviderKumar MD [address] [place] [address] Social History Tobacco Use Types Packs/Day Years Used Date Smoking Tobacco: Never Assessed Sex and Gender Information Value Date Recorded Sex Assigned at Not on file Legal Sex Male 6:48 AM V BELT SKIVER Gender Identity Not on file Sexual Orientation Not on file documented as of this encounter Plan of Treatment Not on file documented as of this encounter Procedures Procedure Name Priority Date/Time Associated Diagnosis Comments CARDIOLOGY REPORT 10/26/2016 12: 00 AM V BELT SKIVER documented in this encounter Results * CARDIOLOGY REPORT (10/26/2016 12:00 AM V BELT SKIVER) Anatomical Region Laterality Modality Other Narrative 10/26/2016 12:00 AM V BELT SKIVER Ordered by an unspecified provider. us Historical Provider CV CARDIAC SERVICES TREVOR OWENS Final Result documented in this encounter Visit Diagnoses Not on filedocumented in this encounter Additional Health Concerns Infection Onset Date Last Indicated Resolved Time C. difficile Comment:2012 01/08/2015 01/06/2015 04/18/2022 7:55 AM C DT COVID: Suspected 10/25/2021 10/27/2021 10/27/2021 8:01 PM V BELT SKIVER COVID: Suspected 04/15/2022 04/15/2022 04/15/2022 4:54 PM CDT COVID: Suspected 11/05/2024 11/05/2024 11/05/2024 9:48 AM V BELT SKIVER COVID: Suspected 12/23/2024 12/23/2024 12/23/2024 9:13 AM CDT documented as of this encounter Care Teams Maintenance Shop Manager Relationship Specialty Start Date End Date Sera Howard PA [address] [address] [place] [address] PCP - General Internal Medicine 01/03/19 Rikki Romero MD [address] [facility] [address] [place] [address] Consulting Physician Pulmonary Disease 01/30/19 Sultan Maria Luisa Teran MD [address] [facility] [address] [place] [address] Section Plotter Operator Cardiovascular Disease 01/30/19 Keenan Mckoy, GABO [address] [facility] [address] [place] [address] [employer] 07/04/24 09/12/24 Emmy Barragan RPh [address] [facility] [facility] [address] [place] [address] Pharmacist Pharmacy 07/31/24 08/01/24 [place] [address] [place] [address] Consulting Physician Cardiovascular Disease 08/27/24 Shyann Mijares MA [address] [place] [address] [address] [place] [address] ACO Care Medical Instrument Cable Fabricator 11/06/24 11/07/24 Rigoberto Rodriguez MD [address] [place] [address] [address] [place] [address] Surgeon Thoracic Surgery 01/06/25 Ching Chun LPN [address] [place] [address] [address] [place] [address] Teacher [employer] 01/07/25 01/07/25 documented as of this encounter
--- OUTSIDE RECORDS SUMMARY | 2025-05-19 14:34 | XMS_ITS | Encounter Summary ---
Author Organization [facility] Address [address] [facility] [address] [place] [address] Care Team Providers Care Seat Joiner Chainstitch Name Role Phone Sera Howard Primary Care Provider [phone] Rikki Romero MD Unavailable +[phone] Sultan Maria Luisa Teran MD Unavailable [phone] Keenan Mckoy RN Unavailable Emmy Barragan [facility] Unavailable Cary Pena MD Unavailable Shyann Mijares MA Unavailable Rigoberto Rodriguez MD Unavailable [phone] Ching Chun LPN Unavailable +[phone] Encounter Details Date Type Department Care Team (Late st Contact Info) Description 07/06/2015 Orders Only [facility] Health Information Management [address] [place] [address] Scanning, Provider Social History Tobacco Use Types Packs/Day Years Used Date Smoking Tobacco: Never Assessed Sex and Gender Information Value Date Recorded Sex Assigned at Not on file Legal Sex Male 6:48 AM SUBSTATION ELECTRICIAN Gender Identity Not on file Sexual Orientation [...] COVID: Suspected 10/25/2021 10/27/2021 10/27/2021 8:01 PM SUBSTATION ELECTRICIAN COVID: Suspected 04/15/2022 04/15/2022 04/15/2022 4:54 PM CDT COVID: Suspected 11/05/2024 11/05/2024 11/05/2024 9:48 AM SUBSTATION ELECTRICIAN COVID: Suspected 12/23/2024 12/23/2024 12/23/2024 9:13 AM CDT documented as of this encounter Care Teams Seat Joiner Chainstitch Relationship Specialty Start Date End Date Sera Howard PA [address] [facility] [address] [facility] [address] [place] [address] PCP - General Internal Medicine 01/03/19 Rikki Romero MD [address] [facility] [address] [place] [address] Consulting Physician Pulmonary Disease 01/30/19 Sultan Maria Luisa Teran MD [address] [facility] [address] [address] Control And Recovery Combat Rescue Cardiovascular Disease 01/30/19 Keenan Mckoy, GABO [address] [facility] [address] [place] [address] Supervising Librarian 07/04/24 09/12/24 Emmy Barragan RPh [address] [facility] [address] [place] [address] Pharmacist Pharmacy 07/31/24 08/01/24 [place] [address] [address] [facility] [address] [place] [address] Consulting Physician Cardiovascular Disease 08/27/24 Shyann Mijares MA [address] [place] [address] [address] [place] [address] ACO Care Polish Maker 11/06/24 11/07/24 Rigoberto Rodriguez MD [address] [place] [address] [address] [place] [address] Surgeon Thoracic Surgery 01/06/25 Ching Chun LPN [address] [place] [address] [address] [place] [address] Supervising Librarian 01/07/25 01/07/25 documented as of this encounter
--- OUTSIDE RECORDS SUMMARY | 2025-05-19 14:34 | XMS_ITS | Clinical Summary ---
Author Organization [facility] Address [address] [place] [address] Phone Care Team Providers Care Drama Critic Name Role Phone Unavailable Primary Care Provider [...] st Contact Info) Description 08/07/2025 10:15 AM COMPUTER EQUIPMENT INSTALLER Appointment [facility] Heart and Vascular Testing [address] [place] [address] Nikki Spence FNP [address] [facility] [address] [place] [address] 08/07/2025 11:00 AM COMPUTER EQUIPMENT INSTALLER Office Visit [facility] ([facility]3] Heart and Vascular Surgery [address] [address] [facility] 101 [address] [facility] [address] [place] [address] Nikki Spence FNP [address] [facility] [address] [place] [address] Health Maintenance Due Date Last [...] 1. No abdominal aortic aneurysm. DICTATION LOCATION: [facility] Narrative 07/01/2024 1:20 PM CDT Examination: Aorta [...] 1. No abdominal aortic aneurysm. DICTATION LOCATION: [facility] Louie Arnold MD ORDERABLES Final Result * LIPID PANEL (06/30/2024 2:35 AM CDT) [facility] Signature CHOLESTEROL 132 <200 mg/dL 06/30/2024 3:27 AM CDT [facility] TRIGLYCERIDE 133 <150 mg/dL 06/30/2024 3:27 AM CDT [facility] HDL 47 40 - 59 mg/dL 06/30/2024 3:27 AM CDT [facility] LDL CALCULATED 58 <100 mg/dL 06/30/2024 3:27 AM CDT [facility] NON-HDL CHOLESTEROL 85 <130 mg/dL 06/30/2024 3:27 AM CDT [facility] Blood Venipuncture / Unknown 06/30/2024 2:35 AM CDT 06/30/2024 2:57 AM CDT Narrative [facility] - 06/30/2024 3:27 AM CDT TOTAL CHOLESTEROL [...] ORDERABL ES Final Result Performing Organization Address [facility] Co de Phone Number [facility] CLIA# [id number] [place] [address] * (ABNORMAL) HEMOGLOBIN A1C (06/29/2024 5:22 AM CDT) HEMOGLOBIN A1C 8.7(H) <=5.6 % 06/29/2024 5:53 AM CDT [facility] EST. AVG GLUCOSE, A1C 203 mg/dL 06/29/2024 5:53 AM CDT [facility] Blood Venipuncture / Unknown 06/29/2024 5:22 AM CDT 06/29/2024 5:30 AM CDT Narrative [facility] LABORATORY [facility] - 06/29/2024 5:53 AM CDT HGB A1C INTERPRETATION NORMAL: <5.7% PRE-DIABETES: 5.7 - 6.4% DIABETES: 6.5% OR GREATER Gina Santiago MD CHEMISTRY ORDERABL ES Final Result Performing Organization Address [facility] Co de Phone Number [facility] CLIA# [id number] [place] [address] from Last 3 Months or Most Recently Relevant to Health Maintenance Insurance [facility] [id number] RX [employer] RX Member Subscriber Plan / Payer (Ef fective 2024-Present) Name:Daniele Vu Relation to Subscriber:Self Name:Daniele Vu Payer ID:Not on file Group ID:[id number] Type:RX Medicare Part D Address: EVIE T[address] Advance Directives For more information, please contact: [phone] * Full Code (Latest Code Status on File) Date Activated Date Inactivated Comments 06/29/2024 4:40 AM 07/02/2024 3:34 PM
--- OUTSIDE RECORDS SUMMARY | 2025-05-19 14:34 | XMS_ITS | Encounter Summary ---
Author Organization [facility] Address [address] [place] [address] Care Team Providers Care Box Strapper Name Role Phone Unavailable Primary Care Provider Unavailabl e Reason for Visit * Reason Onset Date Comments Acute CVA, small PFO 07/01/2024 SPOKE cara/ [email or web address] OFFICE Encounter Details Date Type Department Care Team (Late Contact Info) Description 07/01/2024 Telephone [facility] Admitting [address] [place] [address] [place] [address] [address] [place] [address] Acute CVA, small PFO (SPOKE [...] st Contact Info) Description 08/07/2025 10:15 AM MARINE ENGINEERING CONSULTANT Appointment [facility] Heart and Vascular Testing [address] [place] [address] Nikki Spence FNP [address] [facility] [address] [place] [address] 08/07/2025 11:00 AM MARINE ENGINEERING CONSULTANT Office Visit [facility] Heart and Vascular Surgery [address] [address] [address] [facility] [address] [place] [address] Nikki Spence [facility] [address] [place] [address] documented as of this encounter Visit Diagnoses Not on filedocumented in this encounter
--- OUTSIDE RECORDS SUMMARY | 2025-05-19 14:34 | XMS_ITS | Encounter Summary ---
Author Organization [employer] [facility] Address 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 Arnold's e xchange Encounter Details Date Type Department Care Team (Late Contact Info) Description 06/29/2024 Telephone [facility] Emergency [address] [place] [address] [place] [address] [address] [place] [address] Severe stenosis in rt & [...] st Contact Info) Description 08/07/2025 10:15 AM INSTRUMENT PANEL ASSEMBLER Appointment [facility] Heart and Vascular Testing [address] [place] [address] Nikki Spence, JERI [address] [address] [place] [address] 08/07/2025 11:00 AM INSTRUMENT PANEL ASSEMBLER Office Visit [facility] Heart and Vascular Surgery [address] [address] [facility] 101 [address] [facility] [address] [place] [address] Nikki Spence, [facility] [address] [facility] [address] [place] [address] documented as of this encounter Visit Diagnoses Not on filedocumented in this encounter
--- OUTSIDE RECORDS SUMMARY | 2025-05-19 14:34 | XMS_ITS | Encounter Summary ---
Author Organization [facility] Healthcare Address [address] [place] [address] Care Team Providers Care High Energy Forming Equipment Operator Name Role Phone Sera Howard Primary Care Provider [phone] Rikki Romero MD Unavailable [phone] Sultan Maria Luisa Teran MD Unavailable [phone] Keenan Mckoy RN Unavailable Emmy Barragan [facility] Unavailable Cary Pena MD Unavailable [phone] Shyann Mijares MA Unavailable Rigoberto Rodriguez MD Unavailable [phone] Ching Chun LPN Unavailable [phone] Encounter Details Date Type Department Care Team (Late st Contact Info) Description 06/28/2024 Orders Only [facility] Health Information Management [address] [place] [address] Scanning, Provider Social History Tobacco Use Types [...] on file Legal Sex Male 6:48 AM LOTTERY MANAGER Gender Identity Not on file Sexual Orientation [...] COVID: Suspected 11/05/2024 11/05/2024 11/05/2024 9:48 AM LOTTERY MANAGER COVID: Suspected 12/23/2024 12/23/2024 12/23/2024 9:13 AM CDT documented as of this encounter Care Teams High Energy Forming Equipment Operator Relationship Specialty Start Date End Date Sera Howard PA [address] [facility] [address] [place] [address] PCP - General Internal Medicine 01/03/19 Rikki Romero MD [address] [facility] [address] [place] [address] Consulting Physician Pulmonary Disease 01/30/19 Sultan Maria Luisa Teran MD [address] [facility] [address] [address] Manager Clinical Cardiovascular Disease 01/30/19 Keenan Mckoy, RN [address] [place] [address] [address] [place] [address] Freight Breaker 07/04/24 09/12/24 Emmy Barragan, [address] [place] [address] Pharmacist Pharmacy 07/31/24 08/01/24 [place] [address] [address] [facility] [address] [place] [address] Consulting Physician Cardiovascular Disease 08/27/24 Shyann Mijares MA [address] [place] [address] [address] [place] [address] ACO Care Dog License Officer Supervisor 11/06/24 11/07/24 Rigoberto Rodriguez MD [address] [place] [address] [address] [place] [address] Surgeon Thoracic Surgery 01/06/25 Ching Chun LPN [address] [place] [address] Dr [address] [place] [address] Freight Breaker 01/07/25 01/07/25 documented as of this encounter
--- OUTSIDE RECORDS SUMMARY | 2025-05-19 14:35 | XMS_ITS | Encounter Summary ---
Author Organization [facility] Healthcare Address [address] [place] [address] Care Team Providers Care Prepress Stripper Name Role Phone Sera Howard Primary Care Provider [phone] Rikki Romero MD Unavailable [phone] Sultan aMria Luisa Teran MD Unavailable [phone] Cary Pena MD Unavailable [phone] Rigoberto Rodriguez MD Unavailable [phone] Encounter Details Date Type Department Care Team (Late st Contact Info) Description 05/19/[address] [facility] Medical Group Diabetes Endocrine Care at [address] [address] Chelsie Boyle, CENTRIFUGAL SEPARATOR [address] [address] Social History Tobacco Use Types Packs/Day Years Used Date Smoking Tobacco: Former Cigarettes 0.2 42 0 01/30/1979 - 01/30/2021 Cigars Smokeless Tobacco: Never Alcohol Use Standard Drinks/Week Comments Yes 0 (1 standard drink = 0.6 oz pur e alcohol) [facility] Utilities Answer Date Recorded In [...] often do you attend chur ch or jain services? Never 12/24/2024 Do you belong to any clubs o r organizations such as temple groups, unions, fraternal or athletic groups, or [...] any time in the past 12 m [facility], were you homeless or living in a assisted (including now)? No 12/24/2024 Personal Safety Answer Date Recorded Have you ever been in or are you currently in a harmful physical or emotional relationship or is someone making you feel afraid or unsafe? Denies 01/17/2025 Sex and Gender Information Value Date Recorded Sex Assigned at Not on file Legal Sex Male 6:48 AM SUBSTITUTE CROSSING GUARD Gender Identity Not on file Sexual Orientation Not on file Occupation Industry Job Start Date Job End Date Disablilty Not on file Not on file Not on file documented as of this encounter Miscellaneous Notes * Telephone Encounter - Nani Nicholas MA - 05/19/2025 1:32 PM CDT Patient called again and stated that he went to the ER and his blood sugar was actually 426. He thought his blood sugar was dropping drastically but it turns out his meter was not reading correctly. He is requesting a new blood glucose kit be sent to his pharmacy. Please review message and send if approved. Thank you. documented in this encounter Plan of Treatment Not on file documented as of this encounter Goals Goal Patient Goal Type Associated Problems Recent Progress Patient-Stated? Author RXE General Goal - Patient is knowledgeable about condition when worsening and how to respond ACO Care Management On track(2023 4:22 PM SUBSTITUTE CROSSING GUARD) No Keenan Mckoy RN Note: Problem: Knowledge deficit related to [...] on filedocumented in this encounter Care Teams Prepress Stripper Relationship Specialty Start Date End Date Sera Howard PA [address] [facility] [address] [place] [address] PCP - General Internal Medicine 01/03/19 Rikki Romero MD [address] [facility] [address] [place] [address] Consulting Physician Pulmonary Disease 01/30/19 Sultan Maria Luisa Teran MD [address] [facility] [address] [address] Director Of Communications Cardiovascular Disease 01/30/19 [place] [address] [address] [facility] [address] [place] [address] Consulting Physician Cardiovascular Disease 08/27/24 [place] [address] [address] [facility] [address] [place] [address] Surgeon Thoracic Surgery 01/06/25 documented as of this encounter
--- OUTSIDE RECORDS SUMMARY | 2025-05-19 14:35 | XMS_ITS | Continuity of Care Document ---
Author Organization [facility] Address [address] [facility] [address] [place] [address] Phone Care Team Providers Care Increment Manager Name Role Phone Winston Rocha MD Unavailable [...] Encounter [facility], [address] [place] [address], [id number], tel:[phone] [facility] No Information 3 Aj Montero. [address] [facility] [address], [place], [place], [id number], [place]. tel:[phone] Referring Provider: Rikki Romero [facility] [address], [place], [address]. tel:[phone] New (Level 4) OFFICE/OUTPAT IENT VISIT [facility], [address] [place] [address], [id number], tel:[phone] [facility], [place] allergies and asthma (chief complaint) Body mass index (BMI) 31.0-31.9, adultChronic rhinitisSevere persistent asthma 2 Zaira Cheshil. [address], [place], [address], [place]. tel:[phone] Referring Provider: Rikki Romero [facility] [address], [place], [address]. tel:[phone] Family History Family Member Type Diagnosis Age At Onset No Information Payers Payer name Insurance type Covered alliance party ID Chago espinoza(s) [facility] [employer] CI [id number] Social History Type Description Quantity Date Captured [...] rolaids. He has intermittently used a PPI.PMH: [id number]: cholecystectomyMedication Allergies: NKDAFH: He is uncertain about [...]
--- OUTSIDE RECORDS SUMMARY | 2025-05-19 14:35 | XMS_ITS | Encounter Summary ---
Author Organization [facility] Facility Care Team Providers Care Line Construction Supervisor Name Role Phone Sera Howard Primary Care Provider [phone] Rikki Romero MD Unavailable [phone] Sultan Maria Luisa Teran MD Unavailable [phone] Keenan Mckoy RN Unavailable [phone] Emmy Barragan [facility] Unavailable Cary Pena MD Unavailable [phone] Shyann Mijares MA Unavailable Rigoberto Rodriguez MD Unavailable [phone] Ching Chun LPN Unavailable [phone] Encounter Details Date Type Department Care Team (Latest Contact Info) Description 01/08/2015 Orders Only [facility] ProviderKumar MD [address] [place] [address] Social History Tobacco Use Types Packs/Day Years Used Date Smoking Tobacco: Never Assessed Sex and Gender Information Value Date Recorded Sex Assigned at Not on file Legal Sex Male 6:48 AM GUNNER'S MATE Gender Identity Not on file Sexual Orientation Not on file documented as of this encounter Plan of Treatment Not on file documented as of this encounter Procedures Procedure Name Priority Date/Time Associated Diagnosis Comments SCAN - LABS 10/28/2016 12:00 AM GUNNER'S MATE CARDIOLOGY REPORT 10/26/2016 12: 00 AM GUNNER'S MATE CARDIOLOGY REPORT 10/26/2016 12: 00 AM GUNNER'S MATE CARDIOLOGY REPORT 10/26/2016 12: 00 AM GUNNER'S MATE documented in this encounter Results * SCAN - LABS (10/28/2016 12:00 AM GUNNER'S MATE) Narrative 10/28/2016 12:00 AM GUNNER'S MATE Ordered by an unspecified provider. [facility] Provider Final Res ult * CARDIOLOGY REPORT (10/26/2016 12:00 AM GUNNER'S MATE) Anatomical Region Laterality Modality Other Narrative 10/26/2016 12:00 AM GUNNER'S MATE Ordered by an unspecified provider. [facility] Provider CV CARDIAC SERVICES PROCE DURES Final Result * CARDIOLOGY REPORT (10/26/2016 12:00 AM GUNNER'S MATE) Anatomical Region Laterality Modality Other Narrative 10/26/2016 12:00 AM GUNNER'S MATE Ordered by an unspecified provider. [facility] Provider CV CARDIAC SERVICES PROCE DURES Final Result * CARDIOLOGY REPORT (10/26/2016 12:00 AM GUNNER'S MATE) Anatomical Region Laterality Modality Other Narrative 10/26/2016 12:00 AM GUNNER'S MATE Ordered by an unspecified provider. [facility] Provider CV CARDIAC SERVICES PROCE DURES Final Result documented in this encounter Visit Diagnoses Not on filedocumented in this encounter Additional Health Concerns Infection Onset Date Last Indicated Resolved Time C. difficile Comment:2012 01/08/2015 01/06/2015 04/18/2022 7:55 AM C DT COVID: Suspected 10/25/2021 10/27/2021 10/27/2021 8:01 PM GUNNER'S MATE COVID: Suspected 04/15/2022 04/15/2022 04/15/2022 4:54 PM CDT COVID: Suspected 11/05/2024 11/05/2024 11/05/2024 9:48 AM GUNNER'S MATE COVID: Suspected 12/23/2024 12/23/2024 12/23/2024 9:13 AM CDT documented as of this encounter Care Teams Line Construction Supervisor Relationship Specialty Start Date End Date Sera Howard PA [address] [facility] [address] [facility] [address] [place] [address] PCP - General Internal Medicine 01/03/19 Rikki Romero MD [address] [facility] [address] [place] [address] Consulting Physician Pulmonary Disease 01/30/19 Sultan Maria Luisa Teran MD [address] [facility] [address] [place] [address] Tile Designer Cardiovascular Disease 01/30/19 Keenan Mckoy, GABO [address] [place] [address] [address] [place] [address] Train Master 07/04/24 09/12/24 Emmy Barragan, [address] [place] [address] Pharmacist Pharmacy 07/31/24 08/01/24 [place] [address] [address] [facility] [address] [place] [address] Consulting Physician Cardiovascular Disease 08/27/24 Shyann Mijares MA [address] [place] [address] [address] [place] [address] ACO Care Freight Broker Agent 11/06/24 11/07/24 Rigoberto Rodriguez MD [address] [place] [address] [address] [place] [address] Surgeon Thoracic Surgery 01/06/25 Ching Chun LPN [address] [place] [address] [address] [place] [address] Train Master 01/07/25 01/07/25 documented as of this encounter
--- OUTSIDE RECORDS SUMMARY | 2025-05-19 14:35 | XMS_ITS | Encounter Summary ---
Author Organization [facility] Healthcare Address [address] [place] [address] Care Team Providers Care Reading Professor Name Role Phone Sera Howard Primary Care Provider [phone] Rikki Romero MD Unavailable [phone] Sultan Maria Luisa Teran MD Unavailable [phone] Cary Pena MD Unavailable [phone] Rigoberto Rodriguez MD Unavailable [phone] Encounter Details Date Type Department Care Team (Late st Contact Info) Description 05/19/2025 Telephone [facility] Medical Group Diabetes Endocrine Care at [address] [address] Chelsie Boyle, BUSINESS SERVICES SALES REPRESENTATIVE [address] [address] Social History Tobacco Use Types Packs/Day Years Used Date Smoking Tobacco: Former Cigarettes 0.2 42 0 01/30/1979 - 01/30/2021 Cigars Smokeless Tobacco: Never Alcohol Use Standard Drinks/Week Comments Yes 0 (1 standard drink = 0.6 oz pur e alcohol) [facility] Utilities Answer Date Recorded In the past [...] often do you attend chur ch or judaism services? Never 12/24/2024 Do you belong to any clubs o r organizations such as lutheran groups, unions, fraternal or athletic groups, or [...] any time in the past 12 m [facility], were you homeless or living in a group home (including now)? No 12/24/2024 Personal Safety Answer Date Recorded Have you ever been in or are you currently in a harmful physical or emotional relationship or is someone making you feel afraid or unsafe? Denies 01/17/2025 Sex and Gender Information Value Date Recorded Sex Assigned at Not on file Legal Sex Male 6:48 AM DIVING COACH Gender Identity Not on file Sexual Orientation [...] took glucose tablets. will take him to [facility] room as patient states he can [...] ACO Care Management On track(2023 4:22 PM DIVING COACH) No Keenan Mckoy, RN Note: Problem: Knowledge [...] on filedocumented in this encounter Care Teams Reading Professor Relationship Specialty Start Date End Date Sera Howard PA 10[address] [facility] [address] [place] [address] PCP - General Internal Medicine 01/03/19 Rikki Romero MD [address] [facility] [address] [place] [address] Consulting Physician Pulmonary Disease 01/30/19 Sultan Maria Luisa Teran MD [address] [facility] [address] [address] Fitter Welder Cardiovascular Disease 01/30/19 [place] [address] [address] Consulting Physician Cardiovascular Disease 08/27/24 [place] [address] [address] Surgeon Thoracic Surgery 01/06/25 documented as of this encounter
--- OUTSIDE RECORDS SUMMARY | 2025-05-19 14:35 | XMS_ITS | Clinical Summary ---
Author Organization [facility] [facility] Address [address] [place] [address] Care Team Providers Care Wool Broker Name Role Phone Jon Howard Primary Care Provider [phone] Rikki Romero MD Unavailable [phone] [place] Maria Luisa Teran MD Unavailable [phone] Cary Pena MD Unavailable [phone] Rigoberto Rodriguez MD Unavailable [phone] Allergies No known active allergies Medications acetaminophen [...] ns:Chronic obstructive pulmonary disease, unspecified COPD type ([facility]),Seasonal allergic rhinitis due to pollen INHALE [...] Physical therapy and Occupational therapy outpatient at [facility]. Referral given. Await their recommendation [facility] Yvrose [...] and his lack of follow-up with his patternmaker plastics. He says he will make an appointment [...] re-evaluate Assessment & Plan (11/25/2021 10:04 PM SPEECH AND HEARING CLINIC DIRECTOR): Probably multifactorial. Check labs and followup to [...] provided. Assessment & Plan (11/24/2020 11:04 AM SPEECH AND HEARING CLINIC DIRECTOR): He was encouraged to lose weight. Assessment & Plan (10/21/2020 8:36 AM SPEECH AND HEARING CLINIC DIRECTOR): Obesity is unchanged. Discussed the patient's BMI. The BMI is above average. BMI management plan is completed. BMI Follow-up includes: nutrition counseling, exercise counseling and education provided. Moderate persistent asthma without complication 08/23/2019 Assessment & Plan (11/25/2023 10:14 PM SPEECH AND HEARING CLINIC DIRECTOR): Continue per pulmonology. See COPD Assessment & Plan (08/28/2021 12:53 PM SPEECH AND HEARING CLINIC DIRECTOR): Stop smoking. Continue per Pulmonary Assessment & Plan (06/22/2021 10:24 AM CDT): Continue per Pulmonary He has stopped smoking Cigar smoker 02/01/2019 Overview (02/01/2019): Assessment & Plan (08/28/2021 12:53 PM SPEECH AND HEARING CLINIC DIRECTOR): Encouraged smoking cessation. Discussed 3 minutes. Reviewed options for assistance with cessation. Reviewed harmonica maker sequela associated with smoking. Pt declines assistance at this time but may contact the office at anytime for further help as they desire. Assessment & Plan (02/26/2021 12:02 AM CDT): Stop smoking. Encouraged smoking cessation. Discussed 3 minutes. Reviewed options for assistance with cessation. Reviewed harmonica maker sequela associated with smoking. Pt declines assistance at this time but may contact the office at anytime for further help as they desire. Assessment & Plan (11/24/2020 11:01 AM SPEECH AND HEARING CLINIC DIRECTOR): He was strongly advised to stop smoking. Assessment & Plan (11/18/2020 1:49 PM SPEECH AND HEARING CLINIC DIRECTOR): Stop smoking. Assessment & Plan (10/25/2020 6:31 PM SPEECH AND HEARING CLINIC DIRECTOR): Encouraged smoking cessation. Discussed 3 minutes. Reviewed options for assistance with cessation. Reviewed harmonica maker sequela associated with smoking. Pt declines assistance at this time but may contact the office at anytime for further help as they desire. Assessment & Plan (02/27/2019 8:01 PM CDT): Encouraged smoking cessation. Discussed approx 3 minutes. No desire to stop Assessment & Plan (02/01/2019 12:59 PM CDT): Encouraged smoking cessation. Discussed approx 3 minutes. Not interested in cessation History of [place] (myocardial infarction) 02/01/2019 Overview (02/01/2019): 01/2018 . Assessment & Plan (11/24/2020 11:03 AM SPEECH AND HEARING CLINIC DIRECTOR): No definite history of an [place]. . Though he thinks that he had an [place]. Assessment & Plan (02/27/2019 8:01 PM CDT): [...] pulmonary Assessment & Plan (10/25/2020 5:17 PM SPEECH AND HEARING CLINIC DIRECTOR): Patient has needed supplies but has not been using. Encouraged to restart and followup with Pulmonary. He will set the appointment Assessment & Plan (02/27/2019 8:07 PM CDT): Encoruaged to use qnight. Has needed supplies Assessment & Plan (02/01/2019 12:50 PM CDT): Encoaurged to use to avoid harmonica maker sequela from untreated PIERRE not limited to [...] concerns. Assessment & Plan (08/28/2021 12:50 PM SPEECH AND HEARING CLINIC DIRECTOR): Continue per cardio. He still has not called Dr. dalton it is office to reschedule. Strongly encouraged an appointment. Assessment & Plan (02/26/2021 12:02 AM CDT): Continue per Cardio. Assessment & Plan (11/24/2020 11:01 AM SPEECH AND HEARING CLINIC DIRECTOR): History of paroxysmal atrial fibrillation. Was on Multaq and Xarelto at 1 time. No more. The EKG today shows a normal sinus rhythm, normal QRS morphology. Assessment & Plan (11/18/2020 1:47 PM SPEECH AND HEARING CLINIC DIRECTOR): Has followup with Cardio Dr. Teran. Will discuss AC with him. Assessment & Plan (10/25/2020 6:21 PM SPEECH AND HEARING CLINIC DIRECTOR): This is a significant, separately identifiable problem [...] 01/30/2019 Assessment & Plan (11/24/2020 11:06 AM SPEECH AND HEARING CLINIC DIRECTOR): Exertional dyspnea on mild to moderate activity . The labs are reviewed. Will get an echo Doppler study to assess the left ventricular systolic function. Lexiscan stress test to look for myocardial ischemia. Non compliance w medication regimen 01/30/2019 Assessment & Plan (06/22/2021 10:21 AM CDT): Stressed importance of taking his medications daily to manage his conditions and prevent fci sequela Assessment & Plan (10/25/2020 6:28 PM SPEECH AND HEARING CLINIC DIRECTOR): Stressed importance of taking medication as instructed. [...] outcomes/sequela not limited to , stroke, another [place], renal failure, debility, etc. He voices full understanding. COPD (chronic obstructive pulmonary disease) 10/2018 Assessment & Plan (11/25/2023 10:13 PM SPEECH AND HEARING CLINIC DIRECTOR): Patient has quit smoking. Continue per pulmonology Dr. Romero. Continue Singulair albuterol and Trelegy Assessment & Plan (01/09/2023 9:40 PM CDT): Continue per pulmonology. Patient states he is completely quit smoking Assessment & Plan (05/01/2022 11:24 PM CDT): Patient needs to set follow-up with his extractor filler Dr. Romero. Stressed the importance of regular care Assessment & Plan (11/25/2021 10:02 PM SPEECH AND HEARING CLINIC DIRECTOR): Significant disease. Continue per Dr. Romero. Assessment & Plan (08/28/2021 12:53 PM SPEECH AND HEARING CLINIC DIRECTOR): Stop smoking. Continue per Pulmonary. Stressed importance of setting follow-up plan keeping them. Assessment & Plan (02/26/2021 12:01 AM CDT): Stop smoking. Continue per pulmonary Assessment & Plan (11/24/2020 11:02 AM SPEECH AND HEARING CLINIC DIRECTOR): Was told to stop smoking. He has an appointment to see Dr. Romero in pulmonary consultation. Assessment & Plan (11/18/2020 1:47 PM SPEECH AND HEARING CLINIC DIRECTOR): Restarted inhalers and singulair. Encouraged to make followup appt with Dr. Romero Stop cigars. Assessment & Plan (10/25/2020 5:18 PM SPEECH AND HEARING CLINIC DIRECTOR): This is a significant, separately identifiable problem [...] day Assessment & Plan (09/08/2024 10:24 PM SPEECH AND HEARING CLINIC DIRECTOR): Depression symptoms have been stable with Cymbalta 60 and Wellbutrin XL 300. Refills sent to pharmacy Assessment & Plan (07/21/2024 4:09 PM CDT): Continue Cymbalta and Wellbutrin Assessment & Plan (11/25/2023 10:13 PM SPEECH AND HEARING CLINIC DIRECTOR): Depression symptoms are stable with Cymbalta 60 [...] 60 Assessment & Plan (11/25/2021 10:03 PM SPEECH AND HEARING CLINIC DIRECTOR): Continue Cymbalta Assessment & Plan (06/22/2021 10:23 AM CDT): Continue cymbalta Assessment & Plan (02/26/2021 12:02 AM CDT): Continue cymbalta Assessment & Plan (11/18/2020 1:50 PM SPEECH AND HEARING CLINIC DIRECTOR): Increase Cymbalta to 60mg daily. Assessment & Plan (10/25/2020 6:31 PM SPEECH AND HEARING CLINIC DIRECTOR): This is a significant, separately identifiable problem [...] 01/30/2019 Assessment & Plan (10/25/2020 6:31 PM SPEECH AND HEARING CLINIC DIRECTOR): Managed currently without medicatoin Assessment & Plan (02/27/2019 8:02 PM CDT): Continue current regimen Assessment & Plan (02/01/2019 1:08 PM CDT): Restart singulair/otc antihistamines. Gastroesophageal reflux disease without esophagi tis 01/30/2019 Assessment & Plan (08/28/2021 12:53 PM SPEECH AND HEARING CLINIC DIRECTOR): Continue PPI Assessment & Plan (10/25/2020 6:23 PM SPEECH AND HEARING CLINIC DIRECTOR): Stable without medication. Sxs are better with stopping alcohol Assessment & Plan (02/27/2019 8:04 PM CDT): Managed without medication. Decrease triggers including tobacco and alcohol. Assessment & Plan (02/01/2019 12:56 PM CDT): Not complaining of sxs. Today. Recommend to stop alcohol as can be a trigger. Recovering alcoholic 01/30/2019 Overview (11/18/2020): Last drink summer 2019 Assessment & Plan (11/25/2023 10:13 PM SPEECH AND HEARING CLINIC DIRECTOR): Patient states he has not been drinking for quite a few years. He is adopted his grandson and is very motivated to remain off alcohol Assessment & Plan (01/09/2023 9:42 PM CDT): Patient states he continues to refrain from alcohol use Assessment & Plan (11/25/2021 10:04 PM SPEECH AND HEARING CLINIC DIRECTOR): Patient had gone during free for quite a while but states he has returned to drinking some alcohol at times. States it is difficult to not drink when friends come over. Strongly encouraged him to have full cessation and to join AA or other support group so that he can remain off the alcohol. Assessment & Plan (08/28/2021 12:53 PM SPEECH AND HEARING CLINIC DIRECTOR): Continue cessation. Assessment & Plan (06/22/2021 10:23 AM CDT): Continue full alcohol cessation Assessment & Plan (02/26/2021 12:00 AM CDT): Continue abstienence. Assessment & Plan (11/24/2020 11:05 AM SPEECH AND HEARING CLINIC DIRECTOR): Last during summer 2019. Assessment & Plan (11/18/2020 1:46 PM SPEECH AND HEARING CLINIC DIRECTOR): Still no alcohol use. Assessment & Plan (10/25/2020 5:07 PM SPEECH AND HEARING CLINIC DIRECTOR): Encouraged to consider abstinence. Discussed AA but [...] High EST. AVG GLUCOSE, A1C mg/dL [address] [facility] Lab Results Component Value Date HGBA1C [...] losartan Assessment & Plan (11/25/2023 10:14 PM SPEECH AND HEARING CLINIC DIRECTOR): Stressed importance of continued A1c control to minimize the harmonica maker effects of diabetes. Bring accuchecks to office [...] of continued A1c control to minimize the harmonica maker effects of diabetes. Bring accuchecks to office [...] adjusted. Assessment & Plan (10/28/2022 3:14 PM SPEECH AND HEARING CLINIC DIRECTOR): This is a chronic condition which is [...] of continued A1c control to minimize the harmonica maker effects of diabetes. Bring accuchecks to office when instructed to do so. Check A1c about every 3-6 months. Take medication as prescribed. Get annual eye exam. Encouraged NGUYỄN/Statin if able to tolerate. Encouraged weight control and encouraged diabetic diet and exercise. Continue with gabapentin p.r.n. Assessment & Plan (12/20/2021 8:23 AM CDT): Stressed importance of continued A1c control to minimize the fci effects of diabetes. Bring accuchecks to office [...] of continued A1c control to minimize the harmonica maker effects of diabetes. Bring accuchecks to office [...] of continued A1c control to minimize the harmonica maker effects of diabetes. Bring accuchecks to office when instructed to do so. Check A1c about every 3-6 months. Take medication as prescribed. Get annual eye exam. Encouraged NGUYỄN/Statin if able to tolerate. Encouraged weight control and encouraged diabetic diet and exercise. Assessment & Plan (11/24/2020 11:02 AM SPEECH AND HEARING CLINIC DIRECTOR): Uncontrolled. On 10/29/2020 the A1c was 10.6. Assessment & Plan (10/25/2020 5:08 PM SPEECH AND HEARING CLINIC DIRECTOR): Need to reassess DM control and restart treatment. Assessment & Plan (02/27/2019 7:58 PM CDT): Diabetes is not well controlled. Stressed importance of continued A1c control to minimize the harmonica maker effects of diabetes. Bring accuchecks to office [...] of continued A1c control to minimize the fci effects of diabetes. Bring accuchecks to office when instructed to do so. Check A1c about every 3-6 months. Take medication as prescribed. Get annual eye exam. Encouraged NGUYỄN/Statin if able to tolerate. Encouraged weight control and encouraged diabetic diet and exercise. Nicotine dependence, unspecified, uncomplicated 08/24/2016 Assessment & Plan (11/24/2020 11:04 AM SPEECH AND HEARING CLINIC DIRECTOR): Down to 2 cigars daily have was advised strongly to totally stop. Assessment & Plan (10/25/2020 5:08 PM SPEECH AND HEARING CLINIC DIRECTOR): Stop cigar/nicotine use Resolved Problems Problem Noted Date Diagnosed Date Resolved Date Diabetic ketoacidosis withou t coma associated with type 2 diabetes mellitus 12/23/2024 03/17/2025 Laceration of left leg 09/08/202401/01 Assessment & Plan (09/08/2024 9:07 PM SPEECH AND HEARING CLINIC DIRECTOR): Less leg laceration is healing well. Well-approximated [...] provided. Assessment & Plan (11/23/2021 7:26 AM SPEECH AND HEARING CLINIC DIRECTOR): Obesity is unchanged. Discussed the patient's BMI. The BMI is above average. BMI management plan is completed. BMI Follow-up includes: nutrition counseling, exercise counseling and education provided. Annual physical exam 11/23/2021 022 Assessment & Plan (11/25/2021 10:04 PM SPEECH AND HEARING CLINIC DIRECTOR): Encouraged healthy lifestyle, good nutrition and exercise. Encouraged Calcium and Vitamin D and weight bearing exercise for bone health. Reviewed immunizations Reviewed age appropirate screenings. Need for influenza vaccination 08/28/2021 12/20/2021 Assessment & Plan (08/28/2021 12:53 PM SPEECH AND HEARING CLINIC DIRECTOR): Flu updated in office today Obesity (BMI 30-39.9) 02/26/20212021 Assessment & Plan (11/23/2021 7:26 AM SPEECH AND HEARING CLINIC DIRECTOR): Obesity is unchanged. Discussed the patient's BMI. [...] 10/25/2020 Assessment & Plan (10/25/2020 6:32 PM SPEECH AND HEARING CLINIC DIRECTOR): Check labs BMI 34.0-34.9,adult 10/21/2020 02/17/20 Assessment & Plan (10/21/2020 8:36 AM SPEECH AND HEARING CLINIC DIRECTOR): Obesity is unchanged. Discussed the patient's BMI. The BMI is above average. BMI management plan is completed. BMI Follow-up includes: nutrition counseling, exercise counseling and education provided. Medicare annual wellness visit, initial 02/18/2019 11/18/2020 Assessment & Plan (10/25/2020 6:31 PM SPEECH AND HEARING CLINIC DIRECTOR): Encouraged healthy lifestyle, good nutrition and exercise. [...] 01/09/2023 Assessment & Plan (11/25/2021 10:04 PM SPEECH AND HEARING CLINIC DIRECTOR): Persistent cough related to long-time smoking asthma and COPD Assessment & Plan (02/27/2019 8:06 PM CDT): Awaiting recommendations from Pulmonary. Stop smoking Assessment & Plan (02/01/2019 12:53 PM CDT): Significant cough as the result of smoking and untreated/undertreated asthma and COPD. See both asthma and COPD for plan and followup with Pulmonary Other fatigue 02/01/2019 11/18/2020 Assessment & Plan (10/25/2020 6:31 PM SPEECH AND HEARING CLINIC DIRECTOR): Probably multifactorial. Check labs and followup to re-evaluate Assessment & Plan (02/27/2019 8:02 PM CDT): Probably multifactorial including uncontrolled DM/HTN, COPD, History of [place] and alcoholism. Continue to monitor Assessment & [...] 01/09/2023 Assessment & Plan (11/23/2021 8:08 AM SPEECH AND HEARING CLINIC DIRECTOR): Needs to followup with Dr. Romero. Still wheezing in all feliz. Assessment & Plan (10/25/2020 6:36 PM SPEECH AND HEARING CLINIC DIRECTOR): This is a significant, separately identifiable problem [...] 05/12/2022 Assessment & Plan (11/23/2021 8:11 AM SPEECH AND HEARING CLINIC DIRECTOR): Stressed importance of continued A1c control to minimize the harmonica maker effects of diabetes. Bring accuchecks to office [...] bid Assessment & Plan (08/28/2021 12:51 PM SPEECH AND HEARING CLINIC DIRECTOR): Stressed importance of continued A1c control to minimize the fci effects of diabetes. Bring accuchecks to office [...] of continued A1c control to minimize the fci effects of diabetes. Bring accuchecks to office when instructed to do so. Check A1c about every 3-6 months. Take medication as prescribed. Get annual eye exam. Encouraged NGUYỄN/Statin if able to tolerate. Encouraged weight control and encouraged diabetic diet and exercise. Due for labs to be able to monitor control Assessment & Plan (11/18/2020 1:49 PM SPEECH AND HEARING CLINIC DIRECTOR): Stressed importance of continued A1c control to minimize the fci effects of diabetes. Bring accuchecks to office [...] exercise/activity Assessment & Plan (10/25/2020 6:36 PM SPEECH AND HEARING CLINIC DIRECTOR): This is a significant, separately identifiable problem that was evaluated and managed on the same day as the wellness exam Stressed importance of continued A1c control to minimize the harmonica maker effects of diabetes. Bring accuchecks to office [...] of continued A1c control to minimize the harmonica maker effects of diabetes. Bring accuchecks to office [...] of continued A1c control to minimize the fci effects of diabetes. Bring accuchecks to office [...] amlodipine. Assessment & Plan (10/28/2022 3:15 PM SPEECH AND HEARING CLINIC DIRECTOR): This is a chronic condition which is [...] office. Assessment & Plan (11/23/2021 8:12 AM SPEECH AND HEARING CLINIC DIRECTOR): Bp is stable/in acceptable range for any co-morbidities. Encouraged to limit sodium intake and exercise for weight control. Assessment & Plan (08/28/2021 12:52 PM SPEECH AND HEARING CLINIC DIRECTOR): Bp is stable/in acceptable range for any [...] of continued A1c control to minimize the harmonica maker effects of diabetes. Bring accuchecks to office [...] cardio Assessment & Plan (11/24/2020 11:03 AM SPEECH AND HEARING CLINIC DIRECTOR): Salt restriction. Losartan. Blood pressure 120/80. Assessment & Plan (11/18/2020 1:48 PM SPEECH AND HEARING CLINIC DIRECTOR): Bp is still elevated acceptable range for any co-morbidities. Encouraged to limit sodium intake and exercise for weight control. Increase the losartan to 100mg daily. Will reassess in 3 months. Has appt with Cardio who will also check his bp. Assessment & Plan (10/25/2020 6:22 PM SPEECH AND HEARING CLINIC DIRECTOR): This is a significant, separately identifiable problem [...] asso ciated with type 2 diabetes mellitus ([facility]) 02/22/2018 05/12/2022 Precordial chest pain 10/28/20162023 Assessment & Plan (11/24/2020 11:05 AM SPEECH AND HEARING CLINIC DIRECTOR): Chest pains off and on. In the [...] Type Department Care Team Description 05/19/2025 Telephone [facility] Diabetes Endocrine Care at [address] [place] [id number] Chelsie Boyle, BRICK CARRIER 05/19/2025 Telephone [facility] Diabetes Endocrine Care at [address] [place] [address] Chelsie Boyle, BRICK CARRIER 05/15/2025 11:30 AM CDT Office Visit [facility] Pulmonology [address] [facility] [address] [place] [address] Rikki Romero MD Moderate persistent asthma without complication (Primary Dx); Chronic obstructive pulmonary disease, unspecified COPD type (HCC); Seasonal allergic rhinitis due to pollen; Nicotine dependence, cigarettes, in remission; Abnormal CT of the chest; Dyspnea on exertion 05/12/2025 8:45 AM CDT - 05/12/2025 11:59 PM CDT Hospital Encounter [facility] Respiratory Therapy [address] [place] [id number] Dyspnea on exertion; Shortness of breath Discharge Disposition: Discharge to home or self care 02/26/2025 8:30 AM CDT Office Visit [facility] Family Medicine [address] [place] [address] Jon Howard PA Medicare annual [...] Obesity (BMI 30.0-34.9); BMI 33.0-33.9,adult 02/18/2025 Telephone [facility] Family Medicine [address] [place] [address] oJn Howard PA from Last 3 Months Immunizations [...] drink = 0.6 oz pur e alcohol) [facility] Utilities Answer Date Recorded In the past [...] often do you attend chur ch or buddhism services? Never 12/24/2024 Do you belong to any clubs o r organizations such as restorationist groups, unions, fraternal or athletic groups, or [...] any time in the past 12 m [facility], were you homeless or living in a long-term (including now)? No 12/24/2024 Personal Safety Answer Date Recorded Have you ever been in or are you currently in a harmful physical or emotional relationship or is someone making you feel afraid or unsafe? Denies 01/17/2025 Sex and Gender Information Value Date Recorded Sex Assigned at Not on file Legal Sex Male 6:48 AM SPEECH AND HEARING CLINIC DIRECTOR Gender Identity Not on file Sexual [...] ACO Care Management On track(2023 4:22 PM SPEECH AND HEARING CLINIC DIRECTOR) Keenan Acevedo, RN Note: Problem: Knowledge deficit [...] CDT PSA SCREEN Routine 12/06/2024 8:52 AM SPEECH AND HEARING CLINIC DIRECTOR Prostate cancer screening Annual physical exam LIPID PANEL Routine 12/06/2024 8:49 AM SPEECH AND HEARING CLINIC DIRECTOR Type 2 diabetes mellitus with hyperlipidemia (HCC) Annual physical exam COLONOSCOPY 06/13/2024 9:06 AM CDT HEPATITIS PANEL, ACUTE Routine 03/07/2018 5:41 AM CDT from Last 3 Months or Most Recently Relevant to Health Maintenance Results * (ABNORMAL) Pulmonary Function Test - (05/12/2025 9:52 AM CDT) FVC POST 4.50 3.56 - 5.85 L [facility] FEV1 POST 2.71 2.69 - 4.47 L [facility] [id number] 60.19(A) 64.61 - 87.67 % [facility] [id number]% POST 1.35(A) 1.39 - 4.99 L/s [facility] PEF POST 5.17(A) 6.57 - 10.55 L/s [facility] DLCOc SB 23.43 22.68 - 36.53 ml/(min*mm Hg) [facility] DLCO/VA PRE 4.35 2.90 - 5.18 ml/(min*mm Hg*L) [facility] VA 5.39(A) 7.18 - 7.18 L [facility] TLC PRE 6.53 6.18 - 8.48 L [facility] VC PRE 3.21(A) 3.69 - 5.54 L [facility] IC PRE 2.35(A) 3.42 - 3.42 L [facility] FRC PL PRE 4.18 2.70 - 4.67 L [facility] ERV PRE 0.86(A) 1.19 - 1.19 L [facility] RV PRE 3.32(A) 1.82 - 3.17 L [facility] VTG 4.21 L [facility] RAW PRE 2.75(A) 3.06 - 3.06 cmH2O*s/L [facility] FVC PRE 3.21(A) 3.56 - 5.85 L [facility] FEV1 PRE 2.18(A) 2.69 - 4.47 L [facility] [id number] 68.10 64.61 - 87.67 % [facility] [id number]% PRE 1.50 1.39 - 4.99 L/s [facility] PEF PRE 4.50(A) 6.57 - 10.55 L/s [facility] Anatomical Region Laterality Modality PFT 05/12/2025 9:00 [...] was last revised 2019. Testing performed by: [address] [address] Creatinine Ur 63.9 mg/dL JESS Comment: Interpretive Data No reference range established. Current interpretive data was last revised 2019. Testing performed by: [address] [address] Albumin Creatinine Ratio, Ur <19 1 - 29 mg/g JESS Comment:Testing performed by : [address] [address] Urine 01/29/2025 9:11 AM CDT 01/29/2025 1:06 PM CDT Chelsie Boyle NP LAB URINE ORDERABLES Final Resu lt JESS [address] Department [place] [address] * (ABNORMAL) DIABETES EYE EXAM (01/24/2025 7:47 [...] [facility] LAB BLOOD ORDERABLES Final Result JESS [id number] [facility] Department [place] [address] * (ABNORMAL) Hemoglobin A1c (12/23/2024 8:27 AM CDT) Hgb A1C 11.0(H) 4.0 - 5.6 % Estimated Average Glucose 269 mg/dL JESS BENITEZ Comment: The ADA recommends reporting an estimated Average Glucose (eAG) with all Hemoglobin A1c results using the equation derived from a study of 507 normal and diabetic adults. Minority populations were underrepresented and children were not included. (Diabetes Care 31:5449-1458, 2008). The eAG is not equivalent to a fasting glucose. Blood 12/23/2024 8:27 AM CDT 12/23/2024 8:33 AM CDT Emiliano Osborne DO LAB BLOOD ORDERABLES Final Res ult JESS [facility] Department [place] [address] * PSA screen (12/06/2024 8:52 AM SPEECH AND HEARING CLINIC DIRECTOR) PSA 0.24 < OR = 4.00 ng/mL [facility] [facility] Comment: The total PSA value from this assay system is standardized against the WHO standard. The test result will be approximately 20% lower when compared to the equimolar-standardized total PSA ([place]). Comparison of serial PSA results should be interpreted with this fact in mind. This test was performed using the Siemens chemiluminescent method. Values obtained from different assay methods cannot be used interchangeably. PSA levels, regardless of value, should not be interpreted as absolute evidence of the presence or absence of disease. Blood 12/06/2024 8:52 AM SPEECH AND HEARING CLINIC DIRECTOR 12/06/2024 8:53 AM SPEECH AND HEARING CLINIC DIRECTOR Narrative [facility] - 12/07/2024 2:37 AM SPEECH AND HEARING CLINIC DIRECTOR FASTING:YES FASTING: YES Jon HAILE LAB BLOOD ORDERABLES Final Result Performing Organization Address City/[facility] Co de Phone Number [facility] [address] [place] [address] * Lipid panel (12/06/2024 8:49 AM SPEECH AND HEARING CLINIC DIRECTOR) Cholesterol 123 <200 mg/dL [facility] HDL 61 > OR = 40 mg/dL [facility] Triglycerides 92 <150 mg/dL [facility] LDL 44 mg/dL (calc) [facility] [...] LDL-C. William SS et al. MAIKEL. 2013;310(19): 0461-9316 (http://education.AwoX/faq/XOJ226) Chol/HDL ratio 2.0 <5.0 (calc) [facility] Non-HDL, (LDL+VLDL) 62 <130 mg/dL (calc) [employer] [employer] [facility] Comment: For patients with diabetes plus 1 major ASCVD risk factor, treating to a non-HDL-C goal of <100 mg/dL (LDL-C of <70 mg/dL) is considered a therapeutic option. Blood 12/06/2024 8:49 AM SPEECH AND HEARING CLINIC DIRECTOR 12/06/2024 8:51 AM SPEECH AND HEARING CLINIC DIRECTOR Narrative [facility] - 12/06/2024 10:49 PM SPEECH AND HEARING CLINIC DIRECTOR FASTING:YES FASTING: YES Jon HAILE LAB BLOOD ORDERABLES Final Result [facility] [address] [place] [address] * Colonoscopy (06/13/2024 9:06 AM CDT) Anatomical Region Laterality Modality Other Narrative Procedure Note Albino Calabrese MD - 06/13/2024 9:06 AM CDT [facility] GI ENDOSCOPY Patient Name: Daniele Vu Procedure Date: 06/13/2024 9:06 AM Date of : 1960 Admit Type: Outpatient Age: 63 Gender: Male Attending MD: Albino Calabrese M.D. Room: [facility] ENDOSCOPY ROOM 04 Note Status: Finalized Procedure: [...] The scope was passed under direct vision.The PCF-[id number] colonoscope was introduced through theanus and advanced [...] On: 06/13/2024 9:06 AM Recognized by the [place] [employer] for promoting quality in endoscopy us Albino Calabrese MD ENDOSCOPY PROCEDURES Final Resul t * Hepatitis panel, acute (03/07/2018 5:41 AM CDT) HepBsAg NONREACT NONREACTIVE 03/07/2018 9:19 AM [facility] HISTORICAL RESULTS Comment: EyegrooveP using CONCEPCIÓN (chemiluminescent immunoassay) technology. NONREACTIVE: IgM [...] IgM NONREACT NONREACTIVE 8 9:45 AM T [facility] HISTORICAL RESULTS Comment: Siemens CentaurXP using CONCEPCIÓN (chemiluminescent immunoassay) technology. NONREACTIVE: IgM antibodies to Hepatitis B Core antigen not detected. EQUIVOCAL: IgM antibodies to Hepatitis B Core antigen may or may not be present. Obtain a new specimen and retest. REACTIVE: IgM antibodies to Hepatitis B Core antigen detected. Hep A IgM NONREACT NONREACTIVE 03/07/2018 9:[address] [facility] HISTORICAL RESULTS Comment: Siemens CentaurXP using CONCEPCIÓN (chemiluminescent immunoassay) technology. NONREACTIVE: IgM antibodies to Hepatitis A not detected. This does not exclude possibility of exposure to Hepatitis A or early acute infection. EQUIVOCAL:IgM antibodies to Hepatitis A may or may not be present. Suggest recollection and retest. REACTIVE: Antibodies to Hepatitis A detected. Hep C Ab NONREACT NONREACTIVE Comment: Siemens CentaurXP using CONCEPCIÓN [...] MICROBIOLOGY - GENERAL OR DERABLES Final Result [facility] HISTORICAL RESULTS from Last 3 Months or Most Recently Relevant to Health Maintenance Insurance [facility] MEDICARE ADVANTAGE [place] [id number] [employer] MEDICARE PPO [facility] MEDICARE ADVANTAGE [facility] MEDICARE ADVANTAGE Advance Directives For more information, please contact: [phone] * Full Code (Latest Code Status on File) Date Activated Date Inactivated Comments 01/01/2025 5:52 PM 01/06/2025 7:29 PM * Full Code Date Activated Date Inactivated Comments 12/23/2024 2:09 PM 01/01/2025 5:52 PM * Full Code Date Activated Date Inactivated Comments 04/15/2022 7:48 PM 04/18/2022 10:28 PM * Full Code Date Activated Date Inactivated Comments 04/15/2022 4:24 PM 04/15/2022 7:48 PM Care Teams Wool Broker Relationship Specialty Start Date End Date Jon Howard PA [address] [address] PCP - General Internal Medicine 01/03/19 Rikki Romero MD [address] [place] [address] [place] [address] Consulting Physician Pulmonary Disease 01/30/19 Sultan Maria Luisa Teran MD [address] [place] [address] [address] Wire Twister Cardiovascular Disease 01/30/19 [place] [address] [address] Consulting Physician Cardiovascular Disease 08/27/24 [place] [address] [address] Surgeon Thoracic Surgery 01/06/25
== END 2025-05-19 13:31 | disposition left against medical advice (07) ==
LOC: ANHED 13:30
PROVIDERS: Emergency Provider General Practice; PCP Physician Assistant
DX: E16.2 Hypoglycemia, unspecified (principal)
CPT/HCPCS: 82948; 99199